=== PATIENT | male | born 1950 | race Caucasian/White ===

== ENCOUNTER → 2018-04-05 14:12 | Outpatient (CLI) | payer MEDICARE, OTHER ==
[~2018-04-05 14:12] MED LIST: ALDACTONE25 MG PO; BAYER CHEWABLE81 MG PO; COREG 3.1253.125 MG PO; LANOXIN125 MCG PO; LIPITOR10 MG PO; METOPROLOL-HCT1 EACH PO; POTASSIUM20 MEQ/11 PO; ZYLOPRIM300 MG PO
[2018-04-30 09:29] VITALS: BMI 26.2
== END | disposition home or self-care (01) ==
LOC: D.CT 04-01 15:00
DX: R06.00 Dyspnea, unspecified (principal); R93.89 Abnormal findings on diagnostic imaging of other specified body structures

== ENCOUNTER 2018-04-06 11:29 | Inpatient (IN) | payer MEDICARE, OTHER ==
[~2018-04-06] VITALS: Ht 180.3 cm; Wt 84.0 kg
--- NOTE | ~2018-04-06 | MORECARE ---
CASE MANAGEMENT DISCHARGE SUMMARY PATIENT: LAUREN ROSARIO UNIT: [id number] ADM DATE: 04/06/18 AGE: 68 : 48 SEX: M ROOM/BED: D.2124 AUTHOR: CRYSTAL MICHELLE PHYSICIAN: REFERRING PHYSICIAN: JOSE J DE LOS SANTOS MD DATE OF SERVICE: 04/14/18 Discharge Plan Patient Name: LAUREN ROSARIO Facility: [facility]:[place] : 1950 Planned Disposition: Home Anticipated Discharge Date: 04/14/18 Discharge Date: Expected LOS: 8 Initial Reviewer: [email or web address] Initial Review Date: 04/14/2018 Generated: 04/14/18 4:37 pm External Providers [facility] Next Contact Date: 04/14/2018 Service Request Date: Service Type: Resolution: Reviewer: Comments: Patient Name: LAUREN ROSARIO Page [phone] at 1538 All edits/amendments must be made on the electronic document DICTATION DATE: 04/14/181536 TELEVISION HOST: ALYSON 04/14/181536 RPT#: [id number] PR DATE: STATUS: ADM IN [facility] [address] [place] [address] END OF REPORT
--- NOTE | ~2018-04-06 | MORECARE ---
CASE MANAGEMENT DISCHARGE SUMMARY PATIENT: LAUREN ROSARIO UNIT: [id number] ADM DATE: 04/06/18 AGE: 68 : 48 SEX: M ROOM/BED: D.9224 AUTHOR: CRYSTAL MICHELLE PHYSICIAN: REFERRING PHYSICIAN: JOSE J DE LOS SANTOS MD DATE OF SERVICE: 04/15/18 Discharge Plan Patient Name: LAURNE ROSARIO Facility: [facility]:[place] : 1950 Planned Disposition: Home Anticipated Discharge Date: 04/14/18 Discharge Date: 04/14/2018 Expected LOS: 8 Initial Reviewer: [email or web address] Initial Review Date: 04/14/2018 Generated: 04/15/18 5:13 pm Comments DCP- Discharge Planning Updated by [email or web address]: Mo Howell on 04/15/18 3:[address] Patient Name: LAUREN ROSARIO Encounter No: [id number] : 1950 Primary Insurance: MEDICARE A & B Anticipated DC Date: 04-14-2018 Planned Disposition: Home DCP follow-up note: CM RECEIVED CALL FROM RANDOLPH OF [facility] PATIENT WHO INFORMED CM THAT THEY OFFERED PT THE OVERNIGHT PULSE OXIMETRY TESTING AND PT DECLINED THE TEST AND REPORTED HE DID NOT WANT TO SLEEP WITHOUT OXYGEN FOR THE TEST (PATIENT IS BORROWING OXYGEN FROM A FAMILY MEMBER). JANE Alvarez DCP- Discharge Planning Updated by [email or web address]: Mo Howell on 04/14/18 2:[address] Patient Name: LAUREN ROSARIO Admission Status: Urgent Accout number: [id number] Admission Date: 04-06-2018 : 1950 Admission Diagnosis:SHORTNESS OF BREATH Attending: JOSE J DE LOS SANTOS Current LOS: 8 Anticipated DC Date: 04-14-2018 Planned Disposition: Home Primary Insurance: MEDICARE A & B Discharge Planning Comments: CM MET WITH PT AND SPOUSE IN ROOM TO DISCUSS DISCHARGE PLANNING AND NEEDS. LAUREN ROSARIO provided verbal consent to discuss current and ongoing needs with/in the presence of: SPOUSE, RANDOLPH. PT REPORTS LIVING AT HOME INDEPENDENTLY WITH SPOUSE AND EXTENDED FAMILY. PT HAS NO MEDICAL EQUIPMENT AND NO OUTSIDE SERVICES ASSISTING IN THE HOME. CM DISCUSSED AVAILABILITY OF HOME HEALTH, REHAB SERVICES AND MEDICAL EQUIPMENT. PT DENIES DISCHARGE NEEDS, REPORTS HIS IS HERE TO PICK HIM UP FOR DISCHARGE HOME TODAY. IMPORTANT MESSAGE FROM MEDICARE PROVIDED AND EXPLAINED. PT REPORTS AGREEMENT WITH OVERNIGHT PULSE OXIMETRY ORDER, PT REPORTS NOT QUALIFYING DURING WALK TESTING TODAY (LOWEST 94% ON ROOM AIR DURING EXERTION) AND THE DOCTOR STATES PT NEEDS THE OXGYEN MAINLY AT NIGHT. PT WOULD LIKE TESTING FROM [facility] PATIENT. CM RECEIVED ORDER FOR OVERNIGHT PULSE OXIMETRY TESTING. CM CALLED [facility] PATIENT, , SPOKE TO RANDEE WHO WILL CONTACT PT FOR ARRANGEMENT OF TESTING. CM FAXED REFERRAL TO [facility] PATIENT AT [phone]. MECHANICAL INTEGRITY ENGINEER NURSE NOTIFIED. PT DENIES FURTHER NEEDS. DISCHARGE ADDRESS: [address] [place] [address], [place] [address]. Flake Or Shred Roll Operator: Mo Howell DCPIA - Discharge Planning Initial Assessment Updated by [email or web address]: Mo Howell on 04/14/18 3:46 pm * Is the patient Alert and Oriented? Yes * How many steps to enter\exit or inside your home? * PCP DR. DE LOS SANTOS * [facility] * Preadmission Environment Home with Family * ADLs Independent * Equipment None * Other Equipment [facility] PATIENT - PREFERRED PROVIDER * List name and contact numbers for known caregivers / representatives who currently or will assist patient after discharge: RANDOLPH ROSARIO, SPOUSE, * Verbal permission to speak to the caregivers and representatives has been obtained from the patient. Yes * Community resources currently utilized None * Please name any agencies selected above. NONE * Additional services required to return to the preadmission environment? No * Can the patient safely return to the preadmission environment? Yes * Has this patient been hospitalized within the prior 30 days at any hospital? No Coverage Notice Reviewer: [email or web address] - Mo Howell Notice Issued Date-Time: 04/14/2018 15:10 Notice Type: IM Discharge Notice Notice Delivered To: Patient Relationship to Patient: Mark Up Designer Name: Delivery Method: HAND - Hand Delivered Gladis Days: Prior Verbal Notification: Recipient Understood Notice: Yes Recipient Signature: Yes Med Rec Note Co-signed by Attending: Coverage Notice Comment: Last DP export: 04/14/18 2:56 Patient Name: LAUREN ROSARIO Page [id number] at 1613 All edits/amendments must be made on the electronic document DICTATION DATE: 04/15/181612 BUNCHER MACHINE: ALYSON 04/15/181612 RPT#: [id number] MD DATE:04/14/18 STATUS: DIS IN [facility] [address] [place] [address] END OF REPORT
--- NOTE | ~2018-04-06 | HEMODYNAMI ---
PATIENT:LAUREN ROSARIO MEDICAL RECORD: [id number] : [birth year] [facility] ADMISSION DATE: 04/06/18 Generatedon:04/08/20187:57 Patient name: LAUREN ROSARIO Patient #: [id number] SSN: D OB: 1950 Date of study: 04/08/2018 Page: Of Hemodynamic Procedure Report Patient Data Patient Demographics Procedure consent was obtained First Name: LAUREN Gender: Male Last Name: ABRAHAM : 1950 Patient #: [id number] Age: 68 year(s) Race: Unknown Additional ID: [id number] Contact details [address]: [address] [place] [address] [address] State: [place] City: [place] Zip code: [address] Past Medical History Allergies: No known allergies Admission Admission Data Admission Date: 04/06/2018 Admission Time: 11:29 Room #: D.2124 Procedure Procedure Types Cath Procedure Diagnostic Procedure LHC LHC w/Coronaries Sedation Charges Moderate Sedation up to 15 minutes Peripheral Cath Diagnostic Procedure Abd/Extremity Aortagram Procedure Description Procedure Date Procedure Date: 04/08/2018 Procedure Start Time: 7:42 Procedure End Time: 7:56 Procedure Staff Name Function Fredis Birmingham MD Performing Physician Mary Wu RT Monitor Carrie Buckner RN Nurse Pasquale Farmer RT Scrub Procedure Data Cath Procedure Fluoroscopy Diagnostic fluoroscopy Total fluoroscopy Time: 2.2 time: 2.2 min min Diagnostic fluoroscopy Total fluoroscopy dose: 765 dose: 765 mGy mGy Contrast Material Contrast Material Type Amount (ml) Isovue 300 88 Entry Location Entry Primary Successful Side Size Upsize Upsize Entry Closure Succes sful Closure Location (Fr) 1 (Fr) 2 (Fr) Remarks Device Remarks Femoral Right 5 Fr Exoseal artery Estimated blood loss: 5 ml Diagnostic catheters Device Type Used For End Catheter Placement MULTIPACK JL 4.0 5Fr Left Coronary catheter Angiography MULTIPACK 3DRC 5Fr Right Coronary catheter Angiography MULTIPACK Pigtail 5 Fr LV Angiography catheter MULTIPACK Pigtail 5 Fr Abdominal catheter aortogram Procedure Complications No complications Procedure Medications Medication Administration Route Dosage 0.9% NaCl I.V. 100 ml/hr Oxygen etCO2 Nasal cannula 2 l/min Lidocaine 2% added to field 20 Heparin Flush Bag added to field 2 bags (1000units/500ml NS) Versed I.V. 2 mg Fentanyl I.V. 50 mcg Versed I.V. 2 mg Fentanyl I.V. 50 mcg Hemodynamics Rest Heart Rate: 79 (bpm) Pressure Samples Time Site Value (mmHg) Purpose Heart Use Rate(bpm) 7:49 LV 97/11,29 EDP 72 7:50 AO 98/58(72) Pullback 71 7:50 LV 97/17,31 Pullback 71 Gradients Valve Time Site 1 Site 2 Mean SEP/DFP Peak To Heart Use (mmHg) (sec/min) Peak Rate (mmHg) (bpm) Aortic 7:50 LV AO 0 10 0 71 97/17,31 98/58(72) Calculations Valve P-P Mean Valve Index Valve Source Name Gradient Area Flow (cm2) Aortic 0 0 0 0 Snapshots Pre Cath Intra NCS Post Cath Vital Signs Time Heart Resp SPO2 etCO2 NIBP Rhythm Pain Sedation Rate (ipm) (%) (mmHg) (mmHg) Status Level (bpm) 7:29:59 72 21 97 21.1 110/68(91) NSR 0 (11) 10(A) , No pain 7:34:07 76 15 98 15.8 105/71(88) NSR 0 (11) 10(A) , No pain 7:38:17 70 14 97 22.6 97/62(82) NSR 0 (11) 10(A) , No pain 7:42:22 69 14 97 23.4 97/62(81) NSR 0 (11) 10(A) , No pain 7:46:30 70 12 98 25 89/60(72) NSR 0 (11) 9(A) , No pain 7:50:34 71 12 98 19.6 92/62(73) NSR 0 (11) 9(A) , No pain 7:54:36 71 13 97 26 93/64(73) NSR 0 (11) 10(A) , No pain Medications Time Medication Route Dose Verified Delivered Reason Notes Effe ctiveness by by 7:20:37 0.9% NaCl I.V. 100 Fredis Carrie used for ml/hr Vinnie Buckner expediter 7:20:44 Oxygen etCO2 2 Fredis Carrie used for Nasal l/min Vinnie Buckner procedure cannula RN 7:20:51 Lidocaine 2% added 20ml Fredis Fredis for local to vial Vinnie Birmingham MD anesthetic field 7:20:56 Heparin Flush added 2 Fredis Fredis used for Bag to bags Vinnie Birmingham MD procedure (1000units/500ml field NS) 7:37:41 Versed I.V. 2 mg Fredis Carrie for Vinnie Buckner sedation RN 7:37:47 Fentanyl I.V. 50 Fredis Carrie for mcg Vinnie Buckner sedation RN 7:42:01 Fentanyl I.V. 50 Fredis Carrie for mcg Vinnie Buckner sedation RN 7:42:51 Versed I.V. 2 mg Fredis Carrie for Vinnie Buckner sedation geographic information system surveyor Log Time Note 7:08:28 Time tracking: Regular hours (M-F 7:00 - 5:00) 7:08:31 Plan of Care:Hemodynamics will remain stable., Cardiac rhythm will remain stable., Comfort level will be maintained., Respiratory function will remain adequate., Patient/ family verbilizes understanding of procedure., Procedure tolerated without complication., Recovers from procedure without complications.. 7:08:41 Pasquale Farmer RT(R) sent for patient. Start room use. 7:20:37 0.9% NaCl 100 ml/hr I.V. was administered by Carrie Buckner RN; used for procedure; 7:20:44 Oxygen 2 l/min etCO2 Nasal cannula was administered by Carrie Buckner RN; used for procedure; 7:20:51 Lidocaine 2% 20ml vial added to field was administered by Fredis Birmingham MD; for local anesthetic; 7:20:56 Heparin Flush Bag (1000units/500ml NS) 2 bags added to field was administered by Fredis Birmingham MD; used for procedure; 7:22:15 Patient received from PCU to CCL 1 Alert and oriented. Tansferred to table in Supine position. 7:22:16 Warm blankets applied, and silvia hugger turned on for patient comfort. 7:22:16 Correct patient and procedure confirmed by team. 7:22:17 Signed procedure consent form obtained from patient. 7:22:18 ECG and BP/O2 sat monitors applied to patient. 7:22:19 Full Disclosure recording started 7:28:56 Vital chart was started 7:31:13 Baseline sample Acquired. 7:31:15 Rhythm: sinus rhythm 7:33:39 Pre-procedure instructions explained to patient. 7:34:00 H&P Date Dictated: 04/07/2018 Within 30 days and on chart.. 7:34:01 Pre-op teaching completed and patient verbalized understanding. 7:34:03 Family in waiting room. 7:34:04 Patient NPO since Midnight. 7:34:11 Patient allergic to No known allergies 7:34:16 Is the patient allergic to Iodine/contrast media? No. 7:34:19 Is patient on blood thinner?No 7:34:21 Patient diabetic? No. 7:34:25 Previous problem with sedation/anesthesia? No ? 7:34:28 Snore? No 7:34:29 Sleep apnea? No 7:34:30 Deviated septum? No 7:34:31 Opens mouth fully? Yes 7:34:31 Sticks out tongue? Yes 7:34:33 Airway obstruction? No ? 7:34:34 Dentures? No ? 7:34:38 Pre procedure: right dorsailis pedis pulse 2+ Normal; easily identifiable; not easily obliterated 7:34:40 Patient pain scale 0/10 ?. 7:35:03 IV RIGHT WRIST INFILTRATED. 7:35:17 IV patent on arrival in left forearm with 0.9% NaCl at KVO. 7:35:20 Lab results completed and on chart. 7:35:25 Right groin area was prepped with chlora-prep and draped in sterile fashion 7:35:26 Alarms reviewed by R. N. 7:35:26 Sharps counted by scrub and verified by R.N. 7:35:31 Use device set Femoral Dx 7:35:32 ACIST Syringe (89809) opened to sterile field. 7:35:32 Bag Decanter (2002S) opened to sterile field. 7:35:33 Medline Cath Pack ([id number]) opened to sterile field. 7:35:33 DIAGNOSTIC WIRE .035 260cm J wire (971561) opened to sterile field. 7:35:35 ACIST Hand Control (89569) opened to sterile field. 7:35:35 ACIST Manifold (89540) opened to sterile field. 7:35:36 DIAGNOSTIC Multipack 5Fr catheter set ([id number]) opened to sterile field. 7:35:37 Tegaderm 4 x 4 (1626W) opened to sterile field. 7:35:47 SHEATH 5FR [place] (OCY222) opened to sterile field. 7:37:08 Final Timeout: patient, procedure, and site verified with staff and physician. All members of the team are in agreement. 7:37:09 Right groin site verified by team. 7:37:13 Physical assessment completed. ASA score P 2 - A patient with mild systemic disease as per Fredis Birmingham MD. 7:37:16 Sedation plan: IV Moderate Sedation Medication:Versed, Fentanyl 7:37:41 Versed 2 mg I.V. was administered by Carrie Buckner RN; for sedation; 7:37:47 Fentanyl 50 mcg I.V. was administered by Carrie Buckner RN; for sedation; 7:39:57 Zero performed for pressure channel P1 7:40:01 Zero performed for pressure channel P1 7:40:04 Zero performed for pressure channel P1 7:40:07 Zero performed for pressure channel P1 7:41:15 Procedure started. 7:42:01 Fentanyl 50 mcg I.V. was administered by Carrie Buckner RN; for sedation; 7:42:06 Local anesthetic to right femoral artery with Lidocaine 2% by Fredis Birmingham MD.INITIAL ACCESS ONLY 7:42:51 Versed 2 mg I.V. was administered by Carrie Buckner RN; for sedation; 7:43:41 A 5 Fr sheath was inserted into the Right Femoral artery 7:44:00 A MULTIPACK JL 4.0 5Fr catheter was advanced over the wire and used for Left Coronary Angiography. 7:46:26 Catheter removed. 7:47:16 A MULTIPACK 3DRC 5Fr catheter was advanced over the wire and used for Right Coronary Angiography. 7:48:09 Catheter removed. 7:49:21 A MULTIPACK Pigtail 5 Fr catheter was advanced over the wire and used for LV Angiography. 7:50:02 LV gram done using IBRAHIM 7:50:04 LV hemodynamics recorded. 7:50:07 Injector settings: Ml/sec: 10, Volume: 20, 7:50:27 EF : 20 % 7:51:26 A MULTIPACK Pigtail 5 Fr catheter was advanced over the wire and used for Abdominal aortogram. 7:51:36 Procedure type changed to Cath procedure, Diagnostic procedure, LHC, LHC w/Coronaries, Sedation Charges, Moderate Sedation up to 15 minutes, Peripheral Cath Diagnostic Procedure, Abd/Extremity, Aortagram 7:52:25 EXOSEAL 5Fr (EX500) opened to sterile field. 7:52:28 Catheter removed. 7:52:48 Sheath removed intact; hemostasis achieved with Exoseal to the Right Femoral artery. 7:52:50 Procedure ended.(Physican Out) 7:53:26 Fluoroscopy time 02.20 minutes. 7:53:32 Flurop Dose total: 765 7:53:32 Fluoroscopy dose: 765 mGy 7:53:35 Contrast amount:Isovue 300 88ml. 7:53:36 Sharps counted by scrub and verified by R.N. 7:53:38 Insertion/operative site no bleeding no hematoma. 7:53:48 Post-op/insertion site Right Femoral artery dressed using a 4 x 4 and Tegaderm. 7:53:51 Post right femoral artery:stable, clean and dry 7:53:53 Post Procedure Pulses reassessed and unchanged 7:53:59 Post-procedure physical assessment completed. ASA score P 2 - A patient with mild systemic disease as per Fredis Birmingham MD. 7:54:01 Post procedure rhythm: unchanged. 7:54:09 Estimated blood loss: 5 ml 7:54:11 Post procedure instruction explained to patient.Patient verbalizes understanding. 7:54:11 Patient needs reinforcement of post procedure teaching. 7:54:14 See physician's report for complete and final results. 7:54:20 Procedure Complication : No complications 7:55:02 Procedure and supply charges have been captured, reviewed, submitted and are correct. 7:56:34 Vital chart was stopped 7:56:36 Report given to PCU. 7:56:40 Patient transfered to PCU with Bed. 7:56:48 Procedure ended. 7:56:48 Full Disclosure recording stopped 7:56:52 End room use (Document Last) Device Usage Item Name Manufacture Quantity Catalog Hospital Part Current Minimal L ot# / Number Charge Number Stock Stock Serial# Code ACIST Acist 1 99262 146068 068922 579784 20 Syringe Medical (51441) Systems Inc Bag Microtek 1 2001S 0991478 29279 867719 5 Decanter Medical Inc. () Medline Medline 1 [id number] 529741 42626 164829 5 Cath Pack ([id number]) DIAGNOSTIC St Johnny 1 941293 537119 050264 715847 30 WIRE .035 260cm J wire (271807) ACIST Hand Acist 1 13809 587853 907142 817231 5 Control Medical (24165) Systems Inc ACIST Acist 1 07532 998880 833055 102970 5 Manifold Medical (31330) Systems Inc DIAGNOSTIC Cardinal 1 JE9635 892387 37355 208970 30 Multipack Health 5Fr catheter set (WI8315) Tegaderm 4 3M 1 1626W 084955 687590 334871 5 x 4 (1626W) SHEATH 5FR Terumo 1 MHD004 842129 915653 223775 40 [place] (WAI968) MULTIPACK Cardinal 1 580394 5 JL 4.0 5Fr Health catheter MULTIPACK Cardinal 1 984127 5 3DRC 5Fr Health catheter MULTIPACK Cardinal 1 396415 5 Pigtail 5 Health Fr catheter EXOSEAL 5Fr Cardinal 1 EX500 969749 070026 047206 10 (EX500) Health Signature Audit [place] Stage Time Signature Unsigned Intra-Procedure 04/08/2018 Mary 7:57:03 AM Counts RT(R) Signatures Monitor : Mary Signature : Counts RT Date : Time : [facility] [address] [place] [address]
--- NOTE | ~2018-04-06 | MORECARE ---
CASE MANAGEMENT DISCHARGE SUMMARY PATIENT: LAUREN ROSARIO UNIT: [id number] ADM DATE: 04/06/18 AGE: 68 : 48 SEX: M ROOM/BED: D.2124 AUTHOR: CRYSTAL MICHELLE PHYSICIAN: REFERRING PHYSICIAN: JOSE J DE LOS SANTOS MD DATE OF SERVICE: 04/14/18 Discharge Plan Patient Name: LAUREN ROSARIO [facility] [facility] 1950 Planned Disposition: Home Anticipated Discharge Date: 04/14/18 Discharge Date: Expected LOS: 8 Initial Reviewer: [email or web address] Initial Review Date: 04/14/2018 Generated: 04/14/18 4:47 pm DCPIA - Discharge Planning Initial Assessment Updated by [email or web address]: Mo Howell on 04/14/18 3:46 pm * Is the patient Alert and Oriented? Yes * How many steps to enter\exit or inside your home? * PCP DR. DE LOS SANTOS * [facility] * Preadmission Environment Home with Family * ADLs Independent * Equipment None * Other Equipment [facility] PATIENT - PREFERRED PROVIDER * List name and contact numbers for known caregivers / representatives who currently or will assist patient after discharge: RANDOLPH ROSARIO, SPOUSE, * Verbal permission to speak to the caregivers and representatives has been obtained from the patient. Yes * Community resources currently utilized None * Please name any agencies selected above. NONE * Additional services required to return to the preadmission environment? No * Can the patient safely return to the preadmission environment? Yes * Has this patient been hospitalized within the prior 30 days at any hospital? No Last DP export: 04/14/18 2:38 Patient Name: LAUREN ROSARIO Page 05247 at 1547 All edits/amendments must be made on the electronic document DICTATION DATE: 04/14/181546 SVP GROUP DIRECTOR: ALYSON 04/14/181546 RPT#: [id number] DC DATE: STATUS: ADM IN [facility] [address] [place] [address] END OF REPORT
--- NOTE | ~2018-04-06 | HP ---
PATIENT: LAUREN ROSARIO MEDICAL RECORD: [id number] ACCOUNT: [id number] LOCATION:[address] : [birth year] ADMISSION DATE: 04/06/18 PCP: JOSE J DE LOS SANTOS MD HISTORY AND PHYSICAL EXAMINATION DATE OF ADMISSION: 04/06/2018 CHIEF COMPLAINT: Shortness of breath. HISTORY: This is a 68-year-old male I saw in the clinic today for followup of shortness of breath. He saw a nurse practitioner about a week ago for shortness of breath. Chest x-ray at that time suggested pleural effusions. Labs all okay except potassium was a little low. He had a CT of the chest with contrast done at [place] yesterday, showed large bilateral pleural effusions. He has orthopnea. He has to sit up or lean forward just to be able to breathe. Symptoms started rather acutely on March 28 after he came home from [place]. With his ongoing symptoms, he is directly admitted for further evaluation of his pleural effusions. PAST MEDICAL AND SURGICAL HISTORY: He has hypertension, high cholesterol, gout, and history of achalasia. He has had stroke with lacunar infarcts in thalamus and caudate nucleus, causing behavioral and personality changes. [facility] years [facility]. CURRENT MEDICATIONS: He has been on liquid potassium for the last week due to his low potassium of 3.0. He is on atorvastatin 10 mg a day, allopurinol 300 mg a day, metoprolol tartrate 100 mg/hydrochlorothiazide 25 mg one half tablet once a day, and aspirin 81 mg once a day. ALLERGIES: None known. HABITS: Never smoked. No history of alcohol or drug use. FAMILY HISTORY: No known GI disease. No known heart or lung problems. SOCIAL HISTORY: He is . 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 REVIEW OF SYSTEMS: GENERAL: He has noted weakness and fatigue over the last several months. HEENT: No particular sinus or allergy problems. RESPIRATORY: No history of asthma, emphysema, or shortness of breath. CARDIAC: No history of chest pain, palpitations, orthopnea, or lower extremity edema. GASTROINTESTINAL: He has history of achalasia. He has had procedures done by Dr. Gonsales including lower esophageal dilatations. GENITOURINARY: No significant problems there. MUSCULOSKELETAL: Few arthritic aches and pains. NEUROLOGIC: With his history of stroke, he has had some personality changes. PSYCHIATRIC: Denies depression or melancholia. PHYSICAL EXAMINATION: VITAL SIGNS: Temperature 96.3, pulse 59, respirations 20, blood pressure 104/64, and O2 sat 98% to 100%. GENERAL: He is awake, alert, and does not appear in acute distress. HISTORY AND PHYSICAL [id number] LAUREN ROSARIO HEENT: Unremarkable. NECK: Supple. No JVD or bruit. HEART: Regular rate and rhythm without murmur. LUNGS: Diminished breath sounds in the bases bilaterally. ABDOMEN: Soft. EXTREMITIES: No edema. LABORATORY DATA: CBC with white count 5400, hemoglobin 13.4, hematocrit 40.1, and platelet count 163,000. INR 1.17. Basic metabolic panel is all normal. Liver functions are normal. DIAGNOSTIC DATA: CT of the chest with contrast done on April 05 showed bilateral pleural effusions. ASSESSMENT: 1. Orthopnea. 2. Bilateral pleural effusions. 3. Shortness of breath. PLAN: We will admit. We will ask radiology to perform thoracentesis. We will consult pulmonary initially and see if we can find the cause for his problems. We will schedule echocardiogram and other tests or procedures as warranted. TRANSINT:[id number] Voice Confirmation ID: [id number] DOCUMENT ID: [id number] JOSE J DE LOS SANTOS MD at 0846 CC: [id number] DICTATION DATE: 04/07/18 0016 PERSONNEL DIRECTOR: 04/07/18 0055 ADM IN [facility] [address] [place] [address]
--- NOTE | ~2018-04-06 | EC ---
PATIENT:LAUREN ROSARIO DATE OF SERVICE: 04/06/18 SEX: M MEDICAL RECORD: [id number] DATE OF : [birth year] LOCATION:D.M2 D.212 AGE OF PATIENT: 68 ADMISSION DATE: 04/06/18 REFERRING PHYSICIAN: INTERPRETING PHYSICIAN: EDIS ABEL MD ECHOCARDIOGRAM REPORT ECHO CHARGES 5 ECHO LIMITED Date: 04/09/18 CLINICAL DIAGNOSIS: ASSESS EF PATIENT ON DOBUTAMINE ECHOCARDIOGRAPHIC MEASUREMENTS (adult normal given) AC root (d.<3.7cm) 3.9 cm LV Septum d (<1.2 cm> 1.1 cm Valve Excursion 1.3 cm LV Septum (systole) 1.2 cm Left Atria (s.<4.0cm> 4.4 cm LVPW d(<1.2cm) 1.4 cm RV (d.<2.3cm) 4.5 cm LVPW (sytole) 1.5 cm LV diastole(<5.6CM) 5.4 cm MV E-F(>70mm/sec) cm LV systole 4.8 cm LVOT Diameter 2.1 cm MV exc.(>10mm) 2.0 cm Est.ejection fraction (50-75%) % DOPPLER: LVIT cm/sec A 30.0 cm/sec E 87.0 cm/sec LA cm/sec RVSP 15 mmHg LVOT 97 cm/sec AOP1/2T 538 m/s Asc. Ao 111 cm/sec RVOT 46 cm/sec RA cm/sec PA 66 cm/sec AV Gradient Peak 4394 mmHg AV Mean 2.65 mmHg AV Area 3.1 cm MV Gradient Peak 4.16 mmHg MV Mean 1.37 mmHg MV Area cm COMMENTS: Refrigeration Mechanic: Vilma VITAL Shop Mechanic: [address] Dr[address] [place] TAPE# PACS Pericardial Effusion N DATE OF SERVICE: 04/09/2018 PROCEDURE: Limited echo for ejection fraction. FINDINGS: Left ventricular chamber size is within normal limits. Left ventricular systolic function is mild to moderately reduced. Overall ejection fraction 30% to 35%. TRANSINT:[id number] Voice Confirmation ID: [id number] DOCUMENT ID: [id number] ECHOCARDIOGRAM REPORT [id number] MEDINAYARELISLAUREN EDIS ABEL MD at 1031 CC: [id number] DICTATION DATE: 04/09/18 1405 CASTING REPAIRER: 04/09/18 [address] [facility] [address] [id number]
--- NOTE | ~2018-04-06 | MORECARE ---
CASE MANAGEMENT DISCHARGE SUMMARY PATIENT: LAUREN ROSARIO UNIT: [id number] ADM DATE: 04/06/18 AGE: 68 : 48 SEX: M ROOM/BED: D.3012 AUTHOR: CRYSTAL MICHELLE PHYSICIAN: REFERRING PHYSICIAN: JOSE J DE LOS SANTOS MD DATE OF SERVICE: 04/14/18 Discharge Plan Patient Name: LAUREN ROSARIO Facility: [facility]:[place] : 1950 Planned Disposition: Home Anticipated Discharge Date: 04/14/18 Discharge Date: Expected LOS: 8 Initial Reviewer: [email or web address] Initial Review Date: 04/14/2018 Generated: 04/14/18 4:56 pm Comments DCP- Discharge Planning Updated by [email or web address]: Mo Howell on 04/14/18 2:[address] Patient Name: LAUREN ROSARIO Admission Status: Urgent Accout number: [id number] Admission Date: 04-06-2018 : 1950 Admission Diagnosis:SHORTNESS OF BREATH Attending: JOSE J DE LOS SANTOS Current LOS: 8 Anticipated DC Date: 04-14-2018 Planned Disposition: Home Primary Insurance: MEDICARE A & B Discharge Planning Comments: CM MET WITH PT AND SPOUSE IN ROOM TO DISCUSS DISCHARGE PLANNING AND NEEDS. LAUREN ROSARIO provided verbal consent to discuss current and ongoing needs with/in the presence of: SPOUSE, RANDOLPH. PT REPORTS LIVING AT HOME INDEPENDENTLY WITH SPOUSE AND EXTENDED FAMILY. PT HAS NO MEDICAL EQUIPMENT AND NO OUTSIDE SERVICES ASSISTING IN THE HOME. CM DISCUSSED AVAILABILITY OF HOME HEALTH, REHAB SERVICES AND MEDICAL EQUIPMENT. PT DENIES DISCHARGE NEEDS, REPORTS HIS IS HERE TO PICK HIM UP FOR DISCHARGE HOME TODAY. IMPORTANT MESSAGE FROM MEDICARE PROVIDED AND EXPLAINED. PT REPORTS AGREEMENT WITH OVERNIGHT PULSE OXIMETRY ORDER, PT REPORTS NOT QUALIFYING DURING WALK TESTING TODAY (LOWEST 94% ON ROOM AIR DURING EXERTION) AND THE DOCTOR STATES PT NEEDS THE OXGYEN MAINLY AT NIGHT. PT WOULD LIKE TESTING FROM [place] PAT[place]. CM RECEIVED ORDER FOR OVERNIGHT PULSE OXIMETRY TESTING. CM CALLED [place] PATIENT, , SPOKE TO RANDEE WHO WILL CONTACT PT FOR ARRANGEMENT OF TESTING. CM FAXED REFERRAL TO [place] [facility] PATIENT AT [phone]. FIELD MERCHANDISER NURSE NOTIFIED. PT DENIES FURTHER NEEDS. DISCHARGE ADDRESS: [address] [place] [address]. [id number]. Installer Soft Top: Mo Howell DCPIA - Discharge Planning Initial Assessment Updated by IMER: Mo Howell on 04/14/18 3:46 pm * Is the patient Alert and Oriented? Yes * How many steps to enter\exit or inside your home? * PCP DR. DE LOS SANTOS * Pharmacy [facility] * Preadmission Environment Home with Family * ADLs Independent * Equipment None * Other Equipment [place] PATIENT - PREFERRED PROVIDER * List name and contact numbers for known caregivers / representatives who currently or will assist patient after discharge: RANDOLPH ROSARIO, SPOUSE, * Verbal permission to speak to the caregivers and representatives has been obtained from the patient. Yes * Community resources currently utilized None * Please name any agencies selected above. NONE * Additional services required to return to the preadmission environment? No * Can the patient safely return to the preadmission environment? Yes * Has this patient been hospitalized within the prior 30 days at any hospital? No Coverage Notice Reviewer: [id number] - Mo Howell Notice Issued Date-Time: 04/14/2018 15:10 Notice Type: IM Discharge Notice Notice Delivered To: Patient Relationship to Patient: Sail Lay Out Worker Name: Delivery Method: HAND - Hand Delivered Gladis Days: Prior Verbal Notification: Recipient Understood Notice: Yes Recipient Signature: Yes Med Rec Note Co-signed by Attending: Coverage Notice Comment: Last DP export: 04/14/18 2:47 Patient Name: LAUREN ROSARIO Page [id number] at 1556 All edits/amendments must be made on the electronic document DICTATION DATE: 04/14/181554 INCUBATOR TENDER: ALYSON 04/14/18 155 RPT#: [id number] DC DATE: STATUS: ADM IN [place] [address] [place] [address] END OF REPORT
--- NOTE | ~2018-04-06 | EC ---
PATIENT:LAUREN ROSARIO DATE OF SERVICE: 04/06/18 SEX: M MEDICAL RECORD: [id number] DATE OF : [birth year] LOCATION:D.M2 D.212 AGE OF PATIENT: 68 ADMISSION DATE: 04/06/18 REFERRING PHYSICIAN: INTERPRETING PHYSICIAN: MIGUEL MCDERMOTT MD ECHOCARDIOGRAM REPORT ECHO CHARGES 4 ECHO COMPLETE Date: 04/06/18 CLINICAL DIAGNOSIS: PLERURAL EFFUSION ECHOCARDIOGRAPHIC MEASUREMENTS (adult normal given) AC root (d.<3.7cm) 3.9 cm LV Septum d (<1.2 cm> 1.1 cm Valve Excursion 1.3 cm LV Septum (systole) 1.2 cm Left Atria (s.<4.0cm> 4.4 cm LVPW d(<1.2cm) 1.4 cm RV (d.<2.3cm) 4.5 cm LVPW (sytole) 1.5 cm LV diastole(<5.6CM) 5.4 cm MV E-F(>70mm/sec) cm LV systole 4.8 cm LVOT Diameter 2.1 cm MV exc.(>10mm) 2.0 cm Est.ejection fraction (50-75%) % DOPPLER: LVIT cm/sec A 30.0 cm/sec E 87.0 cm/sec LA cm/sec RVSP 15 mmHg LVOT 97 cm/sec AOP1/2T 538 m/s Asc. Ao 111 cm/sec RVOT 46 cm/sec RA cm/sec PA 66 cm/sec AV Gradient Peak 4394 mmHg AV Mean 2.65 mmHg AV Area 3.1 cm MV Gradient Peak 4.16 mmHg MV Mean 1.37 mmHg MV Area cm COMMENTS: Benzene Worker: Vilma VITAL Director Home Health: [address] Dr. [place] TAPE# PACS Pericardial Effusion N DATE OF SERVICE: 04/06/2018 Adequate 2-D echo, color flow and spectral Doppler, and M-mode. No LVH. LV internal dimensions are normal. LV is globally hypokinetic with reduced EF. Estimated EF is 20% to 25%. Aortic valve sclerosis without stenosis by Doppler interrogation. Left atrium is dilated at 4.4 cm. Mitral valve is thickened. Mild MR. Right-sided chamber is grossly normal. Mild TR. Incidental note is made of large pleural effusion. ECHOCARDIOGRAM REPORT [id number] LAUREN ROSARIO TRANSINT:[id number] Voice Confirmation ID: [id number] DOCUMENT ID: [id number] MIGUEL MCDERMOTT MD at 1302 CC: [id number] DICTATION DATE: 04/06/18 140 STUDENT MINISTRIES DIRECTOR: 04/06/18 1447 ADM IN [facility] [address] [id number]
[2018-04-06] MEDS ORDERED: METOPROLOL-HCT1 EACH PO (12:02)
[2018-04-06] MEDS ORDERED: ZYLOPRIM300 MG PO (12:03)
[2018-04-06] MEDS ORDERED: LIPITOR10 MG PO (12:03)
[2018-04-06] MEDS ORDERED: BAYER CHEWABLE81 MG PO (12:04)
[2018-04-06 12:06] VITALS: BP 104/64; BMI 28.8
[2018-04-06 13:21] LABS: BASOPHILS 0.6 % (0-2); EOSINOPHILS 1.9 % (0-7); HEMATOCRIT 40.1 % (42.0-54.0); HEMOGLOBIN 13.4 g/dL (13.5-17.5); IMMATURE GRANULOCYTES 0.2 % (0-5); LYMPHOCYTES 12.4 % (15-50); MCHC 33.4 g/dL (31.0-37.0); MCV 95.7 fL (80.0-100.0); MEAN PLATELET VOLUME 11.3 fL (7.4-10.4); MONOCYTES 7.4 % (2-11); NEUTROPHILS 77.5 % (40-80); PLATELET COUNT 163 10x3/uL (130-400); RBC 4.19 10x6/uL (4.20-6.10); RDW 15.6 % (11.5-14.5); WBC 5.4 10x3/uL (4.8-10.8)
[2018-04-06 13:35] LABS: INR 1.17 (0.85-1.17); PROTIME 14.5 SECONDS (11.6-15.0)
[2018-04-06 13:36] LABS: ALBUMIN 3.4 g/dL (3.4-5.0); ANION GAP 11.6 mmol/L (8-16); BILIRUBIN - TOTAL 0.87 mg/dL (0.2-1.3); CALCIUM 8.5 mg/dL (8.5-10.1); CARBON DIOXIDE 28.6 mmol/L (21.0-32.0); CREATININE - SERUM 1.1 mg/dL (0.6-1.3); POTASSIUM - SERUM 4.2 mmol/L (3.5-5.1); PROTEIN - SERUM 6.1 g/dL (6.4-8.2)
[2018-04-06] MEDS ORDERED: POTASSIUM20 MEQ/11 PO (13:43)
[2018-04-06 15:28] VITALS: BP 105/39
[2018-04-06 17:30] LABS: PROTEIN - BODY FLUID 1.2 G/DL
[2018-04-06 18:27] LABS: MACROPHAGES BF 42 %; MESOTHELIALS BF 5 %; NEUT - BF 34 %
[2018-04-06 21:01] VITALS: BP 98/62
[2018-04-07] VITALS: BP 91/57
[2018-04-07 04:57] LABS: BASOPHILS 0.6 % (0-2); EOSINOPHILS 2.3 % (0-7); HEMOGLOBIN 12.5 g/dL (13.5-17.5); IMMATURE GRANULOCYTES 0.4 % (0-5); LYMPHOCYTES 9.7 % (15-50); MCH 31.3 pg (26.0-34.0); MCHC 32.9 g/dL (31.0-37.0); MCV 95.2 fL (80.0-100.0); MEAN PLATELET VOLUME 11.3 fL (7.4-10.4); MONOCYTES 6.6 % (2-11); NEUTROPHILS 80.4 % (40-80); PLATELET COUNT 134 10x3/uL (130-400); RBC 3.99 10x6/uL (4.20-6.10); RDW 15.5 % (11.5-14.5)
[2018-04-07 05:02] LABS: WBC 8.2 10x3/uL (4.8-10.8)
[2018-04-07 05:28] LABS: ALBUMIN 2.9 g/dL (3.4-5.0); ANION GAP 9.8 mmol/L (8-16); BILIRUBIN - TOTAL 0.89 mg/dL (0.2-1.3); CALCIUM 8.3 mg/dL (8.5-10.1); CARBON DIOXIDE 28.4 mmol/L (21.0-32.0); CREATININE - SERUM 1.1 mg/dL (0.6-1.3); MAGNESIUM - SERUM 1.7 mg/dL (1.8-2.4); PHOSPHOROUS 3.1 mg/dL (2.5-4.9); POTASSIUM - SERUM 4.2 mmol/L (3.5-5.1); PROTEIN - SERUM 5.3 g/dL (6.4-8.2)
[2018-04-07 06:11] VITALS: BP 92/44
[2018-04-07 08:30] VITALS: BP 94/57
[2018-04-07 11:37] VITALS: BP 93/58
[2018-04-07 15:34] VITALS: BP 107/66
[2018-04-07 20:33] VITALS: BP 108/68
[2018-04-08 00:34] VITALS: BP 92/44
[2018-04-08 06:14] VITALS: BP 81/47
[2018-04-08 11:33] VITALS: BP 102/63
[2018-04-08 15:57] VITALS: BP 97/59
[2018-04-08 16:16] LABS: ACID FAST SMEAR Negative (()); AFB SPECIMEN PROCESSING Not Indicated (())
[2018-04-08 19:00] VITALS: BP 116/65
[2018-04-09 02:11] VITALS: BP 109/73
[2018-04-09 04:00] VITALS: BP 91/53
[2018-04-09 06:32] LABS: CALCIUM 7.8 mg/dL (8.5-10.1); CARBON DIOXIDE 28.7 mmol/L (21.0-32.0); CREATININE - SERUM 1.2 mg/dL (0.6-1.3); POTASSIUM - SERUM 3.7 mmol/L (3.5-5.1)
[2018-04-09 09:00] VITALS: BP 87/48
[2018-04-09 13:20] LABS: FUNGUS STAIN Final report (())
[2018-04-09 13:29] VITALS: BP 88/53
[2018-04-09 16:06] VITALS: BP 81/48
[2018-04-09 20:00] VITALS: BP 94/56
[2018-04-10 00:10] VITALS: BP 90/56
[2018-04-10 04:00] VITALS: BP 89/55
[2018-04-10 08:53] VITALS: BP 95/56
[2018-04-10 12:10] VITALS: BP 98/61
[2018-04-10 15:38] VITALS: BP 105/77
[2018-04-10 20:00] VITALS: BP 91/53
[2018-04-11 00:06] VITALS: BP 86/43
[2018-04-11 04:00] VITALS: BP 82/48
[2018-04-11 06:06] LABS: BASOPHILS 0.7 % (0-2); EOSINOPHILS 4.7 % (0-7); HEMATOCRIT 37.1 % (42.0-54.0); HEMOGLOBIN 12.2 g/dL (13.5-17.5); IMMATURE GRANULOCYTES 0.2 % (0-5); LYMPHOCYTES 17.3 % (15-50); MCH 31.4 pg (26.0-34.0); MCHC 32.9 g/dL (31.0-37.0); MCV 95.4 fL (80.0-100.0); MEAN PLATELET VOLUME 11.6 fL (7.4-10.4); MONOCYTES 8.9 % (2-11); NEUTROPHILS 68.2 % (40-80); PLATELET COUNT 147 10x3/uL (130-400); RBC 3.89 10x6/uL (4.20-6.10); RDW 15.3 % (11.5-14.5); WBC 5.4 10x3/uL (4.8-10.8)
[2018-04-11 06:10] LABS: CALC OSMOLALITY 288 mosm/kg (275-300); CALCIUM 8.1 mg/dL (8.5-10.1); CARBON DIOXIDE 28.5 mmol/L (21.0-32.0); CHLORIDE - SERUM 109 mmol/L (98-107); GLUCOSE 94 mg/dL (74-106); POTASSIUM - SERUM 3.9 mmol/L (3.5-5.1); SODIUM 144 mmol/L (136-145); UREA NITROGEN 19 mg/dL (7-18); eGFR NON AFRICAN AMERICAN 78 mL/min (90-120)
[2018-04-11 07:59] VITALS: BP 93/44
[2018-04-11 12:10] VITALS: BP 103/65
[2018-04-11 16:16] VITALS: BP 103/59
[2018-04-11 21:14] VITALS: BP 110/75
[2018-04-12 01:15] VITALS: BP 100/60
[2018-04-12 04:45] VITALS: BP 98/63
[2018-04-12 05:27] LABS: CALC OSMOLALITY 287 mosm/kg (275-300); CALCIUM 8.8 mg/dL (8.5-10.1); CARBON DIOXIDE 28.8 mmol/L (21.0-32.0); CHLORIDE - SERUM 108 mmol/L (98-107); CREATININE - SERUM 0.9 mg/dL (0.6-1.3); GLUCOSE 89 mg/dL (74-106); POTASSIUM - SERUM 3.7 mmol/L (3.5-5.1); SODIUM 144 mmol/L (136-145); UREA NITROGEN 19 mg/dL (7-18); eGFR NON AFRICAN AMERICAN 89 mL/min (90-120)
[2018-04-12 07:00] VITALS: BP 96/59
[2018-04-12 11:00] VITALS: BP 88/56
[2018-04-12 15:00] VITALS: BP 88/50
[2018-04-13 06:59] VITALS: BP 92/56
[2018-04-13 08:54] VITALS: BP 106/64
[2018-04-13 11:00] VITALS: BP 97/58
[2018-04-13 15:00] VITALS: BP 99/56
[2018-04-13 22:21] VITALS: BP 107/79
[2018-04-14 00:54] VITALS: BP 95/57
[2018-04-14 05:32] VITALS: BP 90/58
[2018-04-14 08:31] VITALS: BP 97/53
[2018-04-14 12:00] VITALS: BP 107/63
[2018-04-14 13:29] VITALS: Ht 180.3 cm; Wt 84.0 kg
[2018-04-14] MEDS ORDERED: ALDACTONE25 MG PO (14:37)
[2018-04-14] MEDS ORDERED: COREG 3.1253.125 MG PO (14:37)
[2018-04-14] MEDS ORDERED: LANOXIN125 MCG PO (14:37)
[2018-04-14 16:03] VITALS: BP 97/56
[2018-05-05 12:17] LABS: FUNGUS MYCOLOGY CULTURE Final report (())
== END 2018-04-14 17:14 | disposition home or self-care (01) | DRG 286 ==
LOC: D.M2 11:29
PROVIDERS: Family Medicine; Internal Medicine Cardiovascular Disease; Internal Medicine Pulmonary Disease
PROC: 0W993ZZ Drainage of Right Pleural Cavity, Percutaneous Approach (ICD-10-PCS; 2018-04-06)
PROC: B2151ZZ Fluoroscopy of Left Heart using Low Osmolar Contrast (ICD-10-PCS; 2018-04-08)
PROC: 4A023N7 Measurement of Cardiac Sampling and Pressure, Left Heart, Percutaneous Approach (ICD-10-PCS; 2018-04-08)
PROC: B4101ZZ Fluoroscopy of Abdominal Aorta using Low Osmolar Contrast (ICD-10-PCS; 2018-04-08)
PROC: B2111ZZ Fluoroscopy of Multiple Coronary Arteries using Low Osmolar Contrast (ICD-10-PCS; principal; 2018-04-08 07:08)
DX: I25.10 Atherosclerotic heart disease of native coronary artery without angina pectoris (principal); I50.21 Acute systolic (congestive) heart failure; J90 Pleural effusion, not elsewhere classified; I11.0 Hypertensive heart disease with heart failure; E78.00 Pure hypercholesterolemia, unspecified; I08.1 Rheumatic disorders of both mitral and tricuspid valves; K22.0 Achalasia of cardia; K21.9 Gastro-esophageal reflux disease without esophagitis; J30.9 Allergic rhinitis, unspecified; E78.5 Hyperlipidemia, unspecified; I25.5 Ischemic cardiomyopathy; J98.01 Acute bronchospasm; I48.91 Unspecified atrial fibrillation; Z86.73 Personal history of transient ischemic attack (TIA), and cerebral infarction without residual deficits

== ENCOUNTER 2018-04-28 10:55 | Inpatient (IN) | payer MEDICARE, OTHER ==
[~2018-04-28] VITALS: Ht 180.3 cm; Wt 80.0 kg
[2018-04-28] VITALS (41 sets, daily range): BP systolic 83–115; BP diastolic 42–73; BMI 24.4; BMI 24.5
--- NOTE | ~2018-04-28 | MORECARE ---
CASE MANAGEMENT DISCHARGE SUMMARY PATIENT: LAUREN ROSARIO UNIT: [id number] ADM DATE: 04/28/18 AGE: 68 : 48 SEX: M ROOM/BED: D.[facility] AUTHOR: CRYSTAL MICHELLE PHYSICIAN: REFERRING PHYSICIAN: YEIMI GARVIN M.D. DATE OF SERVICE: 05/07/18 Discharge Plan Patient Name: LAUREN ROSARIO Facility: [facility] : 1950 Planned Disposition: Inpatient Rehab Anticipated Discharge Date: Discharge Date: Expected LOS: Initial Reviewer: [email or web address] Initial Review Date: 04/28/2018 Generated: 05/07/18 12:52 pm Comments DCP- Discharge Planning Updated by [email or web address]: Faith Nuñez on 05/07/18 10:[address] Patient Name: LAUREN ROSARIO Encounter No: [id number] : 1950 Primary Insurance: MEDICARE A & B Anticipated DC Date: Planned Disposition: Inpatient Rehab External Planned Provider: : [facility] Inpatient Rehab DCP follow-up note: Patient and family in agreement with discharge plan. No changes to plan. Case management will follow and assist as needed. Faith Nuñez DCP- Discharge Planning Updated by [email or web address]: Faith Nuñez on 04/30/18 4:[address] Late Entry 04/30/18 @ 1040 Patient Name: LAUREN ROSARIO Admission Status: Elective Accout number: [id number] Admission Date: 04-28-2018 : 1950 Admission Diagnosis:ISCHEMIC CARDIOMYOPATHY Attending: YEIMI GARVIN Current LOS: 2 Anticipated DC Date: Planned Disposition: Home Primary Insurance: MEDICARE A & B Discharge Planning Comments: CM met with patient spouse Kaleigh this am. Patient currently still on vent at this time. Kaleigh plans on patient returning to their home upon discharge. she denies any discharge needs at this time. CM will continue to follow and assist as needed with discharge planning / needs. Emergency Vehicle Dispatcher: Faith Nuñez DCPIA - Discharge Planning Initial Assessment Updated by [email or web address]: Faith Nuñez on 04/30/18 5:32 pm * Is the patient Alert and Oriented? Yes * How many steps to enter\exit or inside your home? ramp * PCP josef [facility] * Preadmission Environment Home with Family * ADLs Independent * Equipment None * Verbal permission to speak to the caregivers and representatives has been obtained from the patient. N/A * Community resources currently utilized None * Additional services required to return to the preadmission environment? No * Can the patient safely return to the preadmission environment? Yes * Has this patient been hospitalized within the prior 30 days at any hospital? Yes Coverage Notice Reviewer: [id number] Hood Roy Notice Issued Date-Time: 05/06/2018 14:47 Notice Type: IM Discharge Notice Notice Delivered To: Patient Relationship to Patient: Self Staff Radiologist Name: Delivery Method: HAND - Hand Delivered Gladis Days: Prior Verbal Notification: Recipient Understood Notice: Yes Recipient Signature: Yes Med Rec Note Co-signed by Attending: Coverage Notice Comment: Last DP export: 04/30/18 4:54 Patient Name: LAUREN ROSARIO Page 52876 at 1152 All edits/amendments must be made on the electronic document DICTATION DATE: 05/07/18 1151 VETERINARY LIVESTOCK INSPECTOR: ALYSON 05/07/18 1151 RPT#: [id number] DC DATE: STATUS: ADM IN [facility] [address] [place] [address] END OF REPORT
--- NOTE | ~2018-04-28 | MORECARE ---
CASE MANAGEMENT DISCHARGE SUMMARY PATIENT: LAUREN ROSARIO UNIT: [id number] ADM DATE: 04/28/18 AGE: 68 : 48 SEX: M ROOM/BED: D.[facility] AUTHOR: CRYSTAL MICHELLE PHYSICIAN: REFERRING PHYSICIAN: YEIMI GARVIN M.D. DATE OF SERVICE: 04/30/18 Discharge Plan Patient Name: LAUREN ROSARIO Facility: [facility]:[place] : 1950 Planned Disposition: Home Anticipated Discharge Date: Discharge Date: Expected LOS: Initial Reviewer: [email or web address] Initial Review Date: 04/28/2018 Generated: 04/30/18 6:35 pm DCPIA - Discharge Planning Initial Assessment Updated by [id number]: Faith Nuñez on 04/30/18 5:32 pm * Is the patient Alert and Oriented? Yes * How many steps to enter\exit or inside your home? ramp * PCP josef * [facility] * Preadmission Environment Home with Family * ADLs Independent * Equipment None * Verbal permission to speak to the caregivers and representatives has been obtained from the patient. N/A * Community resources currently utilized None * Additional services required to return to the preadmission environment? No * Can the patient safely return to the preadmission environment? Yes * Has this patient been hospitalized within the prior 30 days at any hospital? Yes Patient Name: LAUREN ROSARIO Page 10874 at 1735 All edits/amendments must be made on the electronic document DICTATION DATE: 04/30/181734 HOURLY SHIFT MANAGER: ALYSON 04/30/181734 RPT#: [id number] DC DATE: STATUS: ADM IN [facility] [address] [place] [address] END OF REPORT
--- NOTE | ~2018-04-28 | MORECARE ---
CASE MANAGEMENT DISCHARGE SUMMARY PATIENT: LAUREN ROSARIO UNIT: [id number] ADM DATE: 04/28/18 AGE: 68 : 48 SEX: M ROOM/BED: D.[facility] AUTHOR: MIGUEL ANGEL,CRYSTAL PHYSICIAN: REFERRING PHYSICIAN: YEIMI GARVIN M.D. DATE OF SERVICE: 05/07/18 Discharge Plan Patient Name: LAUREN ROSARIO Facility: [facility] : 1950 Planned Disposition: Inpatient Rehab Anticipated Discharge Date: Discharge Date: Expected LOS: Initial Reviewer: [email or web address] Initial Review Date: 04/28/2018 Generated: 05/07/18 4:48 pm Comments DCP- Discharge Planning Updated by [email or web address]: Faith Nuñez on 05/07/18 2:[address] CM SPOKE WITH GULSHAN WITH [facility]. GULSHAN STATED THAT IF PATIENT IS STABLE THAT THEY COULD ACCEPT PATIENT ON Thursday05/09/18 . STAFF TO CALL FLORENTIN RAMIREZ [phone] ON THURSDAY IF PATIENT IS STABLE FOR [facility]. HAVE HER TO FINISH SCREEN BUT PATIENT HAS ALREADY BEEN APPROVED. SCREEN IS ALMOST COMPLETED SHOULDN'T TAKE LONG FOR TRANSFER ONCE SHE IS CALLED. CM WILL CONTINUE TO FOLLOW AND ASSIST WITH DISCHARGE PLANNING / NEEDS. DCP- Discharge Planning Updated by [id number]: Faith Nuñez on 05/07/18 10:[address] Patient Name: LAUREN ROSARIO Encounter No: [id number] : 1950 Primary Insurance: MEDICARE A & B Anticipated DC Date: Planned Disposition: Inpatient Rehab External Planned Provider: : [facility] Inpatient Rehab DCP follow-up note: Patient and family in agreement with discharge plan. No changes to plan. Case management will follow and assist as needed. Faith Nuñez DCP- Discharge Planning Updated by [id number]: Faith Nuñez on 04/30/18 4:[address] Late Entry 04/30/18 @ 1040 Patient Name: LAUREN ROSARIO Admission Status: Elective Accout number: [id number] Admission Date: 04-28-2018 : 1950 Admission Diagnosis:ISCHEMIC CARDIOMYOPATHY Attending: YEIMI GARVIN Current LOS: 2 Anticipated DC Date: Planned Disposition: Home Primary Insurance: MEDICARE A & B Discharge Planning Comments: CM met with patient spouse Kaleigh this am. Patient currently still on vent at this time. Kaleigh plans on patient returning to their home upon discharge. she denies any discharge needs at this time. CM will continue to follow and assist as needed with discharge planning / needs. Risk Consulting Treasury Director: Faith Nuñez DCPIA - Discharge Planning Initial Assessment Updated by [email or web address]: Faith Nuñez on 04/30/18 5:32 pm * Is the patient Alert and Oriented? Yes * How many steps to enter\exit or inside your home? ramp * PCP josef [facility] * Preadmission Environment Home with Family * ADLs Independent * Equipment None * Verbal permission to speak to the caregivers and representatives has been obtained from the patient. N/A * Community resources currently utilized None * Additional services required to return to the preadmission environment? No * Can the patient safely return to the preadmission environment? Yes * Has this patient been hospitalized within the prior 30 days at any hospital? Yes Coverage Notice Reviewer: [id number] Hood Roy Notice Issued Date-Time: 05/06/2018 14:47 Notice Type: IM Discharge Notice Notice Delivered To: Patient Relationship to Patient: Self Prepress Technician Name: Delivery Method: HAND - Hand Delivered Gladis Days: Prior Verbal Notification: Recipient Understood Notice: Yes Recipient Signature: Yes Med Rec Note Co-signed by Attending: Coverage Notice Comment: Last DP export: 05/07/18 10:52 a Patient Name: LAUREN ROSARIO Page [phone] at 1549 All edits/amendments must be made on the electronic document DICTATION DATE: 05/07/18 1548 EGG CRATER: ALYSON 05/07/18 1548 RPT#: [id number] DC DATE: STATUS: ADM IN [facility] [address] [place] [address] END OF REPORT
--- NOTE | ~2018-04-28 | MORECARE ---
CASE MANAGEMENT DISCHARGE SUMMARY PATIENT: LAUREN ROSARIO UNIT: [id number] ADM DATE: 04/28/18 AGE: 68 : 48 SEX: M ROOM/BED: D.03 AUTHOR: MIGUEL ANGEL,DOC PHYSICIAN: REFERRING PHYSICIAN: YEIMI GARVIN M.D. DATE OF SERVICE: 04/30/18 Discharge Plan Patient Name: LAUREN ROSARIO Facility: [facility]:[place] : 1950 Planned Disposition: Home Anticipated Discharge Date: Discharge Date: Expected LOS: Initial Reviewer: [email or web address] Initial Review Date: 04/28/2018 Generated: 04/30/18 6:53 pm Comments DCP- Discharge Planning Updated by [id number]: Faith Nuñez on 04/30/18 4:[address] Late Entry 04/30/18 @ 1040 Patient Name: LAUREN ROSARIO Admission Status: Elective Accout number: [id number] Admission Date: 04-28-2018 : 1950 Admission Diagnosis:ISCHEMIC CARDIOMYOPATHY Attending: YEIMI GARVIN Current LOS: 2 Anticipated DC Date: Planned Disposition: Home Primary Insurance: MEDICARE A & B Discharge Planning Comments: CM met with patient spouse Kaleigh this am. Patient currently still on vent at this time. Kaleigh plans on patient returning to their home upon discharge. she denies any discharge needs at this time. CM will continue to follow and assist as needed with discharge planning / needs. Electric Spot Welder: Faith Nuñez DCPIA - Discharge Planning Initial Assessment Updated by [email or web address]: Faith Nuñez on 04/30/18 5:32 pm * Is the patient Alert and Oriented? Yes * How many steps to enter\exit or inside your home? ramp * PCP josef * [facility] * Preadmission Environment Home with Family * ADLs Independent * Equipment None * Verbal permission to speak to the caregivers and representatives has been obtained from the patient. N/A * Community resources currently utilized None * Additional services required to return to the preadmission environment? No * Can the patient safely return to the preadmission environment? Yes * Has this patient been hospitalized within the prior 30 days at any hospital? Yes Last DP export: 04/30/18 4:35 Patient Name: LAUREN ROSARIO Page [phone] at 1754 All edits/amendments must be made on the electronic document DICTATION DATE: 04/30/181752 ATMOSPHERIC PHYSICIST: ALYSON 04/30/181752 RPT#: [id number] DC DATE: STATUS: ADM IN [facility] [address] [place] [address] END OF REPORT
--- NOTE | ~2018-04-28 | OP ---
PATIENT NAME: LAUREN ROSARIO MEDICAL RECORD: [id number] :[birth year] LOCATION:DKENNY D.CV03 ADMISSION DATE:04/28/18 SURGEON: АЛЕКСАНДР HILLS MD DATE OF OPERATION: 04/29/2018 SURGEON: Александр Hills MD FREEZER UNLOADER: MURIEL Serna MD and JULIA Crenshaw OPERATION PERFORMED: Coronary artery bypass graft times 2 (left internal mammary artery to LAD, reverse saphenous vein graft from aorta to obtuse marginal); endoscopic saphenous vein harvest. PREOPERATIVE DIAGNOSES: Coronary artery disease and ischemic cardiomyopathy. POSTOPERATIVE DIAGNOSES: Coronary artery disease and ischemic cardiomyopathy. ANESTHESIA: General endotracheal anesthesia. ESTIMATED BLOOD LOSS: Total cardiopulmonary bypass with Cell Saver retransfusion. COMPLICATIONS: None. SPECIMENS: None. CONDITION: Stable. DISPOSITION: CV ICU. OPERATIVE FINDINGS: 1. Transesophageal echocardiography revealed moderately dilated cardiomyopathy with ejection fraction improved to 40%, mild to trace mitral regurgitation and moderate aortic insufficiency with vena contracta 0.6 cm. The aortic insufficiency was significantly diminished after separation from cardiopulmonary bypass with the width of the vena reduced to 0.3 cm, and improved left ventricular contractility on dobutamine and low dose epinephrine. 2. Good quality greater saphenous vein. 3. Good quality left internal mammary artery to LAD, was a severely diseased 1.5 mm vessel. Anastomosis between the plaque and the 1.5 mm probe would only pass approximately a centimeter distally all the way to the apex. 4. Obtuse marginal 1.5 mm with severe disease. Anastomosis above the bifurcation as the vessel was quite small below this, but the 1.5 mm probe passed easily through the bifurcation and into the proximal branch. 5. No ghost OM was visualized. 6. The posterior descending artery was severely diseased and was opened between plaque, but a 1.0 mm probe would not pass proximally or distally. Therefore, this vessel was closed. 7. 300 cc of serous right pleural effusion. OPERATIVE INDICATION: Coronary artery disease and ischemic cardiomyopathy with congestive heart failure. OPERATIVE SUMMARY IN DETAIL: The patient was brought to the operating suite. General anesthesia was obtained. The patient was prepped and draped. Greater OPERATIVE REPORT [id number] LAUREN ROSARIO saphenous vein harvested endoscopically from the right lower extremity, side branches were divided with electrocautery. Vessel ligated proximally and distally and removed, side branches were clipped or tied. Leg was later closed in 2 layers. Median sternotomy incision was made. Subcutaneous tissue divided with electrocautery. The sternum was divided with a saw. Left hemisternum was elevated. The left pleural cavity was entered. Left internal mammary artery and vein were taken down as a pedicle graft. Sternal retractor was placed. Pericardium was opened. Heparin was given. The area was cannulated. Dual stage venous cannula was inserted. The internal mammary was clipped distally and made ready for anastomosis. The patient was placed on cardiopulmonary bypass. Sites for distal anastomoses were selected. Retrograde cardioplegia cannula was inserted. Antegrade cardioplegic cannula was inserted. The patient was cooled. Crossclamp was placed. Cardioplegia given antegrade, but due to aortic insufficiency, left ventricular dilation ensued and therefore the remainder of the cardioplegia was given retrograde except on the completed vein graft. Distal anastomoses were performed in standard technique. Proximal anastomosis with single cross-clamp technique. Aortic root de-aired by removing the clamp, tying the proximal anastomosis, deairing the vein graft, restoring flow. The patient resumed spontaneous rhythm. Proximal and distal anastomotic sites inspected for bleeding. Single suture in the proximal anastomoses. Atrial and ventricular pacing wires were placed. The patient was fully rewarmed, weaned from cardiopulmonary artery bypass and was stable. The patient was decannulated. Retrograde site and the aortic cannula sites were oversewn. Protamine was given. Thorough irrigation was undertaken. Hemostasis was assured. Left chest was evacuated and irrigated. Drains were placed in the mediastinum and both pleural cavities. The pericardial fat was loosely reapproximated. The internal mammary harvest site was made hemostatic. The sternum was closed with wires. Fascia was closed. Subcutaneous tissue was closed. Skin was closed. Dermabond was placed. The needle and sponge counts were reported as correct and the patient was taken to the ICU in stable condition. TRANSINT:[id number] Voice Confirmation ID: [id number] DOCUMENT ID: [id number] АЛЕКСАНДР HILLS MD at 0906 CC: YEIMI GARVIN M.D. and JOSE J DE LOS SANTOS MD [id number] DICTATION DATE: 04/29/18 1605 SAND CONTROL WORKER: 04/30/18 0009 ADM IN [place] [id number] [place], [place] [id number]
--- NOTE | ~2018-04-28 | MORECARE ---
CASE MANAGEMENT DISCHARGE SUMMARY PATIENT: LAUREN ROSARIO UNIT: [id number] ADM DATE: 04/28/18 AGE: 68 : [birth year] SEX: M ROOM/BED: [facility] AUTHOR: MIGUEL ANGEL,DOC PHYSICIAN: REFERRING PHYSICIAN: YEIMI GARVIN M.D. DATE OF SERVICE: 05/10/18 Discharge Plan Patient Name: LAUREN ROSARIO Facility: [facility]:[place] : 1950 Planned Disposition: Inpatient Rehab Anticipated Discharge Date: Discharge Date: 05/09/2018 Expected LOS: Initial Reviewer: [email or web address] Initial Review Date: 04/28/2018 Generated: 05/10/18 10:04 am Comments DCP- Discharge Planning Updated by [id number]: Faith Nuñez on 05/07/18 2:[address] CM SPOKE WITH GULSHAN WITH [facility]. GULSHAN STATED THAT IF PATIENT IS STABLE THAT THEY COULD ACCEPT PATIENT ON Thursday05/09/18 . STAFF TO CALL FLORENTIN RAMIREZ [phone] ON THURSDAY IF PATIENT IS STABLE FOR [facility]. HAVE HER TO FINISH SCREEN BUT PATIENT HAS ALREADY BEEN APPROVED. SCREEN IS ALMOST COMPLETED SHOULDN'T TAKE LONG FOR TRANSFER ONCE SHE IS CALLED. CM WILL CONTINUE TO FOLLOW AND ASSIST WITH DISCHARGE PLANNING / NEEDS. DCP- Discharge Planning Updated by [id number]: Faith Nuñez on 05/07/18 10:[address] Patient Name: LAUREN ROSARIO Encounter No: [id number] : 1950 Primary Insurance: MEDICARE A & B Anticipated DC Date: Planned Disposition: Inpatient Rehab External Planned Provider: : [facility] DCP follow-up note: Patient and family in agreement with discharge plan. No changes to plan. Case management will follow and assist as needed. Faith Nuñez DCP- Discharge Planning Updated by [id number]: Faith Nuñez on 04/30/18 4:[address] Late Entry 04/30/18 @ 1040 Patient Name: LAUREN ROSARIO Admission Status: Elective Accout number: [id number] Admission Date: 04-28-2018 : 1950 Admission Diagnosis:ISCHEMIC CARDIOMYOPATHY Attending: YEIMI GARVIN Current LOS: 2 Anticipated DC Date: Planned Disposition: Home Primary Insurance: MEDICARE A & B Discharge Planning Comments: CM met with patient spouse Kaleigh this am. Patient currently still on vent at this time. Kaleigh plans on patient returning to their home upon discharge. she denies any discharge needs at this time. CM will continue to follow and assist as needed with discharge planning / needs. Welder Manufacture: Faith Nuñez DCPIA - Discharge Planning Initial Assessment Updated by [id number]: Faith Nuñez on 04/30/18 5:32 pm * Is the patient Alert and Oriented? Yes * How many steps to enter\exit or inside your home? ramp * PCP josef * [facility] * Preadmission Environment Home with Family * ADLs Independent * Equipment None * Verbal permission to speak to the caregivers and representatives has been obtained from the patient. N/A * Community resources currently utilized None * Additional services required to return to the preadmission environment? No * Can the patient safely return to the preadmission environment? Yes * Has this patient been hospitalized within the prior 30 days at any hospital? Yes Coverage Notice Reviewer: [id number] Hood Roy Notice Issued Date-Time: 05/06/2018 14:47 Notice Type: IM Discharge Notice Notice Delivered To: Patient Relationship to Patient: Self Credit Interviewer Name: Delivery Method: HAND - Hand Delivered Gladis Days: Prior Verbal Notification: Recipient Understood Notice: Yes Recipient Signature: Yes Med Rec Note Co-signed by Attending: Coverage Notice Comment: Last DP export: 05/07/18 2:48 p Patient Name: LAUREN ROSARIO Page [id number] at 0905 All edits/amendments must be made on the electronic document DICTATION DATE: 05/10/18903 MANUFACTURING PRODUCTION MANAGER: ALYSON 05/10/18903 RPT#: [id number] DC DATE:05/09/18 STATUS: DIS IN [facility] [address] [place] [address] END OF REPORT
--- NOTE | ~2018-04-28 | HEMODYNAMI ---
PATIENT:LAUREN ROSARIO MEDICAL RECORD: [id number] : [birth year] LOCATION:[facility] ADMISSION DATE: 04/28/18 Generatedon:04/28/201813:47 Patient name: LAUREN ROSARIO Patient #: [id number] SSN: D OB: 1950 Date of study: 04/28/2018 Page: Of Hemodynamic Procedure Report Patient Data Patient Demographics Procedure consent was obtained First Name: LAUREN Gender: Male Last Name: ABRAHAM : 1950 Patient #: [id number] Age: 68 year(s) Race: Unknown Additional ID: [id number] Contact details [address]: [address] [place] [address] [address] State: [place] City: [place] Zip code: [address] Past Medical History Allergies: No known allergies Admission Admission Data Admission Date: 04/28/2018 Admission Time: 10:55 Lab Results Lab Result Date: 04/28/2018 Lab Result Time: 0:00 Biochemistry Name Units Result Min Max BUN mg/dl 18 --(---*)-- 7 18 Creatinine mg/dl 1.1 --(--*-)-- 0.6 1.3 CBC Name Units Result Min Max Hemoglobin g/dl 15.2 --(-*--)-- 13.5 17.5 Procedure Procedure Types Cath Procedure Diagnostic Procedure Intra-Aortic Balloon Pump Sedation Charges Moderate Sedation up to 30 minutes Procedure Description Procedure Date Procedure Date: 04/28/2018 Procedure Start Time: 13:08 Procedure End Time: 13:46 Procedure Staff Name Function Fredis Birmingham MD Performing Physician Rm Tomlinson RT Monitor Rosy Carrillo RT Scrub Carrie Buckner RN Nurse Osmin Enriquez RN Weatherization Operations Manager Procedure Data Cath Procedure Fluoroscopy Diagnostic fluoroscopy Total fluoroscopy Time: 2.8 time: 2.8 min min Diagnostic fluoroscopy Total fluoroscopy dose: 70 dose: 70 mGy mGy Contrast Material Contrast Material Type Amount (ml) Isovue 300 0 Entry Location Entry Primary Successful Side Size Upsize Upsize Entry Closure Succes sful Closure Location (Fr) 1 (Fr) 2 (Fr) Remarks Device Remarks Femoral Right 7 Fr Sheath artery Short sutured in place Estimated blood loss: 5 ml Procedure Complications No complications Procedure Medications Medication Administration Route Dosage 0.9% NaCl I.V. 100 ml/hr Oxygen etCO2 Nasal cannula 2 l/min Lidocaine 2% added to field 20 Heparin Flush Bag added to field 2 bags (1000units/500ml NS) Versed I.V. 2 mg Fentanyl I.V. 50 mcg Versed I.V. 2 mg Fentanyl I.V. 50 mcg Fentanyl I.V. 25 mcg Versed I.V. 0.5 mg Heparin Drip I.V. drip 600 units/hr (16127wiadb/250 D5W) Hemodynamics Rest HGB: 15.2 (g/dl) Heart Rate: 57 (bpm) Snapshots Pre Cath Intra NCS Post Cath Vital Signs Time Heart Resp SPO2 etCO2 NIBP Rhythm Pain Sedation Rate (ipm) (%) (mmHg) (mmHg) Status Level (bpm) 12:41:51 67 18 99 35.1 116/65(97) NSR 0 (11) 10(A) , No pain 12:46:03 55 19 100 37 116/67(79) NSR 0 (11) 10(A) , No pain 12:50:19 53 13 100 28 99/59(73) NSR 0 (11) 10(A) , No pain 12:54:31 52 14 100 37.3 93/50(66) NSR 0 (11) 10(A) , No pain 12:58:39 51 13 100 32.1 92/55(65) NSR 0 (11) 10(A) , No pain 13:02:47 51 14 100 26.8 88/54(64) NSR 0 (11) 10(A) , No pain 13:06:53 51 14 100 27.6 85/50(66) NSR 0 (11) 10(A) , No pain 13:10:58 46 13 100 28.4 81/50(59) NSR 0 (11) 10(A) , No pain 13:15:06 50 12 99 19.4 86/41(67) NSR 0 (11) 10(A) , No pain 13:19:12 45 12 100 30.6 88/48(66) NSR 0 (11) 10(A) , No pain 13:23:20 45 13 100 30.6 87/48(60) NSR 0 (11) 10(A) , No pain 13:27:26 44 12 100 29.1 86/49(61) NSR 0 (11) 10(A) , No pain 13:31:34 49 13 100 28.3 84/41(67) NSR 0 (11) 10(A) , No pain 13:35:41 44 12 100 29.8 77/36(44) NSR 0 (11) 10(A) , No pain 13:39:47 49 13 100 32.1 79/38(55) NSR 0 (11) 10(A) , No pain 13:41:15 67 13 100 32.8 77/37(52) NSR 0 (11) 10(A) , No pain 13:46:27 49 12 100 12.6 81/39(63) NSR 0 (11) 10(A) , No pain Medications Time Medication Route Dose Verified Delivered Reason No glen Effectiveness by by 12:29:17 0.9% NaCl I.V. 100 Fredis Carrie used for ml/hr Vinnie Buckner transportation department head 12:29:23 Oxygen etCO2 2 l/min Fredis Carrie used for Nasal Vinnie Buckner procedure cannula RN 12:29:29 Lidocaine 2% added 20ml Fredis Fredis for local to vial Vinnie Birmingham MD anesthetic field 12:29:34 Heparin Flush added 2 bags Fredis Fredis used for Bag to Vinnie Birmingham MD procedure (1000units/500ml field NS) 13:02:04 Versed I.V. 2 mg Fredis Carrie for sedation Vinnie Buckner RN 13:02:13 Fentanyl I.V. 50 mcg Fredis Carrie for sedation Vinnie Buckner RN 13:10:10 Versed I.V. 2 mg Fredis Carrie for sedation Vinnie Buckner RN 13:10:15 Fentanyl I.V. 50 mcg Fredis Carrie for sedation Vinnie Buckner RN 13:25:06 Fentanyl I.V. 25 mcg Fredis Carrie for sedation Vinnie Buckner RN 13:25:10 Versed I.V. 0.5 mg Fredis Carrie for sedation Vinnie Buckner RN 13:34:42 Heparin Drip I.V. 600 Fredis Carrie for ve rified (89772kdvic/250 drip units/hr Vinnie Buckner anticoagulation with Dr. Anderson) DARLENE Birmingham Procedure Log Time Note 12:16:14 Signed procedure consent form obtained from patient. 12:16:15 Diagnostic Cath status Elective 12:20:41 Time tracking: Regular hours (M-F 7:00 - 5:00) 12:20:45 Plan of Care:Hemodynamics will remain stable., Cardiac rhythm will remain stable., Comfort level will be maintained., Respiratory function will remain adequate., Patient/ family verbilizes understanding of procedure., Procedure tolerated without complication., Recovers from procedure without complications.. 12:23:15 Lab Result : Creatinine 1.1 mg/dl 12:23:15 Lab Result : BUN 18 mg/dl 12:23:15 Lab Result : Hemoglobin 15.2 g/dl 12:24:00 H&P Date Dictated: 04/28/2018 Within 30 days and on chart.. 12:29:17 0.9% NaCl 100 ml/hr I.V. was administered by Carrie Buckner RN; used for procedure; 12:29:23 Oxygen 2 l/min etCO2 Nasal cannula was administered by Carrie Buckner RN; used for procedure; 12:29:29 Lidocaine 2% 20ml vial added to field was administered by Fredis Birmingham MD; for local anesthetic; 12:29:34 Heparin Flush Bag (1000units/500ml NS) 2 bags added to field was administered by Fredis Birmingham MD; used for procedure; 12:30:44 Osmin Enriquez RN sent for patient. Start room use. 12:35:59 Patient received from Pre/Post Procedure Room to CCL 1 Alert and oriented. Tansferred to table in Supine position. 12:36:01 Warm blankets applied, and silvia hugger turned on for patient comfort. 12:36:01 Correct patient and procedure confirmed by team. 12:36:02 ECG and BP/O2 sat monitors applied to patient. 12:40:36 Vital chart was started 12:59:53 Baseline sample Acquired. 12:59:58 Rhythm: sinus rhythm 12:59:59 Full Disclosure recording started 13:00:00 Pre-procedure instructions explained to patient. 13:00:01 Pre-op teaching completed and patient verbalized understanding. 13:00:02 Family in waiting room. 13:00:05 Patient NPO since Midnight. 13:00:11 Patient allergic to No known allergies 13:00:13 Is the patient allergic to Iodine/contrast media? No. 13:00:19 Is patient on blood thinner?No 13:00:20 Patient diabetic? No. 13:00:23 Previous problem with sedation/anesthesia? No ? 13:00:24 Snore? No 13:00:25 Sleep apnea? No 13:00:25 Deviated septum? No 13:00:26 Opens mouth fully? Yes 13:00:27 Sticks out tongue? Yes 13:00:28 Airway obstruction? No ? 13:00:31 Dentures? No ? 13:00:33 Pre procedure: right dorsailis pedis pulse 2+ Normal; easily identifiable; not easily obliterated 13:00:35 Patient pain scale 0/10 ?. 13:00:41 IV patent on arrival in left forearm with 0.9% NaCl at [facility]. 13:00:42 Lab results completed and on chart. 13:00:44 Right groin area was prepped with chlora-prep and draped in sterile fashion 13:00:45 Alarms reviewed by R. N. 13:00:45 Sharps counted by scrub and verified by R.N. 13:00:49 ACIST Syringe (43432) opened to sterile field. 13:00:50 Bag Decanter (2002S) opened to sterile field. 13:00:52 ACIST Hand Control (63178) opened to sterile field. 13:00:52 ACIST Manifold (63464) opened to sterile field. 13:00:54 Medline Cath Pack ([id number]) opened to sterile field. 13:00:58 Tegaderm 4 x 4 (1626W) opened to sterile field. 13:01:39 IABP 40cm balloon catheter ([id number]) opened to sterile field. 13:01:49 Physician arrived 13:01:49 --------ALL STOP TIME OUT------ 13:01:50 Final Timeout: patient, procedure, and site verified with staff and physician. All members of the team are in agreement. 13:01:51 Right groin site verified by team. 13:01:53 Physical assessment completed. ASA score P 3 - A patient with severe systemic disease as per Fredis Birmingham MD. 13:01:56 Sedation plan: IV Moderate Sedation Medication:Versed, Fentanyl 13:02:04 Versed 2 mg I.V. was administered by Carrie Buckner RN; for sedation; 13:02:13 Fentanyl 50 mcg I.V. was administered by Carrie Buckner RN; for sedation; 13:08:29 Procedure started. 13:08:32 Local anesthetic to right femoral artery with Lidocaine 2% by Fredis Birmingham MD.INITIAL ACCESS ONLY 13:08:44 A 7 Fr Short sheath was inserted into the Right Femoral artery 13:10:10 Versed 2 mg I.V. was administered by Carrie Buckner RN; for sedation; 13:10:15 Fentanyl 50 mcg I.V. was administered by Carrie Buckner RN; for sedation; 13:10:21 SHEATH 7FR [place] (LHY375) opened to sterile field. 13:11:24 Zero performed for pressure channel P1 13:14:11 DIAGNOSTIC WIRE .035 260cm J wire (582684) opened to sterile field. 13:15:04 40cc IABP inserted into the RFA . 13:20:44 40cc IABP removed. 13:20:48 IABP 40cm balloon catheter ([id number]) opened to sterile field. 13:23:38 40cc IABP inserted into the RFA . 13:25:06 Fentanyl 25 mcg I.V. was administered by Carrie Buckner RN; for sedation; 13:25:10 Versed 0.5 mg I.V. was administered by Carrie Buckner RN; for sedation; 13:31:45 Augmentation: 1:1 per physician. 13:31:46 Trigger: Pressure 13:32:07 Sheath removed intact; hemostasis achieved with Sheath sutured in place to the Right Femoral artery. 13:34:42 Heparin Drip (81276qemxf/250 D5W) 600 units/hr I.V. drip was administered by Carrie Buckner RN; for anticoagulation; verified with Dr. Birmingham 13:35:[address]. 13:36:04 Procedure ended.(Physican Out) 13:36:49 Fluoroscopy time 02.80 minutes. 13:36:53 Flurop Dose total: 70 13:36:53 Fluoroscopy dose: 70 mGy 13:37:12 Contrast amount:Isovue 300 0ml. 13:37:27 Sharps counted by scrub and verified by R.N. 13:37:33 Insertion/operative site no bleeding no hematoma. 13:37:57 Post-op/insertion site Right Femoral artery dressed using a 4 x 4 and Tegaderm. 13:43:16 Post right femoral artery:stable, soft, clean and dry 13:43:17 Post Procedure Pulses reassessed and unchanged 13:43:26 Post-procedure physical assessment completed. ASA score P 3 - A patient with severe systemic disease as per Fredis Birmingham MD. 13:43:46 Post procedure rhythm: unchanged. 13:43:50 Estimated blood loss: 5 ml 13:43:52 Post procedure instruction explained to patient.Patient verbalizes understanding. 13:43:52 Patient needs reinforcement of post procedure teaching. 13:44:23 Procedure type changed to Cath procedure, Diagnostic procedure, Intra-Aortic Balloon Pump, Sedation Charges, Moderate Sedation up to 30 minutes 13:45:51 Procedure and supply charges have been captured, reviewed, submitted and are correct. 13:45:53 Procedure Complication : No complications 13:45:58 Vital chart was stopped 13:45:58 See physician's report for complete and final results. 13:46:00 Report given to CVICU. 13:46:03 Patient transfered to CVICU with Stretcher. 13:46:04 Procedure ended. 13:46:04 Full Disclosure recording stopped 13:46:07 End room use (Document Last) Device Usage Item Name Manufacture Quantity Catalog Number [facility] Minimal Lot# / Charge Number Stock Stock Serial# Code ACIST Syringe Acist 1 [id number] [id number] [id number] [id number] 20 (21531) [employer] Bag Decanter Microtek 1 [id number] 88635 [id number] 5 () Medical Inc. ACIST Hand Acist 1 69492 406557 322892 276178 5 Control (97642) [employer] ACIST Manifold Acist 1 27273 029137 993586 261656 5 (51911) [employer] Medline Cath Medline 1 [id number] 120358 12539 135314 5 Pack ([id number]) Tegaderm 4 x 4 3M 1 1626W 953820 088455 898079 5 (1626W) IABP 40cm [facility] 2 [id number] 915720 814243 474695 1 balloon [facility] catheter (913117) ([id number]) DIAGNOSTIC WIRE [employer] 1 426293 881597 748062 258537 30 .035 260cm J wire (809666) SHEATH 7FR Terumo 1 [id number] 162927 999461 658989 5 Dalzell ([id number]) Signature Audit [place] Time Signature Unsigned Intra-Procedure 04/28/2018 Rm Tomlinson 1:46:57 PM RT(R) Signatures Monitor : Rm Tomlinson RT Signature : Date : Time : [address] [place] [address]
[2018-04-28 11:48] LABS: BASOPHILS 0.6 % (0-2); HEMATOCRIT 44.8 % (42.0-54.0); HEMOGLOBIN 15.2 g/dL (13.5-17.5); IMMATURE GRANULOCYTES 0.1 % (0-5); LYMPHOCYTES 10.1 % (15-50); MCH 31.9 pg (26.0-34.0); MCHC 33.9 g/dL (31.0-37.0); MCV 94.1 fL (80.0-100.0); MEAN PLATELET VOLUME 11.3 fL (7.4-10.4); MONOCYTES 6.6 % (2-11); NEUTROPHILS 80.6 % (40-80); PLATELET COUNT 130 10x3/uL (130-400); RBC 4.76 10x6/uL (4.20-6.10); RDW 14.9 % (11.5-14.5); WBC 6.9 10x3/uL (4.8-10.8)
[2018-04-28 12:00] LABS: ANION GAP 11.5 mmol/L (8-16); CALCIUM 9.5 mg/dL (8.5-10.1); CARBON DIOXIDE 30.3 mmol/L (21.0-32.0); CREATININE - SERUM 1.1 mg/dL (0.6-1.3); POTASSIUM - SERUM 3.8 mmol/L (3.5-5.1)
[2018-04-28 16:01] LABS: BASOPHILS 0.6 % (0-2); EOSINOPHILS 2.1 % (0-7); HEMATOCRIT 41.1 % (42.0-54.0); HEMOGLOBIN 13.7 g/dL (13.5-17.5); IMMATURE GRANULOCYTES 0.2 % (0-5); LYMPHOCYTES 15.4 % (15-50); MCH 31.2 pg (26.0-34.0); MCHC 33.3 g/dL (31.0-37.0); MCV 93.6 fL (80.0-100.0); MEAN PLATELET VOLUME 11.7 fL (7.4-10.4); MONOCYTES 8.3 % (2-11); NEUTROPHILS 73.4 % (40-80); PLATELET COUNT 116 10x3/uL (130-400); RBC 4.39 10x6/uL (4.20-6.10); RDW 14.8 % (11.5-14.5); WBC 4.8 10x3/uL (4.8-10.8)
[2018-04-28 16:19] LABS: ALBUMIN 3.4 g/dL (3.4-5.0); ANION GAP 9.4 mmol/L (8-16); BILIRUBIN - TOTAL 0.77 mg/dL (0.2-1.3); CALCIUM 8.9 mg/dL (8.5-10.1); CREATININE - SERUM 1.1 mg/dL (0.6-1.3); PHOSPHOROUS 3.3 mg/dL (2.5-4.9); T4 THYROXIN - FREE 1.08 ng/dL (0.76-1.46); THYROID STIMULATING HORMONE 0.63 uIU/mL (0.36-3.74); URIC ACID 2.9 mg/dL (2.6-7.2)
[2018-04-28 16:23] LABS: POTASSIUM - SERUM 4.4 mmol/L (3.5-5.1)
[2018-04-28 16:27] LABS: APTT 36.8 SECONDS (22.8-39.4); INR 1.25 (0.85-1.17); PROTIME 15.1 SECONDS (11.6-15.0)
[2018-04-29] VITALS (70 sets, daily range): BP systolic 92–119; BP diastolic 42–66
[2018-04-29 05:24] LABS: APPEARANCE CLEAR (CLEAR); BILIRUBIN NEGATIVE (NEGATIVE); COLOR YELLOW (YELLOW); GLUCOSE 50 mg/dL (NEGATIVE); KETONE NEGATIVE (NEGATIVE); NITRITE NEGATIVE (NEGATIVE); PROTEIN 2+ mg/dL (NEGATIVE); SPECIFIC GRAVITY 1.025 (1.005-1.020); UROBILINOGEN NORMAL (NORMAL)
[2018-04-29 05:25] LABS: BACTERIA FEW /hpf (NONE SEEN); EPITHELIAL CELLS 0-5 /hpf (0-5); RED CELLS - URINE NONE SEEN /hpf (0-5); WHITE CELLS - URINE 0-5 /hpf (0-5)
[2018-04-30] VITALS (88 sets, daily range): BP systolic 85–115; BP diastolic 43–66; Ht 180.3 cm; Wt 80.0 kg
[2018-04-30 06:32] LABS: ALKALINE PHOSPHATASE 46 U/L (46-116); BILIRUBIN - TOTAL 0.94 mg/dL (0.2-1.3); CALCIUM 7.2 mg/dL (8.5-10.1); CARBON DIOXIDE 26.7 mmol/L (21.0-32.0); CHLORIDE - SERUM 107 mmol/L (98-107); CREATININE - SERUM 0.9 mg/dL (0.6-1.3); POTASSIUM - SERUM 3.8 mmol/L (3.5-5.1); SODIUM 142 mmol/L (136-145); UREA NITROGEN 15 mg/dL (7-18); eGFR NON AFRICAN AMERICAN 89 mL/min (90-120)
[2018-04-30 06:33] LABS: ALBUMIN 2.5 g/dL (3.4-5.0); ALT (SGPT) 9 U/L (10-68); CALC OSMOLALITY 287 mosm/kg (275-300); GLUCOSE 164 mg/dL (74-106); PROTEIN - SERUM 4.4 g/dL (6.4-8.2)
[2018-04-30 07:05] LABS: HEMATOCRIT 35.1 % (42.0-54.0); HEMOGLOBIN 11.9 g/dL (13.5-17.5); MCH 31.2 pg (26.0-34.0); MCHC 33.9 g/dL (31.0-37.0); MCV 91.9 fL (80.0-100.0); MEAN PLATELET VOLUME 11.9 fL (7.4-10.4); RBC 3.82 10x6/uL (4.20-6.10)
[2018-04-30 07:06] LABS: WBC 12.3 10x3/uL (4.8-10.8)
[2018-05-01] VITALS (71 sets, daily range): BP systolic 82–111; BP diastolic 23–64
[2018-05-01 06:15] LABS: HEMATOCRIT 31.5 % (42.0-54.0); HEMOGLOBIN 10.7 g/dL (13.5-17.5); MCH 31.1 pg (26.0-34.0); MCV 91.6 fL (80.0-100.0); MEAN PLATELET VOLUME 11.4 fL (7.4-10.4); RBC 3.44 10x6/uL (4.20-6.10); WBC 17.2 10x3/uL (4.8-10.8)
[2018-05-01 06:38] LABS: ALBUMIN 2.1 g/dL (3.4-5.0); ALKALINE PHOSPHATASE 53 U/L (46-116); ALT (SGPT) 9 U/L (10-68); CALC OSMOLALITY 282 mosm/kg (275-300); CALCIUM 7.3 mg/dL (8.5-10.1); CARBON DIOXIDE 26.2 mmol/L (21.0-32.0); CHLORIDE - SERUM 108 mmol/L (98-107); CREATININE - SERUM 0.9 mg/dL (0.6-1.3); PROTEIN - SERUM 4.4 g/dL (6.4-8.2); SODIUM 141 mmol/L (136-145); UREA NITROGEN 16 mg/dL (7-18); eGFR NON AFRICAN AMERICAN 89 mL/min (90-120)
[2018-05-01 06:46] LABS: GLUCOSE 114 mg/dL (74-106)
[2018-05-02] VITALS (40 sets, daily range): BP systolic 87–118; BP diastolic 39–58
[2018-05-02 06:17] LABS: HEMATOCRIT 26.8 % (42.0-54.0); MCH 30.8 pg (26.0-34.0); MCHC 33.6 g/dL (31.0-37.0); MCV 91.8 fL (80.0-100.0); MEAN PLATELET VOLUME 11.3 fL (7.4-10.4); RBC 2.92 10x6/uL (4.20-6.10)
[2018-05-02 06:27] LABS: WBC 8.3 10x3/uL (4.8-10.8)
[2018-05-02 06:28] LABS: ALBUMIN 1.9 g/dL (3.4-5.0); ALKALINE PHOSPHATASE 51 U/L (46-116); BILIRUBIN - TOTAL 1.11 mg/dL (0.2-1.3); CALCIUM 7.6 mg/dL (8.5-10.1); CARBON DIOXIDE 30.5 mmol/L (21.0-32.0); CHLORIDE - SERUM 108 mmol/L (98-107); CREATININE - SERUM 0.7 mg/dL (0.6-1.3); GLUCOSE 97 mg/dL (74-106); POTASSIUM - SERUM 3.7 mmol/L (3.5-5.1); PROTEIN - SERUM 4.1 g/dL (6.4-8.2); SODIUM 142 mmol/L (136-145); eGFR NON AFRICAN AMERICAN > 90 mL/min (90-120)
[2018-05-02 06:30] LABS: ALT (SGPT) 13 U/L (10-68); CALC OSMOLALITY 286 mosm/kg (275-300); UREA NITROGEN 24 mg/dL (7-18)
[2018-05-03] VITALS (38 sets, daily range): BP systolic 75–119; BP diastolic 39–66
[2018-05-03 06:13] LABS: HEMATOCRIT 25.7 % (42.0-54.0); HEMOGLOBIN 8.6 g/dL (13.5-17.5); MCHC 33.5 g/dL (31.0-37.0); MCV 92.8 fL (80.0-100.0); MEAN PLATELET VOLUME 11.2 fL (7.4-10.4); PLATELET COUNT 73 10x3/uL (130-400); RBC 2.77 10x6/uL (4.20-6.10); RDW 14.8 % (11.5-14.5)
[2018-05-03 06:50] LABS: ALBUMIN 1.9 g/dL (3.4-5.0); ALKALINE PHOSPHATASE 52 U/L (46-116); BILIRUBIN - TOTAL 0.98 mg/dL (0.2-1.3); CALC OSMOLALITY 292 mosm/kg (275-300); CALCIUM 7.6 mg/dL (8.5-10.1); CARBON DIOXIDE 29.9 mmol/L (21.0-32.0); CHLORIDE - SERUM 111 mmol/L (98-107); CREATININE - SERUM 0.8 mg/dL (0.6-1.3); GLUCOSE 95 mg/dL (74-106); PROTEIN - SERUM 4.3 g/dL (6.4-8.2); SODIUM 145 mmol/L (136-145); UREA NITROGEN 25 mg/dL (7-18); eGFR NON AFRICAN AMERICAN > 90 mL/min (90-120)
[2018-05-03 06:52] LABS: ALT (SGPT) 9 U/L (10-68)
[2018-05-03 07:35] LABS: PLATELET ESTIMATE DECREASED
[2018-05-04] VITALS (21 sets, daily range): BP systolic 84–121; BP diastolic 42–74
[2018-05-04 07:00] LABS: HEMATOCRIT 26.3 % (42.0-54.0); HEMOGLOBIN 8.9 g/dL (13.5-17.5); MCH 31.4 pg (26.0-34.0); MCHC 33.8 g/dL (31.0-37.0); MCV 92.9 fL (80.0-100.0); MEAN PLATELET VOLUME 11.6 fL (7.4-10.4); RBC 2.83 10x6/uL (4.20-6.10); RDW 14.7 % (11.5-14.5); WBC 7.1 10x3/uL (4.8-10.8)
[2018-05-04 07:34] LABS: ALKALINE PHOSPHATASE 60 U/L (46-116); BILIRUBIN - TOTAL 0.94 mg/dL (0.2-1.3); CALC OSMOLALITY 292 mosm/kg (275-300); CALCIUM 7.8 mg/dL (8.5-10.1); CARBON DIOXIDE 29.7 mmol/L (21.0-32.0); CHLORIDE - SERUM 109 mmol/L (98-107); CREATININE - SERUM 0.9 mg/dL (0.6-1.3); GLUCOSE 100 mg/dL (74-106); POTASSIUM - SERUM 3.8 mmol/L (3.5-5.1); PROTEIN - SERUM 4.6 g/dL (6.4-8.2); SODIUM 144 mmol/L (136-145); UREA NITROGEN 29 mg/dL (7-18); eGFR NON AFRICAN AMERICAN 89 mL/min (90-120)
[2018-05-04 07:36] LABS: ALT (SGPT) 16 U/L (10-68)
[2018-05-05] VITALS (24 sets, daily range): BP systolic 86–106; BP diastolic 42–61
[2018-05-05 06:57] LABS: HEMATOCRIT 27.9 % (42.0-54.0); HEMOGLOBIN 9.3 g/dL (13.5-17.5); MCH 31.1 pg (26.0-34.0); MCHC 33.3 g/dL (31.0-37.0); MCV 93.3 fL (80.0-100.0); RBC 2.99 10x6/uL (4.20-6.10); RDW 14.8 % (11.5-14.5)
[2018-05-05 06:59] LABS: WBC 5.2 10x3/uL (4.8-10.8)
[2018-05-05 07:16] LABS: ALBUMIN 2.2 g/dL (3.4-5.0); ALKALINE PHOSPHATASE 65 U/L (46-116); ALT (SGPT) 15 U/L (10-68); BILIRUBIN - TOTAL 0.79 mg/dL (0.2-1.3); CALC OSMOLALITY 297 mosm/kg (275-300); CARBON DIOXIDE 28.7 mmol/L (21.0-32.0); CHLORIDE - SERUM 109 mmol/L (98-107); GLUCOSE 100 mg/dL (74-106); PROTEIN - SERUM 4.9 g/dL (6.4-8.2); SODIUM 146 mmol/L (136-145); UREA NITROGEN 31 mg/dL (7-18); eGFR NON AFRICAN AMERICAN 78 mL/min (90-120)
[2018-05-05 07:18] LABS: POTASSIUM - SERUM 4.4 mmol/L (3.5-5.1)
[2018-05-05 22:34] LABS: MAGNESIUM - SERUM 1.6 mg/dL (1.8-2.4); POTASSIUM - SERUM 3.8 mmol/L (3.5-5.1)
[2018-05-06] VITALS (23 sets, daily range): BP systolic 84–124; BP diastolic 39–67
[2018-05-06 05:58] LABS: HEMATOCRIT 31.8 % (42.0-54.0); HEMOGLOBIN 10.5 g/dL (13.5-17.5); MCH 31.3 pg (26.0-34.0); MCV 94.6 fL (80.0-100.0); MEAN PLATELET VOLUME 10.8 fL (7.4-10.4); RBC 3.36 10x6/uL (4.20-6.10); RDW 15.2 % (11.5-14.5)
[2018-05-06 06:01] LABS: WBC 6.8 10x3/uL (4.8-10.8)
[2018-05-06 06:14] LABS: ALBUMIN 2.6 g/dL (3.4-5.0); ANION GAP 14.2 mmol/L (8-16); BILIRUBIN - TOTAL 0.99 mg/dL (0.2-1.3); CALCIUM 8.5 mg/dL (8.5-10.1); CARBON DIOXIDE 30.1 mmol/L (21.0-32.0); CREATININE - SERUM 1.1 mg/dL (0.6-1.3); POTASSIUM - SERUM 4.3 mmol/L (3.5-5.1); PROTEIN - SERUM 5.7 g/dL (6.4-8.2)
[2018-05-07] VITALS (24 sets, daily range): BP systolic 80–115; BP diastolic 40–65
[2018-05-07 05:54] LABS: HEMATOCRIT 28.9 % (42.0-54.0); HEMOGLOBIN 9.5 g/dL (13.5-17.5); MCH 31.1 pg (26.0-34.0); MCHC 32.9 g/dL (31.0-37.0); MCV 94.8 fL (80.0-100.0); MEAN PLATELET VOLUME 10.9 fL (7.4-10.4); RBC 3.05 10x6/uL (4.20-6.10); RDW 15.3 % (11.5-14.5); WBC 6.1 10x3/uL (4.8-10.8)
[2018-05-07 06:22] LABS: ALBUMIN 2.3 g/dL (3.4-5.0); BILIRUBIN - TOTAL 0.8 mg/dL (0.2-1.3); CALCIUM 8.4 mg/dL (8.5-10.1); CARBON DIOXIDE 28.2 mmol/L (21.0-32.0); CREATININE - SERUM 1.2 mg/dL (0.6-1.3)
[2018-05-07 06:24] LABS: ANION GAP 12.2 mmol/L (8-16); POTASSIUM - SERUM 5.4 mmol/L (3.5-5.1)
[2018-05-08] VITALS (23 sets, daily range): BP systolic 85–109; BP diastolic 39–56
[2018-05-08 05:36] LABS: HEMATOCRIT 29.8 % (42.0-54.0); HEMOGLOBIN 9.7 g/dL (13.5-17.5); MCHC 32.6 g/dL (31.0-37.0); MCV 95.2 fL (80.0-100.0); MEAN PLATELET VOLUME 10.4 fL (7.4-10.4); RBC 3.13 10x6/uL (4.20-6.10); RDW 15.7 % (11.5-14.5); WBC 6.8 10x3/uL (4.8-10.8)
[2018-05-08 06:05] LABS: ALBUMIN 2.4 g/dL (3.4-5.0); ALKALINE PHOSPHATASE 63 U/L (46-116); BILIRUBIN - TOTAL 0.83 mg/dL (0.2-1.3); CALC OSMOLALITY 291 mosm/kg (275-300); CALCIUM 8.5 mg/dL (8.5-10.1); CARBON DIOXIDE 27.7 mmol/L (21.0-32.0); CHLORIDE - SERUM 108 mmol/L (98-107); GLUCOSE 85 mg/dL (74-106); POTASSIUM - SERUM 4.7 mmol/L (3.5-5.1); PROTEIN - SERUM 5.1 g/dL (6.4-8.2); SODIUM 144 mmol/L (136-145); UREA NITROGEN 28 mg/dL (7-18); eGFR NON AFRICAN AMERICAN 78 mL/min (90-120)
[2018-05-08 06:22] LABS: ALT (SGPT) 13 U/L (10-68)
[2018-05-09] VITALS (12 sets, daily range): BP systolic 83–106; BP diastolic 42–68
[2018-05-09 06:07] LABS: HEMATOCRIT 29.2 % (42.0-54.0); HEMOGLOBIN 9.6 g/dL (13.5-17.5); MCH 31.2 pg (26.0-34.0); MCHC 32.9 g/dL (31.0-37.0); MCV 94.8 fL (80.0-100.0); MEAN PLATELET VOLUME 10.5 fL (7.4-10.4); RBC 3.08 10x6/uL (4.20-6.10); RDW 15.9 % (11.5-14.5); WBC 8.3 10x3/uL (4.8-10.8)
[2018-05-09 06:35] LABS: ALBUMIN 2.4 g/dL (3.4-5.0); ALKALINE PHOSPHATASE 58 U/L (46-116); ALT (SGPT) 11 U/L (10-68); BILIRUBIN - TOTAL 0.76 mg/dL (0.2-1.3); CALC OSMOLALITY 290 mosm/kg (275-300); CALCIUM 7.9 mg/dL (8.5-10.1); CARBON DIOXIDE 27.8 mmol/L (21.0-32.0); CHLORIDE - SERUM 108 mmol/L (98-107); GLUCOSE 93 mg/dL (74-106); POTASSIUM - SERUM 4.4 mmol/L (3.5-5.1); PROTEIN - SERUM 4.9 g/dL (6.4-8.2); SODIUM 143 mmol/L (136-145); UREA NITROGEN 29 mg/dL (7-18); eGFR NON AFRICAN AMERICAN 78 mL/min (90-120)
[2018-05-09] MEDS ORDERED: ELIQUIS2.5 MG PO (12:21)
[2018-05-09] MEDS ORDERED: AMIODARONE HCL200 MG PO (12:22)
== END 2018-05-09 15:20 | DRG 236 ==
LOC: D.CATH 10:55 → D.CVICU 10:55 → D.CATH 13:00 → D.CVICU 14:19 → D.CATH 16:09 → D.CVICU 16:10
PROVIDERS: Internal Medicine Cardiovascular Disease; Thoracic Surgery (Cardiothoracic Vascular Surgery)
PROC: 5A02210 Assistance with Cardiac Output using Balloon Pump, Continuous (ICD-10-PCS; principal; 2018-04-28 13:00)
PROC: 02100Z9 Bypass Coronary Artery, One Artery from Left Internal Mammary, Open Approach (ICD-10-PCS; 2018-04-29)
PROC: 021009W Bypass Coronary Artery, One Artery from Aorta with Autologous Venous Tissue, Open Approach (ICD-10-PCS; 2018-04-29)
PROC: 06BP4ZZ Excision of Right Saphenous Vein, Percutaneous Endoscopic Approach (ICD-10-PCS; 2018-04-29)
PROC: 5A1221Z Performance of Cardiac Output, Continuous (ICD-10-PCS; 2018-04-29)
PROC: B24BZZ4 Ultrasonography of Heart with Aorta, Transesophageal (ICD-10-PCS; 2018-04-29)
DX: I25.5 Ischemic cardiomyopathy (principal); G72.81 Critical illness myopathy; J90 Pleural effusion, not elsewhere classified; E78.5 Hyperlipidemia, unspecified; I25.10 Atherosclerotic heart disease of native coronary artery without angina pectoris; I48.91 Unspecified atrial fibrillation; D69.6 Thrombocytopenia, unspecified; K22.0 Achalasia of cardia; Z86.73 Personal history of transient ischemic attack (TIA), and cerebral infarction without residual deficits; I50.9 Heart failure, unspecified; I11.0 Hypertensive heart disease with heart failure

== ENCOUNTER 2018-05-07 14:57 | Inpatient (IN) | payer MEDICARE, OTHER ==
[~2018-05-07] VITALS: Ht 180.3 cm; Wt 79.4 kg
--- NOTE | ~2018-05-07 | EC ---
PATIENT:LAUREN ROSARIO DATE OF SERVICE: SEX: M MEDICAL RECORD: [id number] DATE OF : [birth year] [facility] AGE OF PATIENT: 68 ADMISSION DATE: 05/09/18 REFERRING PHYSICIAN: INTERPRETING PHYSICIAN: EDIS ABEL MD ECHOCARDIOGRAM REPORT ECHO CHARGES Date: CLINICAL DIAGNOSIS: ECHOCARDIOGRAPHIC MEASUREMENTS (adult normal given) AC root (d.<3.7cm) cm LV Septum d (<1.2 cm> cm Valve Excursion cm LV Septum (systole) cm Left Atria (s.<4.0cm> cm LVPW d(<1.2cm) cm RV (d.<2.3cm) cm LVPW (sytole) cm LV diastole(<5.6CM) cm MV E-F(>70mm/sec) cm LV systole cm LVOT Diameter cm MV exc.(>10mm) cm Est.ejection fraction (50-75%) % DOPPLER: LVIT cm/sec A cm/sec E cm/sec LA cm/sec RVSP mmHg LVOT cm/sec AOP1/2T m/s Asc. Ao cm/sec RVOT cm/sec RA cm/sec PA cm/sec AV Gradient Peak mmHg AV Mean mmHg AV Area cm MV Gradient Peak mmHg MV Mean mmHg MV Area cm COMMENTS: Research Nutritionist: Medical Laboratory Technician: YVON# Pericardial Effusion DATE OF SERVICE: 05/07/2018 PROCEDURE: Echocardiogram. FINDINGS: 1. Left ventricular chamber size is within normal limits. Left ventricular systolic function is mildly depressed. Overall ejection fraction in the 45% range. 2. Left atrium, right atrium, and right ventricle chamber sizes are within normal limits. ECHOCARDIOGRAM REPORT [id number] LAUREN ROSARIO 3. Valvular structures have normal structure and motion. 4. Doppler interrogation reveals only mild mitral regurgitation, no other valvular insufficiency or stenosis. 5. No evidence of pericardial effusion or left ventricular thrombus. TRANSINT:[id number] Voice Confirmation ID: [id number] DOCUMENT ID: [id number] EDIS ABEL MD at 1108 CC: [id number] DICTATION DATE: 05/07/18 1610 HEPATOLOGY PHYSICIAN: 05/08/18 0016 [place] [address]
--- NOTE | ~2018-05-07 | RHP ---
PATIENT: LAUREN ROSARIO MEDICAL RECORD: [id number] ACCOUNT: [id number] LOCATION:[facility] : 46 ADMISSION DATE: 05/09/18 REHABILITATION HISTORY AND PHYSICAL EXAMINATION POST ADMISSION PHYSICIAN EXAMINATION DATE OF ADMISSION: 05/09/2018 ADMITTING DIAGNOSIS: Critical illness myopathy. 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 He was recently in April admitted with symptoms of congestive heart failure and shortness of breath, underwent cardiac catheterization. He had ischemic cardiomyopathy. He was successfully diuresed. He saw Dr. Wong during the admission, was evaluated for bypass grafting. He was thought to be a suitable candidate, brought back on 04/28/2018 for admission for bypass grafting. He was on a balloon pump, placed 24 hours prior to his bypass grafting. On 04/29/2018, he went to the OR for coronary artery bypass grafting times 2 using his internal mammary artery to his left anterior descending, reverse saphenous vein graft with aorta to obtuse marginal branch. Postop, he was hypotensive, was treated with dopamine. He had uncontrolled atrial fib. This was treated with amiodarone, had moderate thrombocytopenia and developed bilateral pleural effusions. Previously, he was independent with ADLs and mobility without aids. Currently, he is mod to max assist for ADLs and mobility. He has proximal muscle weakness. He has been weaned to 1 liter of O2 per nasal cannula. He has had a normal sinus rhythm. He remains weak and fatigues easily, has poor balance and has high fall risk, these are all barriers to his discharge home at this time, definitely benefit from inpatient rehab to get back to his prior level of functioning. COMORBIDITIES: Include bilateral pleural effusions, thrombocytopenia, anemia, multivessel coronary artery bypass grafting, coronary artery disease, ischemic cardiomyopathy, orthopnea, dyspnea, hyperlipidemia, history of CVA, uncontrolled atrial fib and hypertension. PAST MEDICAL HISTORY: Significant for hypertension, CVA, hyperlipidemia, coronary artery disease, pneumonia, arthritis, and prostate problems. PAST SURGICAL HISTORY: None prior to this event. ALLERGIES: No known drug allergies. CURRENT MEDICATIONS: Include spironolactone 25 mg daily, Lipitor 10 mg daily, allopurinol 300 mg daily, MiraLax 17 grams in 8 ounces of water daily, carvedilol 3.125 mg b.i.d. with meals, Eliquis 2.5 mg b.i.d., amiodarone 200 mg b.i.d. HABITS: No alcohol or tobacco use. FAMILY HISTORY: Noncontributory. SOCIAL HISTORY: The patient hopes to return back home and get back to his prior HISTORY AND PHYSICAL [id number] LAUREN ROSARIO level of functioning. REVIEW OF SYSTEMS: GENERAL: Does complain a little bit of weakness and fatigue. HEENT: Denies cold, cough, or congestion. CARDIOVASCULAR: He denies chest pain. PHYSICAL EXAMINATION: VITAL SIGNS: Stable, afebrile. GENERAL: Elderly gentleman in no acute distress, alert upon exam. HEENT: Normocephalic and atraumatic. Oral mucosa moist. NECK: Supple. No lymphadenopathy. LUNGS: Clear at this time. HEART: Irregular rate and rhythm. ABDOMEN: Benign. EXTREMITIES: No clubbing, cyanosis or edema. NEUROLOGIC: Does have some noted proximal muscle weakness. ADMIT VITAL SIGNS: Stable. His pulse is 56, respirations were 17. His temperature is 97.5, blood pressure 92/49. LABORATORY DATA: His admit lab work showed a white count of 8.9, H&H of 10.4 and 31.6 and platelet count is 208. Sodium 144, potassium is 4.1, BUN and creatinine of 28 and 1.0 and blood sugar is noted to be 85. 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 The patient has potential to make improvement. We instituted the following multidisciplinary therapies include, but not limited to physical, occupational, respiratory, speech, nutritional services, prosthetics and orthotics. Given his complex medical condition and risk for more complications, rehabilitation services cannot be provided at a low level of care such as a skilled nurse facility. PLAN: 1. Admit to [facility] for intensive inpatient therapy to include the following disciplines: A. Physical therapy to improve gait, all transfer skills and bed mobility to a modified independent level. B. Occupational therapy to modified independent level. C. Case management to assist with discharge planning and placement options. D. Nutrition to assist with nutritional needs. E. Rehabilitation nursing to assist in monitoring the patient's underlying medical conditions and to assist with any type of bowel or bladder management. 2. The patient's current medication and medical care will be continued. 3. The patient will be placed on standard fall precautions. 4. The patient's estimated length of stay is approximately 7-10 days. 5. We will discuss the patient during care team staff meeting this week. We will continue on home medications where appropriate and I am going to follow up in the a.m. TRANSINT:[id number] Voice Confirmation ID: [id number] DOCUMENT ID: [id number] 05/17/2018 Edited for jacky FOSTER. HISTORY AND PHYSICAL [id number] LAUREN ROSARIO notes whether there has been none or any medical/functional change since admission: - No change since preadmission screen. KRISTIN attests patient continues to be appropriate for IRF: - Continues to be approrpriate. WILFRIDO GUERRERO MD CC: [id number] DICTATION DATE: 05/10/1833 EQUAL OPPORTUNITY ASSISTANT: 05/10/18917 DIS IN 05/14/18 [id number] [place] [address]
[2018-05-09] MEDS ORDERED: ELIQUIS2.5 MG PO (12:21)
[2018-05-09] MEDS ORDERED: AMIODARONE HCL200 MG PO (12:22)
[2018-05-09 16:07] VITALS: BP 107/46; BMI 24.4
[2018-05-09 17:05] LABS: BASOPHILS 0.3 % (0-2); EOSINOPHILS 1.6 % (0-7); HEMATOCRIT 31.6 % (42.0-54.0); HEMOGLOBIN 10.4 g/dL (13.5-17.5); IMMATURE GRANULOCYTES 0.4 % (0-5); LYMPHOCYTES 4.5 % (15-50); MCH 31.4 pg (26.0-34.0); MCHC 32.9 g/dL (31.0-37.0); MCV 95.5 fL (80.0-100.0); MEAN PLATELET VOLUME 10.4 fL (7.4-10.4); MONOCYTES 3.3 % (2-11); NEUTROPHILS 89.9 % (40-80); PLATELET COUNT 208 10x3/uL (130-400); RBC 3.31 10x6/uL (4.20-6.10); RDW 15.9 % (11.5-14.5); WBC 8.9 10x3/uL (4.8-10.8)
[2018-05-09 17:33] LABS: CALC OSMOLALITY 291 mosm/kg (275-300); CALCIUM 8.1 mg/dL (8.5-10.1); CARBON DIOXIDE 27.3 mmol/L (21.0-32.0); CHLORIDE - SERUM 105 mmol/L (98-107); GLUCOSE 85 mg/dL (74-106); POTASSIUM - SERUM 4.1 mmol/L (3.5-5.1); SODIUM 144 mmol/L (136-145); UREA NITROGEN 28 mg/dL (7-18); eGFR NON AFRICAN AMERICAN 78 mL/min (90-120)
[2018-05-09 22:15] VITALS: BP 109/51
[2018-05-10 08:25] VITALS: BP 92/49
[2018-05-10 10:23] VITALS: Ht 180.3 cm; Wt 79.4 kg
[2018-05-10 19:48] VITALS: BP 94/42
[2018-05-11 08:00] VITALS: BP 90/49
[2018-05-11 20:43] VITALS: BP 92/47
[2018-05-12 06:14] LABS: BASOPHILS 1.4 % (0-2); EOSINOPHILS 3.5 % (0-7); HEMATOCRIT 29.1 % (42.0-54.0); HEMOGLOBIN 9.5 g/dL (13.5-17.5); IMMATURE GRANULOCYTES 0.6 % (0-5); LYMPHOCYTES 13.1 % (15-50); MCH 30.9 pg (26.0-34.0); MCHC 32.6 g/dL (31.0-37.0); MCV 94.8 fL (80.0-100.0); MEAN PLATELET VOLUME 10.7 fL (7.4-10.4); MONOCYTES 7.6 % (2-11); NEUTROPHILS 73.8 % (40-80); PLATELET COUNT 200 10x3/uL (130-400); RBC 3.07 10x6/uL (4.20-6.10); RDW 15.8 % (11.5-14.5); WBC 4.9 10x3/uL (4.8-10.8)
[2018-05-12 06:29] LABS: ANION GAP 10.4 mmol/L (8-16); CALCIUM 7.7 mg/dL (8.5-10.1); CARBON DIOXIDE 31.1 mmol/L (21.0-32.0); CREATININE - SERUM 1.1 mg/dL (0.6-1.3); POTASSIUM - SERUM 4.5 mmol/L (3.5-5.1)
[2018-05-12 08:00] VITALS: BP 94/44
[2018-05-12 19:00] VITALS: BP 100/49
[2018-05-13 08:00] VITALS: BP 96/50
[2018-05-14 02:29] VITALS: BP 101/49
[2018-05-14 07:00] LABS: BASOPHILS 0.8 % (0-2); HEMATOCRIT 31.4 % (42.0-54.0); HEMOGLOBIN 10.1 g/dL (13.5-17.5); IMMATURE GRANULOCYTES 0.8 % (0-5); LYMPHOCYTES 12.9 % (15-50); MCH 30.5 pg (26.0-34.0); MCHC 32.2 g/dL (31.0-37.0); MCV 94.9 fL (80.0-100.0); MEAN PLATELET VOLUME 10.5 fL (7.4-10.4); MONOCYTES 9.3 % (2-11); NEUTROPHILS 73.2 % (40-80); PLATELET COUNT 223 10x3/uL (130-400); RBC 3.31 10x6/uL (4.20-6.10); RDW 15.9 % (11.5-14.5)
[2018-05-14 08:00] VITALS: BP 93/49
[2018-05-14 09:51] LABS: CALC OSMOLALITY 291 mosm/kg (275-300); CALCIUM 8.3 mg/dL (8.5-10.1); CARBON DIOXIDE 25.3 mmol/L (21.0-32.0); CHLORIDE - SERUM 108 mmol/L (98-107); GLUCOSE 77 mg/dL (74-106); POTASSIUM - SERUM 4.9 mmol/L (3.5-5.1); SODIUM 145 mmol/L (136-145); UREA NITROGEN 23 mg/dL (7-18); eGFR NON AFRICAN AMERICAN 78 mL/min (90-120)
== END 2018-05-14 11:00 | disposition home health service (06) | DRG 91 ==
LOC: UNDOADMIN 14:57 → D.REHAB 14:57
PROVIDERS: Emergency Medicine
DX: G72.81 Critical illness myopathy (principal); I50.21 Acute systolic (congestive) heart failure; J90 Pleural effusion, not elsewhere classified; Z95.1 Presence of aortocoronary bypass graft; D69.6 Thrombocytopenia, unspecified; D64.9 Anemia, unspecified; I25.5 Ischemic cardiomyopathy; R06.01 Orthopnea; E78.5 Hyperlipidemia, unspecified; I48.91 Unspecified atrial fibrillation; I10 Essential (primary) hypertension; I65.29 Occlusion and stenosis of unspecified carotid artery; I25.10 Atherosclerotic heart disease of native coronary artery without angina pectoris; K21.9 Gastro-esophageal reflux disease without esophagitis

== ENCOUNTER 2018-05-31 13:21 | Inpatient (IN) | payer MEDICARE, OTHER ==
[~2018-05-31] VITALS: Ht 180.3 cm; Wt 75.5 kg
[~2018-05-31 13:21] MED LIST changes: +AMIODARONE HCL200 MG PO; +ELIQUIS2.5 MG PO
[2018-05-31 14:07] VITALS: BP 93/55; BMI 22.9
[2018-05-31 15:42] LABS: BASOPHILS 0.7 % (0-2); EOSINOPHILS 1.8 % (0-7); HEMATOCRIT 36.2 % (42.0-54.0); HEMOGLOBIN 11.7 g/dL (13.5-17.5); IMMATURE GRANULOCYTES 0.2 % (0-5); LYMPHOCYTES 12.5 % (15-50); MCH 30.7 pg (26.0-34.0); MCHC 32.3 g/dL (31.0-37.0); MEAN PLATELET VOLUME 10.8 fL (7.4-10.4); MONOCYTES 6.2 % (2-11); NEUTROPHILS 78.6 % (40-80); RBC 3.81 10x6/uL (4.20-6.10); RDW 15.2 % (11.5-14.5)
[2018-05-31 15:47] LABS: PLATELET COUNT 141 10x3/uL (130-400)
[2018-05-31 16:13] LABS: ANION GAP 14.2 mmol/L (8-16); BILIRUBIN - TOTAL 0.56 mg/dL (0.2-1.3); CALCIUM 8.4 mg/dL (8.5-10.1); CARBON DIOXIDE 25.6 mmol/L (21.0-32.0); CREATININE - SERUM 1.4 mg/dL (0.6-1.3); POTASSIUM - SERUM 4.8 mmol/L (3.5-5.1); PROTEIN - SERUM 5.3 g/dL (6.4-8.2); T4 THYROXIN - FREE 1.06 ng/dL (0.76-1.46); THYROID STIMULATING HORMONE 2.35 uIU/mL (0.36-3.74)
[2018-05-31 19:00] VITALS: BP 112/55
[2018-06-01] VITALS: BP 98/56
[2018-06-01 05:36] VITALS: BP 92/52
[2018-06-01 07:46] VITALS: BP 88/51
[2018-06-01 11:58] VITALS: BP 95/52
--- NOTE | 2018-06-01 14:01 | HP ---
PATIENT: LAUREN ROSARIO MEDICAL RECORD: [id number] ACCOUNT: [id number] LOCATION:[address] : [birth year] ADMISSION DATE: 05/31/18 PCP: JOSE J DE LOS SANTOS MD HISTORY AND PHYSICAL EXAMINATION DATE OF ADMISSION: 05/31/2018 CHIEF COMPLAINT: Syncope. HISTORY: This is a 68-year-old white male who was diagnosed with heart disease. Last month, he underwent 2-vessel CAB[address] Dr. Wong on 04/29/2018. Postoperatively, he developed some atrial fibrillation. His blood pressure remained quite low and has still been low even after he was discharged to inpatient rehab and then home. He came to my office today along with his for syncope and weakness. He has reportedly passed out about 4 times and that started a couple of days ago. He denies any chest pain or shortness of breath, but just has generalized weakness. His blood pressure at times has been 80s over 50s at home. He is admitted for further evaluation and possible adjusting of his medications. PAST MEDICAL AND SURGICAL HISTORY: He was diagnosed last month with coronary artery disease, came back in and had 2-vessel bypass surgery on 04/29/[address] Wong. He has past history of hypertension, hyperlipidemia, gout, and achalasia. 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 PAST SURGICAL HISTORY: Two 2-vessel CABG. DRUG ALLERGIES: None. HOME MEDICATIONS: Include Eliquis 2.5 mg twice a day, amiodarone 200 mg twice a day, atorvastatin 10 mg once a day, carvedilol 3.125 mg twice a day, spironolactone 25 mg once a day, and allopurinol 300 mg once a day. HABITS: Never smoked. No alcohol or drugs. SOCIAL HISTORY: He is . 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 FAMILY HISTORY: No known heart or lung disease. REVIEW OF SYSTEMS: GENERAL: He has lost a lot of weight in the last several weeks. HEENT: No particular sinus or allergy problems. RESPIRATORY: No history of COPD or asthma. CARDIAC: See above history. GASTROINTESTINAL: He has achalasia and occasional heartburn. GENITOURINARY: No significant problems there. MUSCULOSKELETAL: No significant joint aches and pains. NEUROLOGIC: No migraines. He has had stroke that has caused now subtle personality changes. PSYCHIATRIC: Denies depression or melancholia. PHYSICAL EXAMINATION: VITAL SIGNS: Temperature 97.3, pulse 65, respirations 18, blood pressure is HISTORY AND PHYSICAL [id number] LAUREN ROSARIO 93/55, and O2 sat 94%. GENERAL: He does not appear in acute distress. He is awake and alert. SKIN: Warm and dry. HEENT: Grossly within normal limits. NECK: Supple. No bruits. HEART: Regular rate and rhythm without murmur. LUNGS: Clear. ABDOMEN: Soft. EXTREMITIES: No edema. NEUROLOGIC: Intact. ASSESSMENT: 1. Syncopal episodes. 2. Hypotension. 3. Paroxysmal atrial fibrillation. PLAN: Telemetry. Consult cardiology to see about adjusting his medications. His admission lab is all pending at this time. Further recommendations and procedures as warranted. TRANSINT:[id number] Voice Confirmation ID: [id number] DOCUMENT ID: [id number] JOSE J DE LOS SANTOS MD at 1401 CC: [id number] DICTATION DATE: 05/31/18 1441 CQ DEVELOPER: 05/31/18 1512 ADM IN [facility] [id number] [place] [address]
[2018-06-01 15:13] VITALS: BP 111/65
[2018-06-01 21:23] VITALS: BP 108/58
[2018-06-02 00:33] VITALS: BP 107/60
[2018-06-02 06:24] VITALS: BP 106/76
[2018-06-02 07:54] VITALS: BP 112/59
[2018-06-02 11:40] VITALS: BP 88/45
[2018-06-02 13:46] VITALS: Ht 180.3 cm; Wt 75.5 kg
[2018-06-02 15:07] VITALS: BP 101/58
--- NOTE | 2018-06-02 16:49 | MORECARE ---
CASE MANAGEMENT DISCHARGE SUMMARY PATIENT: LAUREN ROSARIO UNIT: [id number] ADM DATE: 05/31/18 AGE: 68 : 48 SEX: M ROOM/BED: D.2134 AUTHOR: CRYSTAL MICHELLE PHYSICIAN: REFERRING PHYSICIAN: JOSE J DE LOS SANTOS MD DATE OF SERVICE: 06/02/18 Discharge Plan Patient Name: LAUREN ROSARIO Facility: [facility]:[place] : 1950 Planned Disposition: Home with Home Health Anticipated Discharge Date: 06/03/18 Discharge Date: Expected LOS: 3 Initial Reviewer: [email or web address] Initial Review Date: 06/02/2018 Generated: 06/02/18 5:49 pm Patient Name: LAUREN ROSARIO Page [id number] at 4089 All edits/amendments must be made on the electronic document DICTATION DATE: 06/02/181648 SENIOR DIRECTOR MARKETING: ALYSON 06/02/181648 RPT#: [id number] DC DATE: STATUS: ADM IN [facility] [address] [place] [address] END OF REPORT
--- NOTE | 2018-06-02 17:04 | MORECARE ---
CASE MANAGEMENT DISCHARGE SUMMARY PATIENT: LAUREN ROSARIO UNIT: [id number] ADM DATE: 05/31/18 AGE: 68 : 48 SEX: M ROOM/BED: D.2134 AUTHOR: CRYSTAL MICHELLE PHYSICIAN: REFERRING PHYSICIAN: JOSE J DE LOS SANTOS MD DATE OF SERVICE: 06/02/18 Discharge Plan Patient Name: LAUREN ROSARIO Facility: [facility]:[place] : 1950 Planned Disposition: Home with Home Health Anticipated Discharge Date: 06/03/18 Discharge Date: Expected LOS: 3 Initial Reviewer: [email or web address] Initial Review Date: 06/02/2018 Generated: 06/02/18 6:04 pm DCPIA - Discharge Planning Initial Assessment Updated by [email or web address]: Mo Howell on 06/02/18 4:59 pm * Is the patient Alert and Oriented? Yes * How many steps to enter\exit or inside your home? 3 / RAMP * PCP DR. DE LOS SANTOS * Pharmacy [facility] * Preadmission Environment Home with Family * ADLs Independent * Equipment Rolling Walker Walker * Other Equipment MEDICAL EQUIPMENT PROVIDER UNKNOWN - POSSIBLY [facility] IN [place] * List name and contact numbers for known caregivers / representatives who currently or will assist patient after discharge: RANDOLPH ROSARIO, SPOUSE, * Verbal permission to speak to the caregivers and representatives has been obtained from the patient. N/A * Community resources currently utilized Home Health * Please name any agencies selected above. [facility] - [facility] * Additional services required to return to the preadmission environment? No * Can the patient safely return to the preadmission environment? Yes * Has this patient been hospitalized within the prior 30 days at any hospital? Yes Coverage Notice Reviewer: [id number] - Mo Howell Notice Issued Date-Time: 06/02/2018 16:40 Notice Type: IM Discharge Notice Notice Delivered To: Patient Relationship to Patient: Repairer Pump Name: Delivery Method: HAND - Hand Delivered Gladis Days: Prior Verbal Notification: Recipient Understood Notice: Yes Recipient Signature: Yes Med Rec Note Co-signed by Attending: Coverage Notice Comment: Last DP export: 06/02/18 3:49 pm Patient Name: LAUREN ROSARIO Page [phone] at 1704 All edits/amendments must be made on the electronic document DICTATION DATE: 06/02/181702 ASPHALT RAKER: ALYSON 06/02/181702 RPT#: [id number] DC DATE: STATUS: ADM IN [facility] [address] [place] [address] END OF REPORT
--- NOTE | 2018-06-02 17:11 | MORECARE ---
CASE MANAGEMENT DISCHARGE SUMMARY PATIENT: LAUREN ROSARIO UNIT: [id number] ADM DATE: 05/31/18 AGE: 68 : 48 SEX: M ROOM/BED: D.9101 AUTHOR: CRYSTAL MICHELLE PHYSICIAN: REFERRING PHYSICIAN: JOSE J DE LOS SANTOS MD DATE OF SERVICE: 06/02/18 Discharge Plan Patient Name: LAUREN ROSAIRO Facility: [facility]:[place] : 1950 Planned Disposition: Home with Home Health Anticipated Discharge Date: 06/03/18 Discharge Date: Expected LOS: 3 Initial Reviewer: [email or web address] Initial Review Date: 06/02/2018 Generated: 06/02/18 6:10 pm Comments DCP- Discharge Planning Updated by [email or web address]: Mo Howlel on 06/02/18 4:[address] Patient Name: LAUREN ROSARIO Admission Status: Elective Accout number: [id number] Admission Date: 05-31-2018 : 1950 Admission Diagnosis: Attending: JOSE J DE LOS SANTOS Current LOS: 2 Anticipated DC Date: 06-03-2018 Planned Disposition: Home with Home Health Primary Insurance: MEDICARE A & B PLANNED EXTERNAL PROVIDER: [facility] Discharge Planning Comments: CM MET WITH PT IN ROOM TO DISCUSS DISCHARGE PLANNING AND NEEDS. PT REPORTS LIVING AT HOME INDEPENDENTLY WITH HIS SPOUSE. PT HAS STANDARD AND THREE WHEELED ROLLING WALKERS AT HOME; PT BELIEVES HE RECEIVED MEDICAL EQUIPMENT FROM [facility], HE IS NOT REALLY SURE. PT REPORTS HAVING INOGEN OXYGEN CONCENTRATOR AT HOME THAT HE DOES NOT USE ANY LONGER HE DOES NOT NEED SINCE HEART SURGERY. PT HAS HOME HEALTH FOR NURSING AND PHYSICAL THERAPY WITH [facility]. CM DISCUSSED AVAILABILITY OF HOME HEALTH, REHAB SERVICES AND MEDICAL EQUIPMENT. PT DENIES DISCHARGE NEEDS AND PLANS TO GO HOME TOMORROW WITH HOME HEALTH RESUMPTION, REPORTS HIS WILL PICK HIM UP FOR DISCHARGE HOME. IMPORTANT MESSAGE FROM MEDICARE PROVIDED AND EXPLAINED. CM CALLED [facility], , SPOKE TO STACEY WHO CONFIRMED PT ACTIVE AND ON HOSPITAL HOLD FOR HOME HEALTH SERVICES. CM FAXED UPDATE TO [facility] AT [phone]. FOR DISCHARGE HOME, FAX DISCHARGE INFORMATION TO [facility] AT [phone], NOTIFMichelet NIELSON OF DISCHARGE FOR HOME HEALTH RESUMPTION AT [phone]. General Maintenance Helper: Mo Howell DCPIA - Discharge Planning Initial Assessment Updated by [email or web address]: Mo Howell on 06/02/18 4:59 pm * Is the patient Alert and Oriented? Yes * How many steps to enter\exit or inside your home? 3 / RAMP * PCP DR. DE LOS SANTOS * [facility] * Preadmission Environment Home with Family * ADLs Independent * Equipment Rolling Walker Walker * Other Equipment MEDICAL EQUIPMENT PROVIDER UNKNOWN - POSSIBLY [facility] IN [place] * List name and contact numbers for known caregivers / representatives who currently or will assist patient after discharge: RANDOLPH ROSARIO, SPOUSE, * Verbal permission to speak to the caregivers and representatives has been obtained from the patient. N/A * Community resources currently utilized Home Health * Please name any agencies selected above. [facility] * Additional services required to return to the preadmission environment? No * Can the patient safely return to the preadmission environment? Yes * Has this patient been hospitalized within the prior 30 days at any hospital? Yes External Providers External Provider: [facility] Next Contact Date: 06/03/2018 Service Request Date: Service Type: Resolution: Reviewer: Comments: Coverage Notice Reviewer: [email or web address] - Mo Howell Notice Issued Date-Time: 06/02/2018 16:40 Notice Type: IM Discharge Notice Notice Delivered To: Patient Relationship to Patient: Telecommunication Equipment Repairer Name: Delivery Method: HAND - Hand Delivered Gladis Days: Prior Verbal Notification: Recipient Understood Notice: Yes Recipient Signature: Yes Med Rec Note Co-signed by Attending: Coverage Notice Comment: Last DP export: 06/02/18 4:04 pm Patient Name: LAUREN ROSARIO Page [phone] at 1711 All edits/amendments must be made on the electronic document DICTATION DATE: 06/02/181709 SERVICE ASSISTANT: ALYSON 06/02/181709 RPT#: [id number] DC DATE: STATUS: ADM IN [facility] [address] [place] [place] [address] END OF REPORT
[2018-06-02 20:46] VITALS: BP 113/56
[2018-06-03 00:03] VITALS: BP 108/62
[2018-06-03 04:17] VITALS: BP 109/52
[2018-06-03 06:18] LABS: BASOPHILS 0.7 % (0-2); EOSINOPHILS 4.4 % (0-7); HEMATOCRIT 33.8 % (42.0-54.0); HEMOGLOBIN 11.1 g/dL (13.5-17.5); IMMATURE GRANULOCYTES 0.2 % (0-5); LYMPHOCYTES 18.1 % (15-50); MCH 30.7 pg (26.0-34.0); MCHC 32.8 g/dL (31.0-37.0); MCV 93.6 fL (80.0-100.0); MONOCYTES 8.7 % (2-11); NEUTROPHILS 67.9 % (40-80); PLATELET COUNT 120 10x3/uL (130-400); RBC 3.61 10x6/uL (4.20-6.10); RDW 15.2 % (11.5-14.5); WBC 4.4 10x3/uL (4.8-10.8)
[2018-06-03 06:34] LABS: ANION GAP 13.2 mmol/L (8-16); CALCIUM 8.1 mg/dL (8.5-10.1); CARBON DIOXIDE 24.9 mmol/L (21.0-32.0); CREATININE - SERUM 1.1 mg/dL (0.6-1.3); POTASSIUM - SERUM 4.1 mmol/L (3.5-5.1)
[2018-06-03] MEDS ORDERED: AMIODARONE HCL200 MG PO (08:09)
[2018-06-03] MEDS ORDERED: FLORINEF 0.1 M0.1 MG PO (08:10)
[2018-06-03 08:25] VITALS: BP 101/52
--- NOTE | 2018-06-03 11:50 | MORECARE ---
CASE MANAGEMENT DISCHARGE SUMMARY PATIENT: LAUREN ROSARIO UNIT: [id number] ADM DATE: 05/31/18 AGE: 68 : 48 SEX: M ROOM/BED: D.9179 AUTHOR: CRYSTAL IMCHELLE PHYSICIAN: REFERRING PHYSICIAN: JOSE J DE LOS SANTOS MD DATE OF SERVICE: 06/03/18 Discharge Plan Patient Name: LAUREN ROSARIO Facility: [facility]:[place] : 1950 Planned Disposition: Home with Home Health Anticipated Discharge Date: 06/03/18 Discharge Date: Expected LOS: 3 Initial Reviewer: [email or web address] Initial Review Date: 06/02/2018 Generated: 06/03/18 12:50 pm Comments DCP- Discharge Planning Updated by [email or web address]: Mo Howell on 06/02/18 4:[address] Patient Name: LAUREN ROSARIO Admission Status: Elective Accout number: [id number] Admission Date: 05-31-2018 : 1950 Admission Diagnosis: Attending: JOSE J DE LOS SANTOS Current LOS: 2 Anticipated DC Date: 06-03-2018 Planned Disposition: Home with Home Health Primary Insurance: MEDICARE A & B PLANNED EXTERNAL PROVIDER: [facility] Discharge Planning Comments: CM MET WITH PT IN ROOM TO DISCUSS DISCHARGE PLANNING AND NEEDS. PT REPORTS LIVING AT HOME INDEPENDENTLY WITH HIS SPOUSE. PT HAS STANDARD AND THREE WHEELED ROLLING WALKERS AT HOME; PT BELIEVES HE RECEIVED MEDICAL EQUIPMENT FROM [facility], HE IS NOT REALLY SURE. PT REPORTS HAVING INOGEN OXYGEN CONCENTRATOR AT HOME THAT HE DOES NOT USE ANY LONGER HE DOES NOT NEED SINCE HEART SURGERY. PT HAS HOME HEALTH FOR NURSING AND PHYSICAL THERAPY WITH [facility]. CM DISCUSSED AVAILABILITY OF HOME HEALTH, REHAB SERVICES AND MEDICAL EQUIPMENT. PT DENIES DISCHARGE NEEDS AND PLANS TO GO HOME TOMORROW WITH HOME HEALTH RESUMPTION, REPORTS HIS WILL PICK HIM UP FOR DISCHARGE HOME. IMPORTANT MESSAGE FROM MEDICARE PROVIDED AND EXPLAINED. CM CALLED [facility], , SPOKE TO STACEY WHO CONFIRMED PT ACTIVE AND ON HOSPITAL HOLD FOR HOME HEALTH SERVICES. CM FAXED UPDATE TO [facility] AT [phone]. FOR DISCHARGE HOME, FAX DISCHARGE INFORMATION TO [facility] AT [phone], NOTIFMichelet NIELSON OF DISCHARGE FOR HOME HEALTH RESUMPTION AT [phone]. Editor In Chief: Mo Howell DCPIA - Discharge Planning Initial Assessment Updated by [id number]: Mo Howell on 06/02/18 4:59 pm * Is the patient Alert and Oriented? Yes * How many steps to enter\exit or inside your home? 3 / RAMP * PCP DR. DE LOS SANTOS * [facility] * Preadmission Environment Home with Family * ADLs Independent * Equipment Rolling Walker Walker * Other Equipment MEDICAL EQUIPMENT PROVIDER UNKNOWN - POSSIBLY [facility] IN [place] * List name and contact numbers for known caregivers / representatives who currently or will assist patient after discharge: RANDOLPH ROSARIO, SPOUSE, * Verbal permission to speak to the caregivers and representatives has been obtained from the patient. N/A * Community resources currently utilized Home Health * Please name any agencies selected above. [facility] * Additional services required to return to the preadmission environment? No * Can the patient safely return to the preadmission environment? Yes * Has this patient been hospitalized within the prior 30 days at any hospital? Yes Coverage Notice Reviewer: [id number] - Mo Howell Notice Issued Date-Time: 06/02/2018 16:40 Notice Type: IM Discharge Notice Notice Delivered To: Patient Relationship to Patient: Capper Machine Operator Name: Delivery Method: HAND - Hand Delivered Gladis Days: Prior Verbal Notification: Recipient Understood Notice: Yes Recipient Signature: Yes Med Rec Note Co-signed by Attending: Coverage Notice Comment: Last DP export: 06/02/18 4:10 pm Patient Name: LAUREN ROSARIO Page 65419 at 1150 All edits/amendments must be made on the electronic document DICTATION DATE: 06/03/18 1150 GOLD NIB GRINDER: ALYSON 06/03/18 1150 RPT#: [id number] DC DATE: STATUS: ADM IN [facility] [address] [facility] [place] [address] END OF REPORT
--- NOTE | 2018-06-03 11:58 | MORECARE ---
CASE MANAGEMENT DISCHARGE SUMMARY PATIENT: LAUREN ROSARIO UNIT: [id number] ADM DATE: 05/31/18 AGE: 68 : 48 SEX: M ROOM/BED: D.2134 AUTHOR: CRYSTAL MICHELLE PHYSICIAN: REFERRING PHYSICIAN: JOSE J DE LOS SANTOS MD DATE OF SERVICE: 06/03/18 Discharge Plan Patient Name: LAUREN ROSARIO Facility: [facility]:[place] : 1950 Planned Disposition: Home with Home Health Anticipated Discharge Date: 06/03/18 Discharge Date: 06/03/2018 Expected LOS: 3 Initial Reviewer: [email or web address] Initial Review Date: 06/02/2018 Generated: 06/03/18 12:58 pm Comments DCP- Discharge Planning Updated by [email or web address]: Mo Howell on 06/03/18 10:[address] Patient Name: LAUREN ROSARIO Encounter No: [id number] : 1950 Primary Insurance: MEDICARE A & B Anticipated DC Date: 06-03-2018 Planned Disposition: Home with Home Health External Planned Provider: [facility] DCP follow-up note: CM RECEIVED DISCHARGE ORDER, FAXED DISCHARGE INFORMATION TO [facility] AT [phone], NOTIFIED [facility]O OF [facility] THAT PT DISCHARGED FOR HOME HEALTH RESUMPTION AT [phone]. Code And Test Clerk: Mo Howell DCP- Discharge Planning Updated by [email or web address]: Mo Howell on 06/02/18 4:[address] Patient Name: LAUREN ROSARIO Admission Status: Elective Accout number: [id number] Admission Date: 05-31-2018 : 1950 Admission Diagnosis: Attending: JOSE J DE LOS SANTOS Current LOS: 2 Anticipated DC Date: 06-03-2018 Planned Disposition: Home with Home Health Primary Insurance: MEDICARE A & B PLANNED EXTERNAL PROVIDER: [facility] Discharge Planning Comments: CM MET WITH PT IN ROOM TO DISCUSS DISCHARGE PLANNING AND NEEDS. PT REPORTS LIVING AT HOME INDEPENDENTLY WITH HIS SPOUSE. PT HAS STANDARD AND THREE WHEELED ROLLING WALKERS AT HOME; PT BELIEVES HE [email or web address], HE IS NOT REALLY SURE. PT REPORTS HAVING INOGEN OXYGEN CONCENTRATOR AT HOME THAT HE DOES NOT USE ANY LONGER HE DOES NOT NEED SINCE HEART SURGERY. PT HAS HOME HEALTH FOR NURSING AND PHYSICAL THERAPY WITH [facility]. CM DISCUSSED AVAILABILITY OF HOME HEALTH, REHAB SERVICES AND MEDICAL EQUIPMENT. PT DENIES DISCHARGE NEEDS AND PLANS TO GO HOME TOMORROW WITH HOME HEALTH RESUMPTION, REPORTS HIS WILL PICK HIM UP FOR DISCHARGE HOME. IMPORTANT MESSAGE FROM MEDICARE PROVIDED AND EXPLAINED. CM CALLED [facility], , SPOKE TO STACEY WHO CONFIRMED PT ACTIVE AND ON HOSPITAL HOLD FOR HOME HEALTH SERVICES. CM FAXED UPDATE TO [facility] AT [phone]. FOR DISCHARGE HOME, FAX DISCHARGE INFORMATION TO [facility] AT [phone], NOTIFY [facility] OF DISCHARGE FOR HOME HEALTH RESUMPTION AT [phone]. Code And Test Clerk: Mo Howell DCPIA - Discharge Planning Initial Assessment Updated by [email or web address]: Mo Howell on 06/02/18 4:59 pm * Is the patient Alert and Oriented? Yes * How many steps to enter\exit or inside your home? 3 / RAMP * PCP DR. DE LOS SANTOS * [facility] * Preadmission Environment Home with Family * ADLs Independent * Equipment Rolling Walker Walker * Other Equipment MEDICAL EQUIPMENT PROVIDER UNKNOWN - POSSIBLY [facility] IN [place] * List name and contact numbers for known caregivers / representatives who currently or will assist patient after discharge: RANDOLPH ROSARIO, SPOUSE, * Verbal permission to speak to the caregivers and representatives has been obtained from the patient. N/A * Community resources currently utilized Home Health * Please name any agencies selected above. [facility] * Additional services required to return to the preadmission environment? No * Can the patient safely return to the preadmission environment? Yes * Has this patient been hospitalized within the prior 30 days at any hospital? Yes Coverage Notice Reviewer: [id number] - Mo Howell Notice Issued Date-Time: 06/02/2018 16:40 Notice Type: IM Discharge Notice Notice Delivered To: Patient Relationship to Patient: Surveying Teacher Name: Delivery Method: HAND - Hand Delivered Gladis Days: Prior Verbal Notification: Recipient Understood Notice: Yes Recipient Signature: Yes Med Rec Note Co-signed by Attending: Coverage Notice Comment: Last DP export: 06/03/18 10:50 am Patient Name: LAUREN ROSARIO Page 74724 at 1158 All edits/amendments must be made on the electronic document DICTATION DATE: 06/03/187 ADOPTION SERVICES MANAGER: ALYSON 06/03/18 1157 RPT#: [id number] DC DATE:06/03/18 STATUS: DIS IN [facility] [address] [place] [address] END OF REPORT
--- NOTE | 2018-06-03 13:57 | EC ---
PATIENT:LAUREN ROSARIO DATE OF SERVICE: 05/31/18 SEX: M MEDICAL RECORD: [id number] DATE OF : [birth year] LOCATION:D.M2 D.213 AGE OF PATIENT: 68 ADMISSION DATE: 05/31/18 REFERRING PHYSICIAN: INTERPRETING PHYSICIAN: MIGUEL MCDERMOTT MD ECHOCARDIOGRAM REPORT ECHO CHARGES 5 ECHO LIMITED Date: 06/01/17 CLINICAL DIAGNOSIS: CHF ECHOCARDIOGRAPHIC MEASUREMENTS (adult normal given) AC root (d.<3.7cm) cm LV Septum d (<1.2 cm> cm Valve Excursion cm LV Septum (systole) cm Left Atria (s.<4.0cm> cm LVPW d(<1.2cm) cm RV (d.<2.3cm) cm LVPW (sytole) cm LV diastole(<5.6CM) cm MV E-F(>70mm/sec) cm LV systole cm LVOT Diameter cm MV exc.(>10mm) cm Est.ejection fraction (50-75%) % DOPPLER: LVIT cm/sec A cm/sec E cm/sec LA cm/sec RVSP 16.0 mmHg LVOT cm/sec AOP1/2T m/s Asc. Ao cm/sec RVOT cm/sec RA cm/sec PA cm/sec AV Gradient Peak mmHg AV Mean mmHg AV Area cm MV Gradient Peak mmHg MV Mean mmHg MV Area cm COMMENTS: Bladder Trimmer: Desi SHAFFER Forestry Hunter: 3 Dr. Verdin TAPE# PACS Pericardial Effusion N DATE OF SERVICE: This is a limited study includes 2D only. Grossly LVH is present. LV internal dimensions are normal. LV appears to be a little mildly sluggish with global hypo and EF within the lower limits of normal to mildly reduced to 45% to 50%. Aortic valve appears tricuspid. Left atrium appears normal. Right-sided chamber size appears grossly normal. No evidence of pericardial effusion. ECHOCARDIOGRAM REPORT [id number] LAUREN ROSARIO TRANSINT:[id number] Voice Confirmation ID: [id number] DOCUMENT ID: [id number] MIGUEL MCDERMOTT MD at 1357 CC: [id number] DICTATION DATE: 06/02/18 0134 CLINICAL ADMISSIONS MANAGER: 06/02/18 0440 DIS IN 06/03/18 [facility] [address] [place] [address]
== END 2018-06-03 11:55 | disposition home health service (06) | DRG 312 ==
LOC: D.M2 13:21
PROVIDERS: ADMIT Family Medicine
DX: I95.2 Hypotension due to drugs (principal); T44.7X5A Adverse effect of beta-adrenoreceptor antagonists, initial encounter; I25.10 Atherosclerotic heart disease of native coronary artery without angina pectoris; Z95.1 Presence of aortocoronary bypass graft; E78.5 Hyperlipidemia, unspecified; M10.9 Gout, unspecified; I48.0 Paroxysmal atrial fibrillation; I25.5 Ischemic cardiomyopathy; E86.0 Dehydration; Z86.73 Personal history of transient ischemic attack (TIA), and cerebral infarction without residual deficits

== ENCOUNTER → 2018-07-13 20:07 | Outpatient (CLI) | payer MEDICARE, OTHER ==
[2018-06-02 13:46] VITALS: BMI 24.5
[~2018-07-13 20:07] MED LIST changes: +ALBUTEROL SULF8.5 GM INH; +DOXYCYCLINE HY100 M2 PO; +FLORINEF 0.1 M0.1 MG PO; +MEDROL DOSE PACK4 MG PO; +POTASSIUM40 MEQ/15 PO
[2018-07-13 20:47] LABS: BASOPHILS 1.2 % (0-2); EOSINOPHILS 2.4 % (0-7); HEMATOCRIT 39.1 % (42.0-54.0); HEMOGLOBIN 12.5 g/dL (13.5-17.5); IMMATURE GRANULOCYTES 0.2 % (0-5); LYMPHOCYTES 13.8 % (15-50); MEAN PLATELET VOLUME 12.7 fL (7.4-10.4); MONOCYTES 8.9 % (2-11); NEUTROPHILS 73.5 % (40-80); RBC 4.03 10x6/uL (4.20-6.10); RDW 17.2 % (11.5-14.5); WBC 5.1 10x3/uL (4.8-10.8)
[2018-07-13 20:51] LABS: PLATELET COUNT 177 10x3/uL (130-400)
[2018-07-13 21:06] LABS: CALCIUM 7.5 mg/dL (8.5-10.1); CREATININE - SERUM 1.2 mg/dL (0.6-1.3)
== END | disposition home or self-care (01) ==
LOC: D.LABREF 20:07
PROVIDERS: Nurse Practitioner Adult Health
DX: I25.10 Atherosclerotic heart disease of native coronary artery without angina pectoris (principal)

== ENCOUNTER 2018-07-18 06:23 | Inpatient (IN) | payer MEDICARE, OTHER ==
[~2018-07-18] VITALS: Ht 180.3 cm; Wt 85.5 kg
[~2018-07-18 06:23] MED LIST changes: -ALBUTEROL SULF8.5 GM INH; -DOXYCYCLINE HY100 M2 PO; -MEDROL DOSE PACK4 MG PO; -POTASSIUM40 MEQ/15 PO
[2018-07-18] MEDS ORDERED: BAYER CHEWABLE81 MG PO (06:34)
--- NOTE | 2018-07-18 07:08 | NUR ---
RECIEVED CARE OF PT, VSS
[2018-07-18 07:14] LABS: APTT 32.6 SECONDS (22.8-39.4); INR 1.37 (0.85-1.17); PROTIME 16.3 SECONDS (11.6-15.0)
[2018-07-18 07:25] LABS: HEMATOCRIT 35.6 % (42.0-54.0); HEMOGLOBIN 12.1 g/dL (13.5-17.5); LYMPHOCYTES 2.5 % (15-50); MCH 32.2 pg (26.0-34.0); MCV 94.7 fL (80.0-100.0); MEAN PLATELET VOLUME 10.8 fL (7.4-10.4); RBC 3.76 10x6/uL (4.20-6.10); RDW 17.3 % (11.5-14.5); WBC 8.9 10x3/uL (4.8-10.8)
[2018-07-18 07:28] LABS: PLATELET COUNT 138 10x3/uL (130-400)
[2018-07-18 07:36] LABS: ALBUMIN 3.1 g/dL (3.4-5.0); ALKALINE PHOSPHATASE 98 U/L (46-116); ALT (SGPT) 14 U/L (10-68); BILIRUBIN - TOTAL 1.45 mg/dL (0.2-1.3); CALC OSMOLALITY 292 mosm/kg (275-300); CALCIUM 7.7 mg/dL (8.5-10.1); CARBON DIOXIDE 28.6 mmol/L (21.0-32.0); CHLORIDE - SERUM 105 mmol/L (98-107); CKMB 0.8 U/L (0.0-3.6); CREATINE KINASE 54 UL (21-232); CREATININE - SERUM 1.4 mg/dL (0.6-1.3); GLUCOSE 111 mg/dL (74-106); PRO BNP 19562 pg/mL (0-125); PROTEIN - SERUM 5.9 g/dL (6.4-8.2); SODIUM 145 mmol/L (136-145); UREA NITROGEN 20 mg/dL (7-18); eGFR NON AFRICAN AMERICAN 53 mL/min (90-120)
[2018-07-18 07:38] LABS: POTASSIUM - SERUM 2.9 mmol/L (3.5-5.1); TROPONIN-I 0.062 ng/mL (0.000-0.060)
--- NOTE | 2018-07-18 07:39 | NUR ---
CRITICAL LABS CALLED BY [facility]. CRITICAL LOW POTASSIUM OF 2.9 AND ELEVATED TROPONIN OF 0.062. READ BACK AND CONFIRMED. NOTIFIED DR. RYDER.
[2018-07-18 07:44] VITALS: BP 123/79
[2018-07-18 08:52] VITALS: BP 117/63
[2018-07-18 09:42] VITALS: BP 117/69
[2018-07-18] MEDS ORDERED: POTASSIUM40 MEQ/15 PO (10:29)
--- NOTE | 2018-07-18 10:30 | NUR ---
PATIENT TO ROOM. ADMITTED AND ASSESSED WITH VS STABLE. IV INTACT. IVF INFUSING. NO COMPLAINTS OR SIGNS OF DISTRESS. O2 ON AT 2 LNC. CALL LIGHT WITHIN REACH.
[2018-07-18 10:34] VITALS: BMI 26.2
--- NOTE | 2018-07-18 13:00 | NUR ---
PATIENT IN BED WITH EYES CLOSED RESTING QUIETLY. IV INTACT. CALL LIGHT WITHIN REACH.
[2018-07-18 13:01] VITALS: Ht 180.3 cm; Wt 85.5 kg
[2018-07-18 13:20] VITALS: BP 115/66
--- NOTE | 2018-07-18 15:45 | NUR ---
PATIENT SITTING UP IN BED WITH IV INTACT. NO COMPLAINTS. FAMILY AT BEDSIDE. CALL LIGHT WITHIN REACH.
--- NOTE | 2018-07-18 16:18 | NUR ---
IV TO LT. F/A INFUSING AT PRESCRIBED RATE WITH SITE INTACT. O2 LITERS N/C. UP WITH SBA. DENIES ANY PAIN OR DISCOMFORT AND ENCOURAGED TO USE CALL LIGHT FOR ASSIST.
--- NOTE | 2018-07-18 16:28 | NUR ---
IV LT. FOREARM INFUSING AT PRESCRIBED RATE. NONPRODUCTIVE COUGH WITH O2 2 LITERS N/C. DENIES ANY SOB AT THIS TIME OR COMPLAINTS. ENCOURAGED TO USE CALL LIGHT FOR ASSIST.
[2018-07-18 17:02] VITALS: BP 123/68
--- NOTE | 2018-07-18 18:15 | NUR ---
PATIENT IN BED WITH NO COMPLAINTS. IV INTACT. URINAL EMPTIED. NO PROBLEMS AT THIS TIME. 02 ON AT 2 LNC. CALL LIGHT WITHIN REACH.
[2018-07-18 19:00] VITALS: BP 112/64
--- NOTE | 2018-07-18 19:30 | NUR ---
RECEIVED REPORT, ASSUMED CARE, DENIES NEEDS, BED LOWEST POSITION, CALL LIGHT IN REACH, IV TO RFA INFUSING, WILL CONTINUE TO MONITOR
[2018-07-19] VITALS: BP 118/68
[2018-07-19 03:00] VITALS: BP 125/58
--- NOTE | 2018-07-19 04:25 | NUR ---
WATCHING TV. NO NEEDS. NO DISTRESS. AGREE WITH STAGE RIGGER'S ASSESSMENT. CONTINUE PLAN OF CARE.
[2018-07-19 05:13] LABS: BASOPHILS 0.5 % (0-2); EOSINOPHILS 1.2 % (0-7); HEMATOCRIT 30.8 % (42.0-54.0); IMMATURE GRANULOCYTES 0.2 % (0-5); MCH 30.8 pg (26.0-34.0); MCHC 32.5 g/dL (31.0-37.0); MCV 94.8 fL (80.0-100.0); MEAN PLATELET VOLUME 10.6 fL (7.4-10.4); MONOCYTES 9.1 % (2-11); RBC 3.25 10x6/uL (4.20-6.10); RDW 16.9 % (11.5-14.5)
[2018-07-19 05:14] LABS: PLATELET COUNT 108 10x3/uL (130-400); WBC 5.7 10x3/uL (4.8-10.8)
[2018-07-19 05:50] LABS: ANION GAP 9.6 mmol/L (8-16); CARBON DIOXIDE 30.2 mmol/L (21.0-32.0); CREATININE - SERUM 1.2 mg/dL (0.6-1.3)
[2018-07-19 05:54] LABS: POTASSIUM - SERUM 2.8 mmol/L (3.5-5.1)
[2018-07-19 08:21] VITALS: BP 117/68
[2018-07-19 12:20] VITALS: BP 115/66
[2018-07-19 16:00] VITALS: BP 125/75
--- NOTE | 2018-07-19 16:57 | NUR ---
RIGHT FOREARM IV INFILTRATED. RESITED WITH 22G TO LEFT HAND. 2 ATTEMPTS. PATIENT TOLERATED WELL.
--- NOTE | 2018-07-19 17:25 | NUR ---
MEDIEVAL ENGLISH LITERATURE PROFESSOR COMPLETE. NO SIGNS OF DISTRESS NOTED. CL IN REACH
[2018-07-19 20:00] VITALS: BP 134/82
--- NOTE | 2018-07-19 22:34 | NUR ---
THE PATIENT APPEARS COMFORTABLE WITH NO QUESTIONS OR CONCERNS AT THIS TIME. IVS AND O2 IN PLACE.
[2018-07-20] VITALS: BP 101/68
--- NOTE | 2018-07-20 01:35 | NUR ---
1930) REC'D. IN BED WATCHING TV.DENIES ANY DISCOMFORT AT PRESENT TIME.WILL CONTINUE TO MONITOR RESP. STATUS AND FOLLOW CURRENT PLAN OF CARE.02 CONTINUES AT 2.5L NC WITH SOME SOB ON MINIMAL ACTIVITY.
[2018-07-20 05:00] VITALS: BP 112/74
[2018-07-20 08:27] VITALS: BP 122/70
[2018-07-20 12:04] VITALS: BP 119/76
[2018-07-20 15:07] VITALS: BP 116/69
[2018-07-20 20:00] VITALS: BP 123/74
--- NOTE | 2018-07-20 22:48 | NUR ---
RESTING IN BED WITH NO NEEDS NO S/S OF DISTRESS RESPRATION EVEN AND UNLABORED CALL LIGHT IN REACH CHECKED OFTEN FOR NEEDS AND SAFETY.
[2018-07-21] VITALS (7 sets, daily range): BP systolic 99–122; BP diastolic 43–76
[2018-07-21 06:05] LABS: BASOPHILS 0.3 % (0-2); EOSINOPHILS 0 % (0-7); HEMATOCRIT 31.6 % (42.0-54.0); HEMOGLOBIN 10.2 g/dL (13.5-17.5); LYMPHOCYTES 4.3 % (15-50); MCH 30.7 pg (26.0-34.0); MCHC 32.3 g/dL (31.0-37.0); MCV 95.2 fL (80.0-100.0); MEAN PLATELET VOLUME 11.5 fL (7.4-10.4); NEUTROPHILS 93.4 % (40-80); PLATELET COUNT 123 10x3/uL (130-400); RBC 3.32 10x6/uL (4.20-6.10); RDW 16.6 % (11.5-14.5)
[2018-07-21 06:27] LABS: ANION GAP 15.8 mmol/L (8-16); CALCIUM 7.7 mg/dL (8.5-10.1); CREATININE - SERUM 1.1 mg/dL (0.6-1.3); POTASSIUM - SERUM 3.8 mmol/L (3.5-5.1)
--- NOTE | 2018-07-21 11:21 | NUR ---
IN ROOM. PATIENT WALKED WITH PT. TRIED TO SIT IN CHAIR. BECAME UNCOMFORTABLE SO GOT BACK IN BED. NO FURTHER NEEDS AT THIS TIME
--- NOTE | 2018-07-21 16:33 | MORECARE ---
CASE MANAGEMENT DISCHARGE SUMMARY PATIENT: LAUREN ROSARIO UNIT: [id number] ADM DATE: 07/18/18 AGE: 68 : 48 SEX: M ROOM/BED: D.2232 AUTHOR: CRYSTAL MICHELLE PHYSICIAN: REFERRING PHYSICIAN: SAL MORALES MD DATE OF SERVICE: 07/21/18 Discharge Plan Patient Name: LAUREN ROSARIO Facility: [facility]:[place] : 1950 Planned Disposition: Home Anticipated Discharge Date: Discharge Date: Expected LOS: Initial Reviewer: [email or web address] Initial Review Date: 07/21/2018 Generated: 07/21/18 5:33 pm Patient Name: LAUREN ROSARIO Page [id number] at 1633 All edits/amendments must be made on the electronic document DICTATION DATE: 07/21/18 163 MERCURY CELL CLEANER: ALYSON 07/21/18 1633 RPT#: [id number] DC DATE: STATUS: ADM IN [address] [place] [address] END OF REPORT
--- NOTE | 2018-07-21 16:43 | MORECARE ---
CASE MANAGEMENT DISCHARGE SUMMARY PATIENT: LAUREN ROSARIO UNIT: [id number] ADM DATE: 07/18/18 AGE: 68 : 48 SEX: M ROOM/BED: D.2232 AUTHOR: MIGUEL ANGELDOC PHYSICIAN: REFERRING PHYSICIAN: SAL MORALES MD DATE OF SERVICE: 07/21/18 Discharge Plan Patient Name: LAUREN ROSARIO Facility: [facility]:[place] : 1950 Planned Disposition: Home Anticipated Discharge Date: Discharge Date: Expected LOS: Initial Reviewer: [email or web address] Initial Review Date: 07/21/2018 Generated: 07/21/18 5:43 pm Comments DCP- Discharge Planning Updated by [email or web address]: Marlin Gleason on 07/21/18 3:[address] Patient Name: LAUREN ROSARIO Admission Status: ER Accout number: [id number] Admission Date: 07-18-2018 : 1950 Admission Diagnosis:SHORTNESS OF BREATH Attending: SAL MORALES Current LOS: 3 Anticipated DC Date: Planned Disposition: Home Primary Insurance: MEDICARE A & B Discharge Planning Comments: CM met with patient to discuss discharge planning, he is alone in the room. States he lives with his . States he is independent with all ADL's and AIDL's. States his will take him home on discharge. States he no longer has been using [facility] since he has started in Cardiac Rehab. I discussed the availability of rehab, home health and DME. He declines need for DME and home health. States his DCP is to return home with his and start cardiac rehab again when able. CM will continue to follow and assist with discharge planning/needs. Medical Facilities Section Director: Marlin Gleason DCPIA - Discharge Planning Initial Assessment Updated by [email or web address]: Marlin Gleason on 07/21/18 4:33 pm * Is the patient Alert and Oriented? Yes * How many steps to enter\exit or inside your home? Ramp/0 * PCP Dr. Miller * [facility]acy [facility] * Preadmission Environment Home with Family * ADLs Independent * Equipment Oxygen Walker * List name and contact numbers for known caregivers / representatives who currently or will assist patient after discharge: Kaleigh Rosario - Spouse - [phone] * Verbal permission to speak to the caregivers and representatives has been obtained from the patient. Yes * Community resources currently utilized Other * Please name any agencies selected above. Cardiac Rehab at [facility] * Additional services required to return to the preadmission environment? No * Can the patient safely return to the preadmission environment? Yes * Has this patient been hospitalized within the prior 30 days at any hospital? No Last DP export: 07/21/18 3:33 p Patient Name: LAUREN ROSARIO Page [id number] at 1643 All edits/amendments must be made on the electronic document DICTATION DATE: 07/21/181642 SHOE REPAIRER APPRENTICE: ALYSON 07/21/181642 RPT#: [id number] DC DATE: STATUS: ADM IN [facility] [address] [place] [address] END OF REPORT
--- NOTE | 2018-07-21 19:45 | NUR ---
PT RESTING IN BED. ALERT AND ORIENTED. NO SIGNS OF DISTRESS. BREATHING EVEN AND UNLABORED. PT STATES NO PROBLEMS AT THIS TIME. 2LO2 NASAL CANNULA. SKIN CLEAN DRY AND INTACT. IV SITE LT HAND DRESSING CLEAN DRY AND INTACT. NO SIGNS OF INFECTION. BOWEL SOUNDS ACTIVE. NO LOWER LEG SWELLING PRESENT. WILL CONTINUE PLAN OF CARE. CALL LIGHT IN REACH. BED LOWERED AND LOCKED. BED RAILS UP X1.
[2018-07-22] VITALS: BP 124/78
--- NOTE | 2018-07-22 01:38 | NUR ---
PT LYING IN BED RESTING, NO SIGNS OF DISTRESS. AGREE W/ RUBBER PRODUCTION MACHINE OPERATOR ASSESSMENT. CL IN REACH, WILL CONTINUE TO MONITOR
[2018-07-22 04:00] VITALS: BP 122/55
[2018-07-22 08:45] VITALS: BP 114/76
[2018-07-22 12:43] VITALS: BP 99/72
[2018-07-22] MEDS ORDERED: DOXYCYCLINE HY100 M2 PO (14:51)
[2018-07-22] MEDS ORDERED: MEDROL DOSE PACK4 MG PO (14:52)
[2018-07-22] MEDS ORDERED: ALBUTEROL SULF8.5 GM INH (14:53)
--- NOTE | 2018-07-22 15:31 | MORECARE ---
CASE MANAGEMENT DISCHARGE SUMMARY PATIENT: LAUREN ROSARIO UNIT: [id number] ADM DATE: 07/18/18 AGE: 68 : 48 SEX: M ROOM/BED: D.2232 AUTHOR: CRYSTAL MICHELLE PHYSICIAN: REFERRING PHYSICIAN: SAL MORALES MD DATE OF SERVICE: 07/22/18 Discharge Plan Patient Name: LAUREN ROSARIO Facility: [facility]:[place] : 1950 Planned Disposition: Home Anticipated Discharge Date: Discharge Date: Expected LOS: Initial Reviewer: [email or web address] Initial Review Date: 07/21/2018 Generated: 07/22/18 4:31 pm Comments DCP- Discharge Planning Updated by [email or web address]: Marlin Gleason on 07/22/18 2:[address] Patient Name: LAUREN ROSARIO Encounter No: [id number] : 1950 Primary Insurance: MEDICARE A & B Anticipated DC Date: Planned Disposition: Home External Planned Provider: : DCP follow-up note: Patient and family in agreement with discharge plan. Declines need for home health. in room and taking him home. No changes to plan. Case management will follow and assist as needed. Marlin Gleason DCP- Discharge Planning Updated by [email or web address]: Marlin Gleason on 07/21/18 3:[address] Patient Name: LAUREN ROSARIO Admission Status: ER Accout number: [id number] Admission Date: 07-18-2018 : 1950 Admission Diagnosis:SHORTNESS OF BREATH Attending: SAL MORALES Current LOS: 3 Anticipated DC Date: Planned Disposition: Home Primary Insurance: MEDICARE A & B Discharge Planning Comments: CM met with patient to discuss discharge planning, he is alone in the room. States he lives with his . States he is independent with all ADL's and AIDL's. States his will take him home on discharge. States he no longer has been using [facility] since he has started in Cardiac Rehab. I discussed the availability of rehab, home health and DME. He declines need for DME and home health. States his DCP is to return home with his and start cardiac rehab again when able. CM will continue to follow and assist with discharge planning/needs. Mine Technician: Marlin Gleason DCPIA - Discharge Planning Initial Assessment Updated by [email or web address]: Marlin Gleason on 07/21/18 4:33 pm * Is the patient Alert and Oriented? Yes * How many steps to enter\exit or inside your home? Ramp/0 * PCP Dr. Miller * [facility] * Preadmission Environment Home with Family * ADLs Independent * Equipment Oxygen Walker * List name and contact numbers for known caregivers / representatives who currently or will assist patient after discharge: Kaleigh Rosario - [facility] - [phone] * Verbal permission to speak to the caregivers and representatives has been obtained from the patient. Yes * Community resources currently utilized Other * Please name any agencies selected above. [facility] at [facility] * Additional services required to return to the preadmission environment? No * Can the patient safely return to the preadmission environment? Yes * Has this patient been hospitalized within the prior 30 days at any hospital? No Coverage Notice Reviewer: [email or web address] - Marlin Gleason Notice Issued Date-Time: 07/22/2018 15:29 Notice Type: IM Discharge Notice Notice Delivered To: Patient Relationship to Patient: Self Image Consultant Name: Delivery Method: HAND - Hand Delivered Gladis Days: Prior Verbal Notification: Recipient Understood Notice: Yes Recipient Signature: Yes Med Rec Note Co-signed by Attending: Coverage Notice Comment: IMM explained, signed, given, copy placed in MR Last DP export: 07/21/18 3:43 p Patient Name: LAUREN ROSARIO Page [phone] at 1531 All edits/amendments must be made on the electronic document DICTATION DATE: 07/22/18 1531 TRUCK DRIVER RUBBISH COLLECTOR: ALYSON 07/22/18 1531 RPT#: [id number] DC DATE: STATUS: ADM IN [facility] [address] [place] [address] END OF REPORT
--- NOTE | 2018-07-22 16:41 | NUR ---
IV THERAPY DC'ED WITH TIP INTACT. VERBALIZED UNDERSTANDING OF DISCHARGE INSTRUCTIONS.
--- NOTE | 2018-07-23 13:49 | MORECARE ---
CASE MANAGEMENT DISCHARGE SUMMARY PATIENT: LAUREN ROSARIO UNIT: [id number] ADM DATE: 07/18/18 AGE: 68 : 48 SEX: M ROOM/BED: D.2232 AUTHOR: CRYSTAL MICHELLE PHYSICIAN: REFERRING PHYSICIAN: SAL MORALES MD DATE OF SERVICE: 07/23/18 Discharge Plan Patient Name: LAUREN ROSARIO Facility: [facility]:[place] : 1950 Planned Disposition: Home Anticipated Discharge Date: Discharge Date: 07/22/2018 Expected LOS: 0 Initial Reviewer: [email or web address] Initial Review Date: 07/21/2018 Generated: 07/23/18 2:49 pm Comments DCP- Discharge Planning Updated by [email or web address]: Marlin Gleason on 07/22/18 2:[address] Patient Name: LAUREN ROSARIO Encounter No: [id number] : 1950 Primary Insurance: MEDICARE A & B Anticipated DC Date: Planned Disposition: Home External Planned Provider: : DCP follow-up note: Patient and family in agreement with discharge plan. Declines need for home health. in room and taking him home. No changes to plan. Case management will follow and assist as needed. Marlin Gleason DCP- Discharge Planning Updated by [email or web address]: Marlin Gleason on 07/21/18 3:[address] Patient Name: LAUREN ROSARIO Admission Status: ER Accout number: [id number] Admission Date: 07-18-2018 : 1950 Admission Diagnosis:SHORTNESS OF BREATH Attending: SAL MORALES Current LOS: 3 Anticipated DC Date: Planned Disposition: Home Primary Insurance: MEDICARE A & B Discharge Planning Comments: CM met with patient to discuss discharge planning, he is alone in the room. States he lives with his . States he is independent with all ADL's and AIDL's. States his will take him home on discharge. States he no longer has been using [facility] since he has started in Cardiac Rehab. I discussed the availability of rehab, home health and DME. He declines need for DME and home health. States his DCP is to return home with his and start cardiac rehab again when able. CM will continue to follow and assist with discharge planning/needs. Business Development Officer: Marlin Gleason DCPIA - Discharge Planning Initial Assessment Updated by [email or web address]: Marlin Gleason on 07/21/18 4:33 pm * Is the patient Alert and Oriented? Yes * How many steps to enter\exit or inside your home? Ramp/0 * PCP Dr. Miller * [facility] * Preadmission Environment Home with Family * ADLs Independent * Equipment Oxygen Walker * List name and contact numbers for known caregivers / representatives who currently or will assist patient after discharge: Kaleigh Rosario - Spouse - [phone] * Verbal permission to speak to the caregivers and representatives has been obtained from the patient. Yes * Community resources currently utilized Other * Please name any agencies selected above. Cardiac Rehab at [facility] * Additional services required to return to the preadmission environment? No * Can the patient safely return to the preadmission environment? Yes * Has this patient been hospitalized within the prior 30 days at any hospital? No Coverage Notice Reviewer: [email or web address] - Marlin Gleason Notice Issued Date-Time: 07/22/2018 15:29 Notice Type: IM Discharge Notice Notice Delivered To: Patient Relationship to Patient: Self Manufacturing Leader Name: Delivery Method: HAND - Hand Delivered Gladis Days: Prior Verbal Notification: Recipient Understood Notice: Yes Recipient Signature: Yes Med Rec Note Co-signed by Attending: Coverage Notice Comment: IMM explained, signed, given, copy placed in MR Last DP export: 07/22/18 2:31 p Patient Name: LAUREN ROSARIO Page 22530 at 1349 All edits/amendments must be made on the electronic document DICTATION DATE: 07/23/18 1348 RUBBER TIRE CURER: ALYSON 07/23/18 1348 RPT#: [id number] DC DATE:07/22/18 STATUS: DIS IN [facility] [address] [facility] [place] [address] END OF REPORT
--- NOTE | 2018-07-27 11:18 | EC ---
PATIENT:LAUREN ROSARIO DATE OF SERVICE: 07/18/18 SEX: M MEDICAL RECORD: [id number] DATE OF : [birth year] LOCATION:D.[facility] [place] AGE OF PATIENT: 68 ADMISSION DATE: 07/18/18 REFERRING PHYSICIAN: INTERPRETING PHYSICIAN: EDIS ABEL MD ECHOCARDIOGRAM REPORT ECHO CHARGES 4 ECHO COMPLETE Date: 07/20/18 CLINICAL DIAGNOSIS: CHF ECHOCARDIOGRAPHIC MEASUREMENTS (adult normal given) AC root (d.<3.7cm) 3.0 cm LV Septum d (<1.2 cm> 1.2 cm Valve Excursion 1.7 cm LV Septum (systole) 1.4 cm Left Atria (s.<4.0cm> 4.7 cm LVPW d(<1.2cm) 1.1 cm RV (d.<2.3cm) 4.5 cm LVPW (sytole) 1.5 cm LV diastole(<5.6CM) 7.1 cm MV E-F(>70mm/sec) cm LV systole 6.1 cm LVOT Diameter 2.4 cm MV exc.(>10mm) cm Est.ejection fraction (50-75%) % DOPPLER: LVIT cm/sec A cm/sec E cm/sec LA cm/sec RVSP 25 mmHg LVOT 98 cm/sec AOP1/2T 339 m/s Asc. Ao 156 cm/sec RVOT 53 cm/sec RA cm/sec PA 109 cm/sec AV Gradient Peak 9.73 mmHg AV Mean 4.88 mmHg AV Area 3.4 cm MV Gradient Peak 6.45 mmHg MV Mean 2.22 mmHg MV Area cm COMMENTS: Lens Grinder And Polisher: Vilma VITAL Sinter Machine Operator: 2 Dr. [place] TAPE# PACS Pericardial Effusion N DATE OF SERVICE: 07/20/2018 ECHOCARDIOGRAM DATE OF SERVICE: 07/20/2018 FINDINGS: 1. Left ventricular chamber size is moderately dilated. Left ventricular systolic function is moderately reduced, overall ejection fraction 35%. 2. The left atrium is moderately dilated at 4.7 cm. Right atrium and right ECHOCARDIOGRAM REPORT [id number] LAUREN ROSARIO ventricle chamber sizes are as well moderately dilated. 3. Valvular structures have normal structure and motion. 4. Doppler interrogation reveals mild aortic insufficiency, moderate mitral regurgitation, mild tricuspid regurgitation. No other valvular insufficiency or stenosis. Pulmonary systolic pressure is estimated at 25 mmHg. 5. No evidence of pericardial effusion or left ventricular thrombus. TRANSINT:[id number] Voice Confirmation ID: [id number] DOCUMENT ID: [id number] EDIS ABEL MD at 1118 CC: [id number] DICTATION DATE: 07/20/18 1439 ROOM SERVICE WAITER/WAITRESS: 07/20/18 1552 DIS IN 07/22/18 [place] [id number] [place] [id number]
== END 2018-07-22 16:45 | disposition home or self-care (01) | DRG 291 ==
LOC: D.ER 06:23 → D.EDHOLD 09:21 → D.MS 09:21
PROVIDERS: Emergency Medicine; Family Medicine; ADMIT Family Medicine
DX: I50.21 Acute systolic (congestive) heart failure (principal); J18.9 Pneumonia, unspecified organism; I25.10 Atherosclerotic heart disease of native coronary artery without angina pectoris; I10 Essential (primary) hypertension; E87.6 Hypokalemia

== ENCOUNTER → 2018-09-21 15:05 | Outpatient (CLI) | payer MEDICARE, OTHER ==
[2018-07-18 13:01] VITALS: BMI 26.2
[~2018-09-21 15:05] MED LIST changes: +ALBUTEROL SULF8.5 GM INH; +DOXYCYCLINE HY100 M2 PO; +MEDROL DOSE PACK4 MG PO; +POTASSIUM40 MEQ/15 PO
== END | disposition home or self-care (01) ==
LOC: D.CT 15:05
PROVIDERS: ATTEND Obstetrics & Gynecology
DX: R26.89 Other abnormalities of gait and mobility (principal)

== ENCOUNTER → 2018-11-02 10:58 | Outpatient (CLI) | payer MEDICARE, OTHER ==
[2018-07-18 13:01] VITALS: BMI 26.2
== END | disposition home or self-care (01) ==
LOC: D.RT 10:58
PROVIDERS: ATTEND Internal Medicine Pulmonary Disease
DX: J90 Pleural effusion, not elsewhere classified (principal)

== ENCOUNTER → 2018-11-22 09:01 | Outpatient (CLI) | payer MEDICARE, OTHER ==
[2018-07-18 13:01] VITALS: BMI 26.2
== END | disposition home or self-care (01) ==
LOC: D.ECHO 09:00
PROVIDERS: ATTEND Thoracic Surgery (Cardiothoracic Vascular Surgery)
DX: I25.10 Atherosclerotic heart disease of native coronary artery without angina pectoris (principal)

== ENCOUNTER 2019-01-05 17:21 | Inpatient (IN) | payer MEDICARE, OTHER ==
[~2019-01-05] VITALS: Ht 180.3 cm; Wt 72.6 kg
--- NOTE | ~2019-01-05 | CN ---
PATIENT NAME:LAUREN SANCHEZ MEDICAL RECORD: [id number] : [birth year] LOCATION:D. D.2136 ADMIT DATE: 01/06/19 ACCOUNT: [id number] CONSULTING PHYSICIAN: EDIS ABEL MD REFERRING PHYSICIAN: JOSE J DE LOS SANTOS MD DATE OF CONSULTATION: 01/07/2019 DIAGNOSES: 1. Shortness of breath. 2. Congestive heart failure, chronic systolic dysfunction. 3. Dilated cardiomyopathy. 4. Coronary artery disease. 5. Status post coronary bypass graft surgery. 6. Pleural effusions. 7. Chronic obstructive pulmonary disease. 8. Smoking history. 9. Paroxysmal atrial fibrillation, controlled in sinus rhythm on amiodarone. 10. Hyperlipidemia. HISTORY OF PRESENT ILLNESS: Mr. Sanchez is known to us with a past history of coronary artery disease, 2-vessel bypass in March of last year. He has a cardiomyopathy, ejection fraction in the 35% range, most recent echo in the 25% range. He presents with shortness of breath, dyspnea on exertion, found to have pneumonia as well as pleural effusion. This is being treated with antibiotics. He has undergone thoracentesis in the past. He has been followed by pulmonary. He has a history of congestive heart failure. Obviously with the cardiomyopathy, he is receiving diuresis and diuresing at this time. He is not having any symptomatology from the standpoint of ischemic heart disease, not having symptomatology from the standpoint of dysrhythmia or atrial fibrillation. PHYSICAL EXAMINATION: CONSTITUTIONAL/GENERAL APPEARANCE: Well nourished, well developed, appears stated age. Level of distress, comfortable. EYES: Lids and conjunctivae noninjected. No discharge. No pallor. ENT: Lips within normal limit. No cyanosis. No pallor. NECK: Carotid arteries, bilateral normal upstroke. No bruits. No thrills. No jugular venous pressure or distention. CERVICAL LYMPH NODES: Nontender. Nonenlarged. THYROID: Not enlarged. No nodules. CARDIOVASCULAR: Precordial exam, nondisplaced. No heaves or pericardial thrills. Rate and rhythm, regular. Heart sounds, normal S1, normal S2. No S3, no gallop, no rub. Systolic murmur, not heard. Diastolic murmur, not heard. RESPIRATORY: Respiratory effort, unlabored. Normal curvature. No thoracic deformity. No chest wall tenderness. Percussion, resonant. Auscultation, clear. No wheezes, no rales, no rhonchi. ABDOMEN: Soft, nondistended, nontender. MUSCULOSKELETAL: No joint tenderness, normal gait, normal tone. SKIN: Warm and dry. OVERALL IMPRESSION: 1. Shortness of breath, dyspnea on exertion. This is a combination of congestive heart failure, chronic systolic dysfunction from the cardiomyopathy, pneumonia and the pleural effusions. At this time, from a cardiac standpoint, no other workup needs to be done. We know he has an ejection fraction in the 25% range. Diuresis will be the mainstay of therapy, which he is undergoing. CONSULT REPORT [id number] LAUREN SANCHEZ 2. Ischemic heart disease. He does have a history of coronary artery disease. His EKG is with a left bundle branch block; however, this is not new. He has no ischemic changes. Troponins were normal. From the standpoint of ischemic heart disease, he is stable. 3. Dysrhythmia. From the standpoint of the atrial fibrillation, he maintains sinus rhythm on the amiodarone and is stable from that standpoint. At this time, continue the diuresis. No other cardiac workup or treatment is necessary. TRANSINT:[id number] Voice Confirmation ID: [id number] DOCUMENT ID: [id number] EDIS ABEL MD CC: [id number] DICTATION DATE: 01/07/19 1041 CORPORATE SALES REPRESENTATIVE: 01/07/19 1056 ADM IN [facility] [address] [place] [address]
[2019-01-05] MEDS ORDERED: LASIX20 MG PO (17:37)
[2019-01-05] MEDS ORDERED: PROTONIX40 MG PO (17:39)
[2019-01-05 18:28] LABS: BASOPHILS 0.3 % (0-2); EOSINOPHILS 0.1 % (0-7); HEMOGLOBIN 10.6 g/dL (13.5-17.5); LYMPHOCYTES 5.6 % (15-50); MCH 31.6 pg (26.0-34.0); MCHC 34.2 g/dL (31.0-37.0); MCV 92.5 fL (80.0-100.0); MEAN PLATELET VOLUME 11.5 fL (7.4-10.4); MONOCYTES 3.9 % (2-11); NEUTROPHILS 90.1 % (40-80); RBC 3.35 10x6/uL (4.20-6.10); RDW 15.7 % (11.5-14.5); WBC 6.9 10x3/uL (4.8-10.8)
[2019-01-05 18:31] LABS: PLATELET COUNT 171 10x3/uL (130-400)
[2019-01-05 18:40] LABS: INR 1.36 (0.85-1.17); PROTIME 16.3 SECONDS (11.6-15.0)
[2019-01-05 18:55] LABS: ALBUMIN 3.2 g/dL (3.4-5.0); ALKALINE PHOSPHATASE 119 U/L (46-116); ALT (SGPT) 25 U/L (10-68); CALC OSMOLALITY 288 mosm/kg (275-300); CALCIUM 8.5 mg/dL (8.5-10.1); CARBON DIOXIDE 29.6 mmol/L (21.0-32.0); CHLORIDE - SERUM 104 mmol/L (98-107); CREATININE - SERUM 1.1 mg/dL (0.6-1.3); GLUCOSE 111 mg/dL (74-106); POTASSIUM - SERUM 3.3 mmol/L (3.5-5.1); PROTEIN - SERUM 6.2 g/dL (6.4-8.2); SODIUM 142 mmol/L (136-145); UREA NITROGEN 27 mg/dL (7-18); eGFR NON AFRICAN AMERICAN 70 mL/min (90-120)
[2019-01-05 19:01] LABS: CKMB 0.1 U/L (0.0-3.6); CREATINE KINASE 34 UL (21-232); PRO BNP 12880 pg/mL (0-125); TROPONIN-I 0.036 ng/mL (0.000-0.060)
--- NOTE | 2019-01-05 22:01 | NUR ---
URINE SENT TO LAB.
[2019-01-05 23:29] LABS: APPEARANCE CLEAR (CLEAR); BILIRUBIN NEGATIVE (NEGATIVE); COLOR YELLOW (YELLOW); GLUCOSE NEGATIVE (NEGATIVE); KETONE NEGATIVE (NEGATIVE); NITRITE NEGATIVE (NEGATIVE); PROTEIN NEGATIVE (NEGATIVE); SPECIFIC GRAVITY 1.015 (1.005-1.020); UROBILINOGEN NORMAL (NORMAL)
--- NOTE | 2019-01-06 01:31 | NUR ---
ROCEPHIN INFUSION COMPLETE AT THIS TIME.
--- NOTE | 2019-01-06 02:17 | NUR ---
PT ARRIVED TO ROOM 2135 PT IS AAO X3, GLASSES NOTED. PT HAS A LEFT AC PIV, PATENT. WILL CLAIM AGENT ANTIBIOTICS ORDERED. PT IS PALE, HAS WEAKNESS. ASSISTED PT TO SCALE. STANDING WEIGHT 160LBS. PT HAS REDNESS AND EXCORIATION ON COCCYX. BLANCHABLE. ADMIT COMPLETE. PT O2 SAT IS BELOW 90% PLACED 2L ON PT AND NOW IS 94% PT HAS NO S/S OF DISTRESS. WILL CPOC
[2019-01-06 02:25] VITALS: BP 94/53; BMI 22.3
[2019-01-06 04:00] VITALS: BP 90/49
--- NOTE | 2019-01-06 05:15 | NUR ---
PT LAYING IN BED. 2L O2 NC. PT BED LOW AND CALL LIGHT IN REACH. NO S/S OF DISTRESS. SPOUSE AT BED SIDE. WILL CPOC
[2019-01-06 08:21] VITALS: BP 109/60
--- NOTE | 2019-01-06 09:40 | NUR ---
SCD'S REFUSED AT THIS TIME
[2019-01-06 11:55] VITALS: BP 107/60
[2019-01-06 14:25] VITALS: Ht 180.3 cm; Wt 72.6 kg
--- NOTE | 2019-01-06 16:49 | HP ---
PATIENT: LAUREN ROSARIO MEDICAL RECORD: [id number] ACCOUNT: [id number] LOCATION:[address] : [birth year] ADMISSION DATE: 01/06/19 PCP: JOSE J DE LOS SANTOS MD HISTORY AND PHYSICAL EXAMINATION DATE OF ADMISSION: 01/06/2019 CHIEF COMPLAINT: "Chilled, hard to breathe." HISTORY OF PRESENT ILLNESS: This is a 68-year-old white male who was feeling pretty good until yesterday morning when he woke up and just felt chilled. He was having increased work to breathe. When he finally told his about all this, she brought him to the ER and his temperature was 101.1. His O2 sat was actually 98%. Though his D-dimer was a little elevated, chest x-ray did not show anything acute, but a CTA of the chest with PE protocol showed no PE, but there was a large right and small to medium left pleural effusion and bilateral multifocal airspace disease. He is admitted. PAST MEDICAL AND SURGICAL HISTORY: He has a history of hypertension, but now has low blood pressure, actually on Florinef. He has a history of high cholesterol, gout, achalasia with a history of several esophageal dilatations by Dr. Gonsales. He has been to [facility] recently and seeing a surgeon and then now is referred to a construction accountant in fact next week. He is scheduled for esophageal pH and manometry at [facility]. Last EGD was on 08/25/2018, it showed a large food bolus in the esophagus, removed by Dr. Gonsales. The patient is currently on a liquid diet. Other past medical history; in 2013 he had lacunar infarcts in thalamus and caudate nucleus, causing behavioral and personality changes. He was seen by neurology at [facility] for that. He was found to have coronary artery disease late last year and had 2-vessel CABG by Dr. Wong in April of 2018. Two-vessel CABG by Dr. Wong in 2018. ALLERGIES: No known. SOCIAL HISTORY: He is retired. He is . HOME MEDICATIONS: Include albuterol metered dose inhaler 2 puffs every 4 to 6 hours as needed for shortness of breath; atorvastatin 10 mg once a day; amiodarone 200 mg once a day; aspirin 81 mg once a day; Lasix 20 mg once a day; potassium chloride oral solution, he takes 40 mEq once a day; Protonix 40 mg once a day; Florinef 0.1 mg once a day and allopurinol 300 mg once a day. HABITS: Never smoked. No history of alcohol use. No illicit drug use. REVIEW OF SYSTEMS: GENERAL: He has had weight loss over the last year. HEENT: No particular sinus or allergy problems. RESPIRATORY: He has shortness of breath. He was admitted in June of this year with multifocal pneumonia. He has seen Dr. Loera in the past. CARDIAC: See above history. GASTROINTESTINAL: See above history with achalasia, now with further followup per [facility]. GENITOURINARY: No significant problems there. MUSCULOSKELETAL: No significant problems there. NEUROLOGIC: Has the history of the lacunar infarcts causing behavior and personality changes in 2013. HISTORY AND PHYSICAL [id number] LAUREN ROSARIO PSYCHIATRIC: Denies depression or melancholia. PHYSICAL EXAMINATION: VITAL SIGNS: Temperature in the ER was 101.1, heart rate 82, respirations 20, blood pressure 129/70, O2 sat 98%. Currently, 98.2 temperature, pulse 63, respirations 17, blood pressure 109/60, O2 sat 98%. GENERAL: He is resting comfortably, does not appear in distress at this time. SKIN: Warm and dry. HEENT: Grossly within normal limits. NECK: Supple. HEART: Regular rate and rhythm. LUNGS: Fairly clear, maybe a little decreased breath sounds in the right base. ABDOMEN: Soft, flat, nontender. EXTREMITIES: He has never had edema and does not have it now. LABORATORY DATA: Influenza A and B tests were negative. Urinalysis is negative. Lactic acid is 1.4, which is normal. ABG; pH 7.57, pCO2 26, pO2 71. CBC with a white count of 6900, hemoglobin 10.6, hematocrit 31.0, 90% polys. Basic metabolic panel; sodium 142, potassium 3.3, chloride 104, CO2 29.6, BUN 27, creatinine 1.1, glucose 111, calcium 8.5. INR 1.36. Total bilirubin 1.5. Other liver functions are normal. ProBNP 12,880. Chest x-ray again read as nothing acute. CTA of the chest with PE protocol showed no PE, but there is a large right and small to moderate left pleural effusion and bilateral multifocal airspace disease. ASSESSMENT: 1. Bilateral pneumonia. 2. Pleural effusion. 3. Chronic congestive heart failure. 4. Achalasia. PLAN: He is admitted. Blood cultures, started on antibiotics. We will ask pulmonary to see him. His last two echos were in July of this year. His EF was 35% and in 11/22/2018 his EF of 25% to 30%. Other tests or procedures as warranted. TRANSINT:[id number] Voice Confirmation ID: [id number] DOCUMENT ID: [id number] JOSE J DE LOS SANTOS MD at 1649 CC: [id number] DICTATION DATE: 01/06/19 1101 HOTEL FRONT OFFICE MANAGER: 01/06/19 1215 ADM IN [place] [id number] [place] [address]
--- NOTE | 2019-01-06 19:10 | NUR ---
PT LAYING IN BED WITH EYES OPEN WATCHING TV. WATER AT BED SIDE, APPROVED BY DR. NGUYEN. PT SPOUSE AT BED SIDE. PT DENIES ANY NEEDS. NO S/S OF DISTRESS. 2L O2 NC. PT WILL CALL FOR ASSIST WHEN NEEDED. NAME AND DATE PLACED ON BOARD. WILL CPOC
[2019-01-06 20:00] VITALS: BP 112/68
--- NOTE | 2019-01-06 20:15 | NUR ---
PT REQUESTING TYLENOL. PT RECEIVED. AT BED SIDE. WILL CPOC
--- NOTE | 2019-01-06 23:46 | NUR ---
ROCEPHIN STARTED ORDERED. PT HAS NO S/S OF DISTRESS. BED LOW AND CALL LIGHT IN REACH. SPOUSE AT BED SIDE. WILL CPOC
[2019-01-07] VITALS: BP 101/58
--- NOTE | 2019-01-07 00:58 | NUR ---
ROCEPHIN IS COMPLETE AND FLUSHED DOWN LINE. FLUSHED IV AND S/L PLACED SWAB CAP. PT HAS NO S/S OF DISTRESS. DENIES ANY NEEDS. WILL CPOC
[2019-01-07 04:30] VITALS: BP 102/63
--- NOTE | 2019-01-07 06:16 | NUR ---
PROTONIX GIVEN DISCUSSED PLAN OF CARE WITH PT AND SPOUSE. PT DENIES ANY QUESTIONS OR CONCERNS AT THIS TIME. WILL CPOC
[2019-01-07 06:26] LABS: ALBUMIN 2.6 g/dL (3.4-5.0); ANION GAP 13.8 mmol/L (8-16); BILIRUBIN - TOTAL 0.89 mg/dL (0.2-1.3); CALCIUM 8.1 mg/dL (8.5-10.1); CARBON DIOXIDE 29.2 mmol/L (21.0-32.0); CREATININE - SERUM 1.1 mg/dL (0.6-1.3); MAGNESIUM - SERUM 1.8 mg/dL (1.8-2.4); PHOSPHOROUS 4.4 mg/dL (2.5-4.9); PROTEIN - SERUM 5.3 g/dL (6.4-8.2)
[2019-01-07 06:31] LABS: BASOPHILS 0.5 % (0-2); EOSINOPHILS 0.2 % (0-7); HEMATOCRIT 28.9 % (42.0-54.0); HEMOGLOBIN 9.7 g/dL (13.5-17.5); IMMATURE GRANULOCYTES 0.2 % (0-5); LYMPHOCYTES 7.2 % (15-50); MCH 31.6 pg (26.0-34.0); MCHC 33.6 g/dL (31.0-37.0); MCV 94.1 fL (80.0-100.0); MEAN PLATELET VOLUME 11.9 fL (7.4-10.4); MONOCYTES 8.2 % (2-11); NEUTROPHILS 83.7 % (40-80); RBC 3.07 10x6/uL (4.20-6.10); RDW 16.1 % (11.5-14.5)
[2019-01-07 07:01] LABS: PLATELET COUNT 119 10x3/uL (130-400); WBC 4.2 10x3/uL (4.8-10.8)
[2019-01-07 08:59] VITALS: BP 102/59
--- NOTE | 2019-01-07 09:07 | NUR ---
PATIENT IS LAYING ON HIS BACK IN BED AT THIS TIME. ALERT AND AWAKE. REPORTS THAT HE HAS NOT HAD ANY REAL FOOD SINCE JULY AND HAS AN APPT WITH [facility] ON THURSDAY AND THURSDAY. HE HAS HAD SIPS OF WATER AND A COUPLE ICE CHIPS SINCE HIS ADMISSION HERE. DENIES ANY NEEDS AT THIS TIME. IS AT BEDSIDE.
--- NOTE | 2019-01-07 14:10 | NUR ---
PT HAS A HEALING STAGE 2 PRESSURE INJURY ON SACRUM. STATES SHE HAS BEEN TREATING IT WITH CALMOSEPTINE FOR ABOUT 6 WEEKS. SHE STATES IT HAS IMPROVED. RECOMMEND CONTINUING WITH CALMOSEPTINE. ALSO PT WAS PLACED ON AN AIR OVERLAY MATTRESS. HE HAS FAMILY STAYING WITH HIM AT ALL TIMES. HE STATED HE WOULD NOT GET OUT OF BED WITHOUT ASSISTANCE AND WOUND CONTINUE TURNING AND REPOSITIONING HIMSELF IN BED IN ORDER TO STAY OFF HIS BOTTOM. WOUND CARE WILL CONTINUE MONITORING.
[2019-01-07 16:17] VITALS: BP 116/66
--- NOTE | 2019-01-07 19:19 | NUR ---
BEDSIDE REPORT RECEIVED FROM DAY SHIFT. PT CARE ASSUMED. INTRODUCED SELF AND WROTE NAME ON BOARD. PT LYING AAOX4 IN BED, DENIES PAIN OR ANY OTHER NEEDS AT THIS TIME. FAMILY AT BEDSIDE. BED IN LOWEST POSITION, SR X2, CALL LIGHT WITHIN REACH. WILL CONTINUE TO MONITOR.
--- NOTE | 2019-01-07 19:44 | NUR ---
REMOVED IV IN LEFT FOREARM WITH CATHETER INTACT. PATIENT TOLERATED.NEW IV STARTED IN RIGHT FOREARM 22G 2 STICKS. PATIENT TOLERATED.
[2019-01-07 20:00] VITALS: BP 110/62
[2019-01-08 00:30] VITALS: BP 104/59
[2019-01-08 04:30] VITALS: BP 103/56
[2019-01-08 05:53] LABS: BASOPHILS 0.4 % (0-2); EOSINOPHILS 1.5 % (0-7); HEMATOCRIT 28.2 % (42.0-54.0); HEMOGLOBIN 9.7 g/dL (13.5-17.5); IMMATURE GRANULOCYTES 0.2 % (0-5); LYMPHOCYTES 6.2 % (15-50); MCH 31.7 pg (26.0-34.0); MCHC 34.4 g/dL (31.0-37.0); MCV 92.2 fL (80.0-100.0); MONOCYTES 9.1 % (2-11); NEUTROPHILS 82.6 % (40-80); PLATELET COUNT 118 10x3/uL (130-400); RBC 3.06 10x6/uL (4.20-6.10); RDW 15.5 % (11.5-14.5); WBC 5.2 10x3/uL (4.8-10.8)
[2019-01-08 06:01] LABS: ANION GAP 11.9 mmol/L (8-16); CALCIUM 8.1 mg/dL (8.5-10.1); CARBON DIOXIDE 27.7 mmol/L (21.0-32.0); CREATININE - SERUM 1.1 mg/dL (0.6-1.3); MAGNESIUM - SERUM 1.6 mg/dL (1.8-2.4)
[2019-01-08 06:04] LABS: PHOSPHOROUS 3.1 mg/dL (2.5-4.9)
[2019-01-08 06:05] LABS: POTASSIUM - SERUM 2.6 mmol/L (3.5-5.1)
[2019-01-08 06:15] LABS: APTT 35.7 SECONDS (22.8-39.4); INR 1.24 (0.85-1.17); PROTIME 15.1 SECONDS (11.6-15.0)
[2019-01-08 06:16] LABS: D-DIMER-QUANTITATIVE 1.49 ug/mLFEU (0.20-0.54)
--- NOTE | 2019-01-08 07:53 | NUR ---
PATIENT IS RESTING ON HIS LEFT SIDE IN BED WITH EYES CLOSED AND AT BEDSIDE. LIGHTS OFF. RECIEVED REPORT. PATIENT DENIES ANY NEEDS AT THIS TIME.
[2019-01-08 08:43] VITALS: BP 84/45
--- NOTE | 2019-01-08 11:14 | NUR ---
ACKNOWLEDGED CRITICAL LOW POTASSIUM. TREATING WITH ELECTROLYTE PROTOCOL ORDERED.
[2019-01-08 12:13] VITALS: BP 97/56
--- NOTE | 2019-01-08 17:34 | NUR ---
DISSOLVED POTASSIUM TABLET IN WARM WATER AND GAVE TO PATIENT. TREATING ELECTROLYTES ORDERED.
--- NOTE | 2019-01-08 19:21 | NUR ---
REPORT RECEIVED FROM DAY SHIFT. PT CARE ASSUMED. WROTE NAME ON BOARD IN PT'S ROOM, PT LYING IN BED, AAOX4. DENIES PAIN AND ANY OTHER NEEDS AT THIS TIME. BED IN LOWEST POSITION, SR X2, CALL LIGHT WITHIN REACH, WILL CONTINUE TO MONITOR.
[2019-01-08 20:00] VITALS: BP 101/56
--- NOTE | 2019-01-08 22:05 | NUR ---
LAB CALLED, SERUM POTASSIUM LEVEL OF 2.6 RECEIVED. TREATED PER ELECTROLYTE PROTOCOL.
[2019-01-09] VITALS: BP 93/51
[2019-01-09 04:00] VITALS: BP 100/55
[2019-01-09 06:15] LABS: HEMATOCRIT 27.9 % (42.0-54.0); HEMOGLOBIN 9.5 g/dL (13.5-17.5); LYMPHOCYTES 6.4 % (15-50); MCHC 34.1 g/dL (31.0-37.0); MEAN PLATELET VOLUME 12.2 fL (7.4-10.4); NEUTROPHILS 82.6 % (40-80); PLATELET COUNT 121 10x3/uL (130-400); RBC 2.88 10x6/uL (4.20-6.10); RDW 16.3 % (11.5-14.5)
[2019-01-09 06:16] LABS: MCV 96.9 fL (80.0-100.0)
--- NOTE | 2019-01-09 06:35 | NUR ---
XRAY TO PT'S ROOM AT THIS TIME.
[2019-01-09 06:41] LABS: CALC OSMOLALITY 285 mosm/kg (275-300); CALCIUM 8.1 mg/dL (8.5-10.1); CARBON DIOXIDE 25.3 mmol/L (21.0-32.0); CHLORIDE - SERUM 106 mmol/L (98-107); CREATININE - SERUM 0.9 mg/dL (0.6-1.3); GLUCOSE 106 mg/dL (74-106); MAGNESIUM - SERUM 1.6 mg/dL (1.8-2.4); PHOSPHOROUS 2.8 mg/dL (2.5-4.9); SODIUM 142 mmol/L (136-145); UREA NITROGEN 22 mg/dL (7-18); eGFR NON AFRICAN AMERICAN 89 mL/min (90-120)
[2019-01-09 06:42] LABS: POTASSIUM - SERUM 3.6 mmol/L (3.5-5.1)
--- NOTE | 2019-01-09 07:16 | NUR ---
INITIAL ROUNDING, BEDSIDE SHIFT REPORT COMPLETED. WHITE BOARD UPDATED.PATIENT AWAKE AND RESTING IN BED, SPOUSE IN THE RECLINER AT BEDSIDE. PATIENT DENIES PAIN, AND DENIES NEEDS AT THIS TIME. HE IS WAITING TO BE DISCHARGED HOME FOR AN APPOINTMENT ON THURSDAY.
[2019-01-09 09:06] VITALS: BP 97/55
[2019-01-09 11:43] VITALS: BP 97/53
[2019-01-09] MEDS ORDERED: VIBRAMYCIN 100100 MG PO (13:54)
[2019-01-09] MEDS ORDERED: OMNICEF300 MG PO (13:54)
[2019-01-09] MEDS ORDERED: MAG-OX 400 MG400 MG PO (13:55)
--- NOTE | 2019-01-09 14:38 | NUR ---
OFFERED PT REFERRAL TO TOBACCO QUITLINE. HE DECLINED.
--- NOTE | 2019-01-10 09:48 | MORECARE ---
CASE MANAGEMENT DISCHARGE SUMMARY PATIENT: LAUREN ROSARIO UNIT: [id number] ADM DATE: 01/06/19 AGE: 68 : 48 SEX: M ROOM/BED: D.2136 AUTHOR: CRYSTAL MICHELLE PHYSICIAN: REFERRING PHYSICIAN: JOSE J DE LOS SANTOS MD DATE OF SERVICE: 01/10/19 Discharge Plan Patient Name: LAUREN ROSARIO Facility: [facility]:[place] : 1950 Planned Disposition: Home Anticipated Discharge Date: 01/09/19 Discharge Date: 01/09/2019 Expected LOS: 3 Initial Reviewer: [email or web address] Initial Review Date: 01/10/2019 Generated: 01/10/19 10:48 am Patient Name: LAUREN ROSARIO Page [phone] at 0948 All edits/amendments must be made on the electronic document DICTATION DATE: 01/10/19947 RAGS LABORER: ALYSON 01/10/19947 RPT#: [id number] DC DATE:01/09/19 STATUS: DIS IN [facility] [address] [place] [address] END OF REPORT
== END 2019-01-09 15:32 | disposition home or self-care (01) | DRG 177 ==
LOC: D.ER 17:21 → D.M2 01-06 00:45
PROVIDERS: Emergency Medicine; Family Medicine; Internal Medicine Pulmonary Disease; ADMIT Family Medicine; ATTEND Family Medicine
DX: J69.0 Pneumonitis due to inhalation of food and vomit (principal); I50.23 Acute on chronic systolic (congestive) heart failure; I42.0 Dilated cardiomyopathy; J44.0 Chronic obstructive pulmonary disease with (acute) lower respiratory infection; J98.11 Atelectasis; K22.0 Achalasia of cardia; I11.0 Hypertensive heart disease with heart failure; I25.10 Atherosclerotic heart disease of native coronary artery without angina pectoris; I48.0 Paroxysmal atrial fibrillation; E78.5 Hyperlipidemia, unspecified; T18.128A Food in esophagus causing other injury, initial encounter; X58.XXXA Exposure to other specified factors, initial encounter; I08.1 Rheumatic disorders of both mitral and tricuspid valves; J30.9 Allergic rhinitis, unspecified; K21.9 Gastro-esophageal reflux disease without esophagitis; D64.9 Anemia, unspecified; E87.6 Hypokalemia; K80.20 Calculus of gallbladder without cholecystitis without obstruction; Z86.73 Personal history of transient ischemic attack (TIA), and cerebral infarction without residual deficits; Z72.0 Tobacco use

== ENCOUNTER → 2019-06-02 11:03 | Outpatient (CLI) | payer MEDICARE, OTHER ==
[2019-01-06 14:25] VITALS: BMI 22.3
[~2019-06-02 11:03] MED LIST changes: +LASIX20 MG PO; +MAG-OX 400 MG400 MG PO; +OMNICEF300 MG PO; +PROTONIX40 MG PO; +VIBRAMYCIN 100100 MG PO
== END | disposition home or self-care (01) ==
LOC: D.HCCECHO 11:03
PROVIDERS: ATTEND Internal Medicine Cardiovascular Disease
DX: I25.10 Atherosclerotic heart disease of native coronary artery without angina pectoris (principal)

== ENCOUNTER → 2019-06-14 13:25 | Outpatient (CLI) | payer MEDICARE, OTHER ==
[2019-01-06 14:25] VITALS: BMI 22.3
== END | disposition home or self-care (01) ==
LOC: D.RT 06-03 09:00 → D.RAD 13:25 → D.RT 14:00
PROVIDERS: ATTEND Internal Medicine Pulmonary Disease
DX: J44.9 Chronic obstructive pulmonary disease, unspecified (principal); J90 Pleural effusion, not elsewhere classified

== ENCOUNTER → 2019-06-22 08:59 | Outpatient (CLI) | payer MEDICARE, OTHER ==
[2019-01-06 14:25] VITALS: BMI 22.3
== END | disposition home or self-care (01) ==
LOC: D.RAD 08:59
PROVIDERS: ATTEND Thoracic Surgery (Cardiothoracic Vascular Surgery)
DX: R06.00 Dyspnea, unspecified (principal)

== ENCOUNTER 2019-07-11 13:15 | Inpatient (IN) | payer MEDICARE, OTHER ==
[~2019-07-11] VITALS: Ht 180.3 cm; Wt 70.3 kg
[2019-07-11] MEDS ORDERED: LASIX40 MG PO ×2 (13:39→13:41)
[2019-07-11 13:57] VITALS: BP 113/62; BMI 21.6
[2019-07-11 15:03] LABS: INR 1.45 (0.85-1.17); PROTIME 17.5 SECONDS (11.6-15.0)
--- NOTE | 2019-07-11 15:47 | NUR ---
CALLED FOR TELEMETRY, NONE AVAILABLE. PT PLACED ON WAITING LIST.
[2019-07-11 19:30] VITALS: BP 105/65
[2019-07-12 00:39] VITALS: BP 110/60
[2019-07-12 05:12] VITALS: BP 105/59
[2019-07-12 05:20] LABS: BASOPHILS 0.1 % (0-2); EOSINOPHILS 2.3 % (0-7); HEMATOCRIT 30.9 % (42.0-54.0); HEMOGLOBIN 9.9 g/dL (13.5-17.5); IMMATURE GRANULOCYTES 0.4 % (0-5); LYMPHOCYTES 3.2 % (15-50); MCV 93.6 fL (80.0-100.0); MEAN PLATELET VOLUME 10.8 fL (7.4-10.4); MONOCYTES 6.1 % (2-11); NEUTROPHILS 87.9 % (40-80); PLATELET COUNT 134 10x3/uL (130-400); WBC 9.7 10x3/uL (4.8-10.8)
[2019-07-12 05:39] LABS: ANION GAP 9.7 mmol/L (8-16); CARBON DIOXIDE 30.5 mmol/L (21.0-32.0); CREATININE - SERUM 1.3 mg/dL (0.6-1.3); MAGNESIUM - SERUM 1.9 mg/dL (1.8-2.4); POTASSIUM - SERUM 3.2 mmol/L (3.5-5.1)
[2019-07-12 09:17] VITALS: BP 110/57
[2019-07-12 12:23] VITALS: BP 107/59
[2019-07-12 15:21] VITALS: BMI 21.6
[2019-07-12 16:06] LABS: HEMATOCRIT 32.5 % (42.0-54.0); HEMOGLOBIN 10.3 g/dL (13.5-17.5); MCH 29.6 pg (26.0-34.0); MCHC 31.7 g/dL (31.0-37.0); MCV 93.4 fL (80.0-100.0); MEAN PLATELET VOLUME 9.9 fL (7.4-10.4); RBC 3.48 10x6/uL (4.20-6.10)
[2019-07-12 16:14] LABS: APTT 33.1 SECONDS (22.8-39.4)
[2019-07-12 16:15] LABS: INR 1.34 (0.85-1.17); PROTIME 16.4 SECONDS (11.6-15.0)
[2019-07-12 16:19] LABS: ALBUMIN 2.5 g/dL (3.4-5.0); ANION GAP 11.7 mmol/L (8-16); BILIRUBIN - TOTAL 0.71 mg/dL (0.2-1.3); CALCIUM 7.7 mg/dL (8.5-10.1); CARBON DIOXIDE 29.4 mmol/L (21.0-32.0); CREATININE - SERUM 1.3 mg/dL (0.6-1.3); POTASSIUM - SERUM 3.1 mmol/L (3.5-5.1); PROTEIN - SERUM 5.6 g/dL (6.4-8.2)
[2019-07-12 17:03] VITALS: BP 114/59
--- NOTE | 2019-07-12 18:46 | NUR ---
SHIFT ASSESSMENT COMPLETES. HE IS WITHOUT DISTRESS. HE HAS REMAINED WITHOUT CHANGE.CONT PLAN OF CARE
[2019-07-12 19:30] VITALS: BP 109/65
--- NOTE | 2019-07-12 21:10 | NUR ---
LYING IN BED. ALERT AND ORIENTED X4. GEN WEAKNESS NOTED. RESP IRREG, LABORED. O2 @ 3L/HFC. DENIES PAIN. HAD PROD COUGH TODAY WITH BLOOD TINGED SPUTUM. BBS CTA IN LT LOBES BUT DIMINISHED IN RT LOBES. TELEMETRY SHOWS SR WITH RATE OF 70S. SALINE LOCK NOTED TO LT FOREARM. SR ELEVATED X2. CL IN REACH. PT IS FALL RISK BUT SIGNED JONNY WAIVER TODAY.
[2019-07-12 23:30] LABS: APPEARANCE CLEAR (CLEAR); BILIRUBIN NEGATIVE (NEGATIVE); COLOR YELLOW (YELLOW); GLUCOSE NEGATIVE (NEGATIVE); KETONE NEGATIVE (NEGATIVE); NITRITE NEGATIVE (NEGATIVE); PROTEIN 1+ mg/dL (NEGATIVE); SPECIFIC GRAVITY 1.015 (1.005-1.020); UROBILINOGEN NORMAL (NORMAL)
[2019-07-12 23:31] LABS: BACTERIA FEW /hpf (NEGATIVE); CALCIUM OXALATE CRYSTALS 0-5 /hpf (NONE SEEN); EPITHELIAL CELLS 0-5 /hpf (0-5); HYALINE CAST 0-5 /lpf (NONE SEEN); MUCUS <1+ /lpf (NONE SEEN); RED CELLS - URINE 0-5 /hpf (0-5); WHITE CELLS - URINE 0-5 /hpf (NEGATIVE)
[2019-07-13] VITALS: BP 109/58
--- NOTE | 2019-07-13 00:05 | NUR ---
BACKHOE OPERATOR IN ROOM FOR V/S AND ALERTED STAFF TO SAO2 OF 87-88%. O2 @ 10L/HFC AT THIS TIME. NOTIFIED R.T. PT PLACED ON BIPAP AT THIS TIME. WILL CONT TO MONITOR CLOSELY.
--- NOTE | 2019-07-13 01:45 | NUR ---
BIPAP IN USE @ 60% PER RT. SAO2 94%. PT IS TACHYPNEIC WITH RATE OF 30S. CL IN REACH. PT TALKING OVER BIPAP.
[2019-07-13 05:00] VITALS: BP 96/60
[2019-07-13 09:05] VITALS: BP 100/61
[2019-07-13 13:22] VITALS: BP 97/59
[2019-07-13 17:31] VITALS: BP 103/59
[2019-07-13 20:00] VITALS: BP 101/67
[2019-07-14 04:00] VITALS: BP 98/60
--- NOTE | 2019-07-14 04:27 | NUR ---
REC'D CHGE OF SHIFT WALKING ROUNDS.RESP.HERE APPLYING BIPAP PER WIFES REQUEST.REINFORCED WITH .NPO AT MIDNITE VOICES UNDERSTANDING.WILL CONTINUE TO MONITOR FOR ANY CHGES IN RESP. STATUS AND FOLLOW CURRENT PLAN OF CARE
--- NOTE | 2019-07-14 09:22 | NUR ---
PT RESTING IN BED WITH SPOUSE AT BEDSIDE. O2 @ 15L HF. DENIES PAIN AT THIS TIME. PT REPORTS WISHES TO BE DNR. TO BE DISCUSSED WITH IV TO LEFT FOREARM SALINE LOC'D. DENIES FURTHER NEEDS AT THIS TIME. CL WITHIN REACH. ENCOURAGED TO CALL WITH NEEDS. CONTINUE POC
[2019-07-14 09:38] VITALS: BP 105/57
--- NOTE | 2019-07-14 11:23 | MORECARE ---
CASE MANAGEMENT DISCHARGE SUMMARY PATIENT: LAUREN ROSARIO UNIT: [id number] ADM DATE: 07/11/19 AGE: 69 : 48 SEX: M ROOM/BED: D.2230 AUTHOR: CRYSTAL MICHELLE PHYSICIAN: REFERRING PHYSICIAN: SAL MORALES MD DATE OF SERVICE: 07/14/19 Discharge Plan Patient Name: LAUREN ROSARIO [facility] [facility] 1950 Planned Disposition: Inpatient Rehab Anticipated Discharge Date: Discharge Date: Expected LOS: Initial Reviewer: [email or web address] Initial Review Date: 07/14/2019 Generated: 07/14/19 12:23 pm DCPIA - Discharge Planning Initial Assessment Updated by [email or web address]: Marlin Gleason on 07/14/19 11:22 am * Is the patient Alert and Oriented? Yes * How many steps to enter\exit or inside your home? Ramp/0 * PCP Dr. Miller * Pharmacy [facility] * Preadmission Environment Home with Family * ADLs Partial Dependent * Partial ADLs (Assistance needed) Ambulation Bathing Dressing * Equipment Other Oxygen Walker * List name and contact numbers for known caregivers / representatives who currently or will assist patient after discharge: Kaleigh Rosario - [email or web address] - [phone] * Verbal permission to speak to the caregivers and representatives has been obtained from the patient. Yes * Community resources currently utilized None * Please name any agencies selected above. DME for oxygen is [facility] * Additional services required to return to the preadmission environment? Yes * Can the patient safely return to the preadmission environment? Yes * Has this patient been hospitalized within the prior 30 days at any hospital? Yes Patient Name: LAUREN ROSARIO Page [phone] at 1123 All edits/amendments must be made on the electronic document DICTATION DATE: 07/14/191122 JUNIOR HIGH SCHOOL PRINCIPAL: ALYSON 07/14/191122 RPT#: [id number] DC DATE: STATUS: ADM IN [facility] [address] [place] [address] END OF REPORT
--- NOTE | 2019-07-14 11:32 | MORECARE ---
CASE MANAGEMENT DISCHARGE SUMMARY PATIENT: LAUREN ROSARIO UNIT: [id number] ADM DATE: 07/11/19 AGE: 69 : 48 SEX: M ROOM/BED: D.2230 AUTHOR: MIGUEL ANGELDOC PHYSICIAN: REFERRING PHYSICIAN: SAL MORALES MD DATE OF SERVICE: 07/14/19 Discharge Plan Patient Name: LAUREN ROSARIO Facility: [facility]:[place] : 1950 Planned Disposition: Inpatient Rehab Anticipated Discharge Date: Discharge Date: Expected LOS: Initial Reviewer: [email or web address] Initial Review Date: 07/14/2019 Generated: 07/14/19 12:31 pm Comments DCP- Discharge Planning Updated by [email or web address]: Marlin Gleason on 07/14/19 10:[address] Patient Name: LAUREN ROSARIO Admission Status: Elective Accout number: [id number] Admission Date: 07-11-2019 : 1950 Admission Diagnosis: Attending: SAL MORALES Current LOS: 3 Anticipated DC Date: Planned Disposition: Inpatient Rehab Primary Insurance: MEDICARE A & B Discharge Planning Comments: CM met with patient to complete initial dc planning assessment. CM educated patient on the CM role and verbal consent given by patient to complete assessment. Patient lives at home with his spouse. CM discussed availability of home health, rehab services, and medical equipment. Patient and both agree if he needs rehab, he would like to go to inpatient rehab at [facility]. States he has oxygen and portable from [facility], but does NOT have nebulizer or BIPAP if needed. Their physical address is [address] [place], [place] [address] in [place]. CM will continue to follow and will assist as needed with dc plans/needs. Supervisor Fish Processing: Marlin Gleason DCPIA - Discharge Planning Initial Assessment Updated by [email or web address]: Marlin Gleason on 07/14/19 11:22 am * Is the patient Alert and Oriented? Yes * How many steps to enter\exit or inside your home? Ramp/0 * PCP Dr. Miller * [facility] * Preadmission Environment Home with Family * ADLs Partial Dependent * Partial ADLs (Assistance needed) Ambulation Bathing Dressing * Equipment Other Oxygen Walker * List name and contact numbers for known caregivers / representatives who currently or will assist patient after discharge: Kaleigh Rosario - spouse - [phone] * Verbal permission to speak to the caregivers and representatives has been obtained from the patient. Yes * Community resources currently utilized None * Please name any agencies selected above. DME for oxygen is [facility] * Additional services required to return to the preadmission environment? Yes * Can the patient safely return to the preadmission environment? Yes * Has this patient been hospitalized within the prior 30 days at any hospital? Yes Coverage Notice Reviewer: [email or web address] Hood Gleason Notice Issued Date-Time: 07/14/2019 11:26 Notice Type: Patient Choice Letter Notice Delivered To: Family Member Relationship to Patient: Spouse Seasonal Warehouse Associate Name: Kaleigh Rosario Delivery Method: HAND - Hand Delivered Gladis Days: Prior Verbal Notification: Recipient Understood Notice: Yes Recipient Signature: Yes Med Rec Note Co-signed by Attending: Coverage Notice Comment: JERRELL for [facility] and [facility] inpatient rehab Last DP export: 07/14/19 10:23 a Patient Name: LAUREN ROSARIO Page [phone] at 1132 All edits/amendments must be made on the electronic document DICTATION DATE: 07/14/19 113 PRODUCTION FINISHER: ALYSON 07/14/19 1131 RPT#: [id number] DC DATE: STATUS: ADM IN [facility] [address] [place] [address] END OF REPORT
--- NOTE | 2019-07-14 12:12 | NUR ---
NUTRIITON F/U RECEIVED MD CONSULT. SPOKE WITH PT ~ DIETARY NEEDS/REQUESTS. PT STATED HE WAS "OKAY". DID REQUEST VANILLA BOOST PER MD RECOMMENDATION. WILL ADD TO CURRENT DIET ORDER. NOTE NPO STATUS AFTER MN. RD FOLLOWING
[2019-07-14 13:09] VITALS: BP 107/65
[2019-07-14 16:02] LABS: PROTIME 19.2 SECONDS (11.6-15.0)
[2019-07-14 16:05] LABS: INR 1.64 (0.85-1.17)
[2019-07-14 16:46] VITALS: BP 107/69
--- NOTE | 2019-07-14 20:00 | NUR ---
PATIENT RESTING IN BED WITH SPOUSE AT BEDSIDE. NO S/S OF ACUTE DISTRESS. NO C/O AT THIS TIME. PATIENT HAS IV IN L FOREARM SALINE LOC. IV IS PATENT WITHOUT REDNESS, SWELLING, OR TENDERNESS. PATIENT HAS A CONTINOUS PULSE OX, WITH 9L OF 02 HIGH FLOW. PATIENT ON TELEMETRY 70 BPM SINUS RYTHM WITH BBB. PATIENT HAVING SURGERY TOMMORROW. CONSENTS ARE SIGNED. CALL LIGHT IN PLACE WILL CONTINUE TO MONITOR.
--- NOTE | 2019-07-15 01:54 | NUR ---
I have reviewed this patient and I concur with the Shift Assessment completed by the Licensed Practical Nurse today this shift.
[2019-07-15 07:38] LABS: INR 1.7 (0.85-1.17)
--- NOTE | 2019-07-15 08:38 | NUR ---
SPOKE WITH DR ALMAGUER ABOUT CONSULT. NEW ORDERS RECEIVED FOR LABS.
[2019-07-15 08:49] VITALS: BP 98/62
--- NOTE | 2019-07-15 09:30 | NUR ---
PT IS UP AT BEDSIDE. HE HAS SHORTNESS OF BREATH. BACK TO BED WITH ASSIST OF NICOLE.MONITOR FOR NEEDS
[2019-07-15 09:52] LABS: APTT 34.3 SECONDS (22.8-39.4); INR 2.14 (0.85-1.17); PROTIME 23.6 SECONDS (11.6-15.0)
[2019-07-15 10:40] VITALS: Ht 180.3 cm; Wt 70.3 kg
[2019-07-15 11:12] LABS: NORMAL PLASMA / APTT 33.1 SECONDS (22.8-39.4); NORMAL PLASMA / PROTHROMBIN 15.7 SECONDS (11.6-15.0)
[2019-07-15 12:39] VITALS: BP 95/59
[2019-07-15 16:55] VITALS: BP 95/63
--- NOTE | 2019-07-15 18:33 | NUR ---
SITTING IM BED TALKING WITH VISITORS. NO COMPLAINTS AT PRESENT TIME. O2 ON AT 10 L/M HF N/C WITH PULSE OX READING OF 94%. HAS ONLY VOIDED INCONTINENT X 1 TODAY AND NO BM. STATES HE DOES NOT FEEL THOUGH HE NEEDS TO VOID. PT REMAINS DNR STATUS.
[2019-07-15 20:00] VITALS: BP 107/64
--- NOTE | 2019-07-15 20:00 | NUR ---
PATIENT RESTING IN BED WITH SPOUSE AT BEDSIDE. NO S/S OF ACUTE DISTRESS. NO C/O AT THIS TIME. PATIENT HAS A LEFT FOREARM IV SALINE LOC. IV IS PATENT WITHOUT REDNESS, SWELLING, OR TENDERNESS. PATIENT IS ON TELEMETRY 72 BPM, SINUS RYTHM WITH BBB. PATIENT IS ON A CONTINOUS PULSE OX. PATIENT IS ON 10L OF 02. PATIENT HAS BOTH SCD AND BEVERLY HOSE. CALL LIGHT IN PLACE. WILL CONTINUE TO MONITOR.
[2019-07-16] VITALS: BP 101/61
--- NOTE | 2019-07-16 01:58 | NUR ---
I have reviewed this patient and I concur with the Shift Assessment completed by the Licensed Practical Nurse today this shift.
--- NOTE | 2019-07-16 03:04 | NUR ---
PATIENT HAS REFUSED TELEMETRY. NURSE HAS TAKEN IT BACK TO MED 2. CALL LIGHT IN PLACE. WILL CONTINUE TO MONITOR.
[2019-07-16 04:00] VITALS: BP 109/53
--- NOTE | 2019-07-16 07:44 | NUR ---
[facility] CALLED. STATED THEY WOULD BE HERE WITHIN 45 MIN TO AN HOUR
--- NOTE | 2019-07-16 09:01 | NUR ---
LEFT WITHOUT SIGNING PAPERWORK. WENT TO ER LOADING DOC TO SEE IF I COULD FIND HIM. ER STATES THAT THEY HAD NOT SEEN THEM.
--- NOTE | 2019-07-17 18:30 | MORECARE ---
CASE MANAGEMENT DISCHARGE SUMMARY PATIENT: LAUREN ROSARIO UNIT: [id number] ADM DATE: 07/11/19 AGE: 69 : 48 SEX: M ROOM/BED: D.2230 AUTHOR: MIGUEL ANGELDOC PHYSICIAN: REFERRING PHYSICIAN: SAL MORALES MD DATE OF SERVICE: 07/17/19 Discharge Plan Patient Name: LAUREN ROSARIO Facility: [facility]:[place] : 1950 Planned Disposition: Inpatient Rehab Anticipated Discharge Date: Discharge Date: 07/16/2019 Expected LOS: Initial Reviewer: [email or web address] Initial Review Date: 07/14/2019 Generated: 07/17/19 7:30 pm Comments DCP- Discharge Planning Updated by [email or web address]: Marlin Gleason on 07/14/19 10:[address] Patient Name: LAUREN ROSARIO Admission Status: Elective Accout number: [id number] Admission Date: 07-11-2019 : 1950 Admission Diagnosis: Attending: SAL MORALES Current LOS: 3 Anticipated DC Date: Planned Disposition: Inpatient Rehab Primary Insurance: MEDICARE A & B Discharge Planning Comments: CM met with patient to complete initial dc planning assessment. CM educated patient on the CM role and verbal consent given by patient to complete assessment. Patient lives at home with his spouse. CM discussed availability of home health, rehab services, and medical equipment. Patient and both agree if he needs rehab, he would like to go to inpatient rehab at [facility]. States he has oxygen and portable from [facility], but does NOT have nebulizer or BIPAP if needed. Their physical address is [address] [place] [address] [address] in [place]. CM will continue to follow and will assist as needed with dc plans/needs. Supervisor Inspection And Testing: Marlin Gleason DCPIA - Discharge Planning Initial Assessment Updated by [email or web address]: Marlin Gleason on 07/14/19 11:22 am * Is the patient Alert and Oriented? Yes * How many steps to enter\exit or inside your home? Ramp/0 * PCP Dr. Miller * [facility] * Preadmission Environment Home with Family * ADLs Partial Dependent * Partial ADLs (Assistance needed) Ambulation Bathing Dressing * Equipment Other Oxygen Walker * List name and contact numbers for known caregivers / representatives who currently or will assist patient after discharge: Kaleigh Rosario - spouse - [phone] * Verbal permission to speak to the caregivers and representatives has been obtained from the patient. Yes * Community resources currently utilized None * Please name any agencies selected above. DME for oxygen is [facility] * Additional services required to return to the preadmission environment? Yes * Can the patient safely return to the preadmission environment? Yes * Has this patient been hospitalized within the prior 30 days at any hospital? Yes Coverage Notice Reviewer: [id number] Hood Gleason Notice Issued Date-Time: 07/14/2019 11:26 Notice Type: Patient Choice Letter Notice Delivered To: Family Member Relationship to Patient: Spouse Physicist [place] Name: Kaleigh Rosario Delivery Method: HAND - Hand Delivered Gladis Days: Prior Verbal Notification: Recipient Understood Notice: Yes Recipient Signature: Yes Med Rec Note Co-signed by Attending: Coverage Notice Comment: JERRELL for [facility] and [facility] inpatient rehab Last DP export: 07/14/19 10:32 a Patient Name: LAUREN ROSARIO Page [phone] at 1830 All edits/amendments must be made on the electronic document DICTATION DATE: 07/17/191829 YOUTH SUPPORT WORKER: ALYSON 07/17/191829 RPT#: [id number] DC DATE:07/16/19 STATUS: DIS IN [facility] [address] [place] [address] END OF REPORT
[2019-07-18 09:08] LABS: LUPUS - INTERPRETATION Comment: (()); LUPUS - THROMBIN TIME 14.7 sec (0.0-23.0); LUPUS - dRVVT 45.5 sec (0.0-47.0); PTT-LA 35.6 sec (0.0-51.9)
== END 2019-07-16 09:03 | DRG 291 ==
LOC: D.MS 13:15
PROVIDERS: Anesthesiology; Internal Medicine Hematology & Oncology; Thoracic Surgery (Cardiothoracic Vascular Surgery); ADMIT Family Medicine; ATTEND Family Medicine
DX: I11.0 Hypertensive heart disease with heart failure (principal); J96.01 Acute respiratory failure with hypoxia; E43 Unspecified severe protein-calorie malnutrition; J90 Pleural effusion, not elsewhere classified; D68.9 Coagulation defect, unspecified; J94.2 Hemothorax; I50.23 Acute on chronic systolic (congestive) heart failure; K22.0 Achalasia of cardia; I48.0 Paroxysmal atrial fibrillation; Z79.01 Long term (current) use of anticoagulants